=== PATIENT | female | born 1955 | race Caucasian/White ===

== ENCOUNTER 2022-03-04 00:29 | Inpatient (IN) ==
--- NOTE | 2022-03-04 01:03 | Emergency Department Note ---
Abdominal Pain HPI General Chief Complaint: Abdominal Pain Stated Complaint: ABD PAIN Time Seen by Provider: 03/04/22 00:36 Source: patient and EMS Mode of arrival: EMS Limitations: no limitations History of Present Illness HPI Narrative: Narrative: Patient presents to the ED via EMS with complaints of abdominal pain. Pain is rated 10/10 describes as achy all over. Says the pain has been worsening over the last 3 days. She also states that her ostomy bag has been leaking. Patient denies fever, chills, nausea, vomiting, hematuria, Arthur frequency. She denies any recent drug use. She states that she used to use meth she That was long time ago she has not used Many years. states she had the Ostomy placed about 3 months ago. She states it was done at our facility. Patient denies any other alleviating or aggravating factors. Patient states that she has nobody at home to care for her and she can no longer care for herself. Related Data Home Medications Medication Instructions Recorded Confirmed albuterol sulfate 90 mcg/actuation 2 puff inhalation .Q4-6H 03/03/17 12/21/18 aerosol inhaler (ProAir HFA) lisinopril 40 mg tablet 40 mg PO QDAY 03/03/17 12/21/18 verapamil 80 mg tablet 80 mg PO TID 03/03/17 12/21/18 gabapentin 100 mg capsule 100 mg PO TID 10/05/18 12/21/18 levothyroxine 200 mcg tablet 200 mcg PO QDAY 12/21/18 12/21/18 (Synthroid) levothyroxine 25 mcg tablet 25 mcg PO QDAY 12/21/18 12/21/18 (Synthroid) Previous Rx's Medication Instructions Recorded food supplemt, lactose-reduced 1 each PO QDAY #7,110 mL 12/10/18 oxycodone-acetaminophen 10 mg-325 See Rx Instructions PO Q6H PRN 03/21/19 mg tablet (Percocet) pain #60 tabs apixaban 5 mg (74 tabs) tablets in 5 mg PO ONCE #74 tabs 03/14/21 a dose pack (Eliquis DVT-PE Treat 30D Start) hydrocodone 5 mg-acetaminophen 325 1 tab PO Q8H PRN pain #12 tabs 03/14/21 mg tablet apixaban 5 mg tablet (Eliquis) 5 mg PO BID #60 tabs 04/28/21 clindamycin HCl 300 mg capsule 600 mg PO TID #14 caps 04/28/21 lisinopril 40 mg tablet 40 mg PO QDAY #30 tabs 06/12/21 Allergies Allergy/AdvReac Type Severity Reaction Status Date / Time codeine Allergy Unknown Verified 02/02/22 12:53 prochlorperazine Allergy Unknown Verified 02/02/22 12:53 [From Compazine] pseudoephedrine Allergy Unknown Verified 02/02/22 12:53 [From Sudafed] Review of Systems ROS ROS Narrative: Narrative: All systems ED: reviewed and negative except as stated. [facility] Narrative Patient History Narrative: Narrative: Medical/Surgical/Family History All Active Problems (Updated 03/04/22 @ 03:56 by Abiodun Giraldo DO) DVT (deep venous thrombosis) (Acute) Encounter for wound care (Acute) Painless rectal bleeding (Acute) Leg wound, right (Acute) Head injury due to trauma (Acute) Fall (Acute) Opioid abuse with withdrawal (Acute) Laceration of scalp (Acute) H/O Angelique thyroiditis (Acute) Hypertension (Acute) Encounter for ostomy care education (Acute) Influenza-like symptoms (Acute) Abdominal pain (Acute) Unable to care for self (Acute) Acute dehydration (Acute) Colostomy malfunction (Acute) Encounter for long-term (current) use of medications (Chronic) Unintentional weight loss (Chronic) Stress at home (Chronic) PTSD (post-traumatic stress disorder) (Chronic) Laceration without foreign body of right ear, initial encounter (Chronic) Osteoarthritis (Chronic) Thyroid disorder (Chronic) Urine incontinence (Chronic) Bronchitis (Chronic) Asthma (Chronic) Fainting (Chronic) Dizziness (Chronic) Heart attack (Chronic) Shortness of breath (Chronic) Chest pain (Chronic) Headache (Chronic) Lupus (Chronic) History of hepatitis C (Chronic) Tobacco abuse (Chronic) Hypertension (Chronic) Neck pain, chronic (Chronic) Failure to gain weight in adult (Chronic) Actinic keratosis (Chronic) DDD (degenerative disc disease), cervical (Chronic) Vitamin D deficiency (Chronic) Angelique's thyroiditis (Chronic) Raynauds phenomenon (Chronic) Rib pain on right side (Chronic) Arthritis (Chronic) Elevated troponin (Acute) Hypothyroidism (Acute) Hypertensive urgency (Acute) Urinary tract infection (Acute) Myxedema (Acute) Medical History (Updated 03/04/22 @ 03:56 by Abiodun Giraldo DO) Actinic keratosis Arthritis Asthma Bronchitis Chest pain DDD (degenerative disc disease), cervical Dizziness Elevated troponin Encounter for long-term (current) use of medications Failure to gain weight in adult Fainting Gout Angelique's thyroiditis Headache Heart attack History of hepatitis C Hypertension Hypertensive urgency Hypothyroidism Laceration without foreign body of right ear, initial encounter Lupus Myxedema Neck pain, chronic Osteoarthritis Peptic ulcer Poor sleep PTSD (post-traumatic stress disorder) Raynauds phenomenon Rib pain on right side Shortness of breath Stress at home Thyroid disorder Tobacco abuse Unintentional weight loss Urinary tract infection Urine incontinence Vitamin D deficiency Surgical History History of eye surgery (~1960) Family History Mother , age 73 cancer and heart failure Glaucoma Thyroid disease Kidney disease Hypertension Heart disease Diabetes Asthma Arthritis Father Glaucoma Cancer Thyroid disease Hypertension Diabetes Arthritis Grandmother Cancer Maternal Thyroid disease Maternal Hypertension Maternal Heart disease Maternal Diabetes Maternal Arthritis Maternal Stroke Paternal Grandfather Cancer Maternal Arthritis Maternal Stroke Paternal Brother Heroin addiction Other Family history of drug abuse Family history of mental disorder Social History Smoking Status: Current every day smoker Alcohol Intake Frequency: does not drink Substance Use: does not use Exam Narrative Narrative: Narrative: General Limitations: no limitations General appearance: Present appears intoxicated ENT ENT: Present normal oropharynx and mucous membranes dry Respiratory Respiratory: Present normal lung sounds bilaterally; Absent respiratory distress Cardiovascular Cardiovascular: Present regular rate and normal rhythm Adbominal Abdominal: Present soft, tenderness and other (Right-sided ostomy) Expanded Abdominal Abdominal Tenderness: Present diffuse Extremities Extremities: Present normal capillary refill Back Back: Absent CVA tenderness (R) or CVA tenderness (L) Neurological Neurological: Present alert and oriented X3 Psychiatric Psychiatric: Present flat affect and serious Skin Skin: Present warm (WNL) and normal color Course Course Course Narrative: Patient was evaluated for complaints of abdominal pain. Physical exam showed that she had diffuse tenderness to palpation. Her ostomy was leaking so it was changed out. There is no signs of infection around the ostomy site. Patient was covered in feces from her chin down to her ankles. The nurses did a good job in and clean her up. Patient Asked for food to eat but I advised her that we would have to wait until we get the CT results. Labs were obtained and were unremarkable with the exception of elevated BUN and creatinine suggestive of dehydration. Patient was given some IV fluids. Her white cell count was within normal limits. She was afebrile with a normal lactic acid. CT abdomen pelvis obtained with image reviewed myself with no acute intra-abdominal findings. Pancreatitis, appendicitis, small bowel obstruction wall considered and ruled out. Patient became anxious so she was given some IV Benadryl given some Tylenol for her discomfort. She was given a meal she stated that she felt much better. Patient states that she lives alone and she cannot take care of herself. Patient was seen over at [facility] recently and I obtain those records. During that time Adult Protective Services was contacted and the case was started due to the fact that patient's living conditions were unsatisfactory. At this point patient does not meet admission criteria but she has also proven not to be able to care for herself. It is my opinion that she is not a safe discharge. We will keep patient here in the ED and have case management consult in the morning to see if we can find placement or help for the patient. Patient is agreeable with this plan. Case is signed out to Dr. rBown at [phone] who will assume care pending case management evaluation for disposition. Reevaluation(s) Reevaluation #1: Patient remains hemodynamic stable. No new complaints at this time. Time: 01:45 Vital Signs Vital signs: Vital Signs Temperature 97.5 F 03/04/22 00:31 Pulse Rate 79 03/04/22 00:31 Respiratory Rate 17 03/04/22 00:31 Blood Pressure 197/122 03/04/22 00:31 Temperature 97.5 F 03/04/22 00:31 Pulse Rate 89 03/04/22 04:12 Respiratory Rate 17 03/04/22 00:31 Blood Pressure 178/117 03/04/22 04:01 Pulse Oximetry (%) 94 03/04/22 04:12 MDM MDM Narrative Medical decision making narrative: Narrative: Differential Diagnosis Differential Diagnosis: Bowel obstruction, pancreatitis, appendicitis Medical Records Medical records reviewed: Yes I reviewed the patient's medical records. Lab Data Lab results reviewed: Yes I reviewed the patient's lab results. Result diagrams: 03/04/22 01:40 Labs: Lab Results 03/04/22 03/04/22 03/04/22 Range/Units 01:31 01:40 01:40 WBC 10.3 (4.5-11.0) K/mcL RBC 4.86 (3.59-5.38) M/mcL Hgb 14.4 (11.2-15.7) g/dL Hct 44.2 (34.1-44.9) % POC Hct (36-48) MCV 90.9 (80.0-100.0) fL MCH 29.6 (26.0-34.0) pg MCHC 32.6 (31.0-36.0) g/dL RDW 14.9 H (11.5-14.5) % Plt Count 280 (140-440) K/mcL MPV 11.3 (8.8-12.5) fL Immature Gran % (Auto) 0.8 H (0.0-0.5) % Neut % (Auto) 65.3 (38.0-78.0) % Lymph % (Auto) 26.6 (15.5-49.0) % [place] % (Auto) 6.0 (1.0-12.0) % Eos % (Auto) 0.7 (0.0-7.0) % Baso % (Auto) 0.6 (0.0-2.0) % Lymph # (Auto) 2.73 (1.50-4.80) K/mcL [place] # (Auto) 0.62 (0.10-0.90) K/mcL Eos # (Auto) 0.07 (0.00-0.70) K/mcL Baso # (Auto) 0.06 (0.00-0.30) K/mcL Immature Gran # 0.08 H (0.00-0.05) K/mcl Absolute Neutrophils 6.72 (1.80-8.00) K/mcL POC VBG pH 7.40 (7.32-7.42) POC VBG pCO2 at Temp 42.6 (41-51) POC VBG pO2 28 (25-40) POC VBG HCO3 26.4 (24-28) POC VBG Total CO2 28.0 (25-29) POC Venous O2 Sat 52.0 (40-70) POC VBG Base Excess 2.0 (-2-2) VBG Lactic Acid 1.0 (0.5-2) POC Sodium (133-145) POC Potassium (3.3-5.1) POC Chloride (96-108) POC Total CO2 (22-30) POC BUN (6-20) POC Creatinine (0.6-1.2) POC Glucose (70-105) POC WB Ioniz Calcium (1.16-1.32) Total Bilirubin 0.3 (0.1-1.0) mg/dL Direct Bilirubin < 0.2 (0-0.3) mg/dL AST 41 H (<32) U/L ALT 21 (<40) U/L Alkaline Phosphatase 87 (39-117) U/L Total Protein 8.3 (5.9-8.4) gm/dL Albumin 3.7 (3.2-5.2) gm/dL Globulin 4.6 H (2.2-3.7) gm/dL Amylase 149 H (28-100) U/L Lipase 61 H (7-60) U/L Procalcitonin (<0.10) ng/mL 03/04/22 03/04/22 Range/Units 01:40 01:55 WBC (4.5-11.0) K/mcL RBC (3.59-5.38) M/mcL Hgb (11.2-15.7) g/dL Hct (34.1-44.9) % POC Hct 44.0 (36-48) MCV (80.0-100.0) fL MCH (26.0-34.0) pg MCHC (31.0-36.0) g/dL RDW (11.5-14.5) % Plt Count (140-440) K/mcL MPV (8.8-12.5) fL Immature Gran % (Auto) (0.0-0.5) % Neut % (Auto) (38.0-78.0) % Lymph % (Auto) (15.5-49.0) % [place] % (Auto) (1.0-12.0) % Eos % (Auto) (0.0-7.0) % Baso % (Auto) (0.0-2.0) % Lymph # (Auto) (1.50-4.80) K/mcL [place] # (Auto) (0.10-0.90) K/mcL Eos # (Auto) (0.00-0.70) K/mcL Baso # (Auto) (0.00-0.30) K/mcL Immature Gran # (0.00-0.05) K/mcl Absolute Neutrophils (1.80-8.00) K/mcL POC VBG pH (7.32-7.42) POC VBG pCO2 at Temp (41-51) POC VBG pO2 (25-40) POC VBG HCO3 (24-28) POC VBG Total CO2 (25-29) POC Venous O2 Sat (40-70) POC VBG Base Excess (-2-2) VBG Lactic Acid (0.5-2) POC Sodium 139 (133-145) POC Potassium 4.3 (3.3-5.1) POC Chloride 107 (96-108) POC Total CO2 23.0 (22-30) POC BUN 26 H (6-20) POC Creatinine 1.8 H (0.6-1.2) POC Glucose 80 (70-105) POC WB Ioniz Calcium 1.13 L (1.16-1.32) Total Bilirubin (0.1-1.0) mg/dL Direct Bilirubin (0-0.3) mg/dL AST (<32) U/L ALT (<40) U/L Alkaline Phosphatase (39-117) U/L Total Protein (5.9-8.4) gm/dL Albumin (3.2-5.2) gm/dL Globulin (2.2-3.7) gm/dL Amylase (28-100) U/L Lipase (7-60) U/L Procalcitonin 0.11 H (<0.10) ng/mL ED POC Tests ED POC Tests: NIRAV - Influenza A Negative NIRAV - Influenza B Negative NIRAV - SARS Antigen Negative Radiology Data Radiology results reviewed: Yes I reviewed the patient's radiology results. Radiology results narrative: CT abdomen pelvis obtained with image reviewed myself, agree with radiologist interpretation EKG Data EKG #1: EKG attestation: Yes I reviewed and interpreted this EKG. EKG shows normal: sinus rhythm Rate: normal Rhythm: NSR [place]/QRS: normal Voltage: c/w LVH Heart block present: None ST segment elevation in: None QTc: prolonged Interpretation: no acute changes Core Measures AMI Core Measures Followed: Yes Discharge Plan Patient/Caregiver Discharge Instructions Pt seen by TRANSPORTATION DIRECTOR/PA only: No Clinical Impression: Unable to care for self, Acute dehydration, Colostomy malfunction Abdominal pain Qualifiers: Abdominal location: generalized Qualified Code(s): R10.84 - Generalized abdomi nal pain Patient Disposition: Still a Patient Condition: Undetermined Follow up with: Ambreen Braden MD [Primary Care Provider] - Prescriptions: No Action levothyroxine [Synthroid] 200 mcg tablet 200 mcg PO QDAY levothyroxine [Synthroid] 25 mcg tablet 25 mcg PO QDAY food supplemt, lactose-reduced liquid 1 each PO QDAY Qty: 7110 6RF oxycodone-acetaminophen [Percocet] 10-325 mg tablet See Rx Instructions PO Q6H PRN (Reason: pain) Qty: 60 0RF Rx Instructions: 1-2 PO every 6 hours PRN; verapamil 80 mg tablet 80 mg PO TID lisinopril 40 mg tablet 40 mg PO QDAY albuterol sulfate [ProAir HFA] 90 mcg/actuation HFA aerosol inhaler 2 puff INHALATION .Q4-6H gabapentin 100 mg capsule 100 mg PO TID hydrocodone-acetaminophen 5-325 mg tablet 1 tab PO Q8H PRN (Reason: pain) Qty: 12 0RF Eliquis DVT-PE Treat 30D Start 5 mg (74 tabs) tablets,dose pack 5 mg PO ONCE Qty: 74 0RF Rx Instructions: Take 10 mg twice daily for 7 days and then 5 mg twice daily for the next 3 weeks. clindamycin HCl 300 mg capsule 600 mg PO TID Qty: 14 0RF Eliquis 5 mg tablet 5 mg PO BID Qty: 60 0RF lisinopril 40 mg tablet 40 mg PO QDAY Qty: 30 0RF
[2022-03-04] MEDS ORDERED: hydrALAZINE 20 MG/ML VIAL IM ONE (01:38)
[2022-03-04 01:59] LABS: POC Calcium, Ionized 1.13 (1.16-1.32); POC Creatinine 1.8 (0.6-1.2); POC Potassium 4.3 (3.3-5.1)
[2022-03-04] MEDS ORDERED: 0.9 % SODIUM CHLORIDE 1,000 ML IV ONE (02:01)
[2022-03-04 02:55] LABS: Basophils # (Auto) 0.06 K/mcL (0.00-0.30); Basophils % (Auto) 0.6 % (0.0-2.0); Eosinophils # (Auto) 0.07 K/mcL (0.00-0.70); Eosinophils % (Auto) 0.7 % (0.0-7.0); Hematocrit 44.2 % (34.1-44.9); Hemoglobin 14.4 g/dL (11.2-15.7); Lymphocytes # (Auto) 2.73 K/mcL (1.50-4.80); Lymphocytes % (Auto) 26.6 % (15.5-49.0); Mean Cell Volume 90.9 fL (80.0-100.0); Mean Corpuscular HGB Conc 32.6 g/dL (31.0-36.0); Mean Platelet Volume 11.3 fL (8.8-12.5); Monocytes # (Auto) 0.62 K/mcL (0.10-0.90); Neutrophils % (Auto) 65.3 % (38.0-78.0); Platelet Count 280 K/mcL (140-440); RBC 4.86 M/mcL (3.59-5.38); Red Cell Distribution Width 14.9 % (11.5-14.5); WBC 10.3 K/mcL (4.5-11.0)
[2022-03-04 03:20] LABS: Amylase 149 U/L (28-100)
--- NOTE | 2022-03-04 03:22 | Cat Scan Report ---
CLINICAL INFORMATION: Abdominal pain COMPARISON: None. TECHNIQUE: 0.625 mm helical slices were obtained from the mid heart through the subtrochanteric regions. Following reconstruction, 2.5 mm sagittal, coronal and axial reformatted images were processed and reviewed at bone and soft tissue windows.The exam was performed using radiation dose optimization techniques including, but not limited to, automated exposure control, adjustment of the mA and/or kV according to patient size and use of iterative reconstruction technique. FINDINGS: The lung bases show subsegmental atelectasis in the posterior lower lobes.. No effusions. The visualized heart is mildly enlarged with a small pericardial effusion. This is unchanged. Abdominal images show the gallbladder is surgically absent. Intrahepatic and common bile ducts are normal caliber: CBD is 6 mm. The noncontrasted liver, both kidneys, spleen, pancreas and aorta are normal in size, configuration and attenuation without focal lesion. Mild bilateral adrenal hyperplasia demonstrates long-term stability since CT 2017. There is no free air, free fluid or adenopathy. Pelvic images show urinary bladder is unremarkable. Slightly retroflexed uterus is normal postmenopausal size: 6 x 3 cm. The region of the ovaries are normal. Partial colectomy noted with colostomy in the right upper quadrant. Pruett's pouch is seen in the pelvic region. Small and large bowel show mild symmetric dilatation patible with mild ileus. No evidence of bowel obstruction. The right iliacus hematoma, seen on 11/07/2021 CT, has completely resolved. Muscle and fascial planes otherwise normal. Bone windows show no osseous abnormality. IMPRESSION: 1. Mild ileus. 2. Small chronic pericardial effusion-stable. 3. Mild chronic elevation left diaphragm-stable 4. Complete interval resolution in right iliacus hematoma since a comparison exam over four months ago. 5. Mild bilateral adrenal hyperplasia-chronic Interpreted and Authenticated by: Dave Fair 03/04/22
[2022-03-04 03:23] LABS: ALT/SGPT 21 U/L (<40); AST/SGOT 41 U/L (<32); Albumin 3.7 gm/dL (3.2-5.2); Alkaline Phosphatase 87 U/L (39-117); Bilirubin,Direct < 0.2 mg/dL (0-0.3); Bilirubin,Total 0.3 mg/dL (0.1-1.0); Globulin 4.6 gm/dL (2.2-3.7)
[2022-03-04] MEDS ORDERED: ACETAMINOPHEN 325 MG TABLET PO ONE (04:03)
[2022-03-04] MEDS ORDERED: diphenhydrAMINE 50 MG/ML VIAL IV ONE (04:03)
[2022-03-04] MEDS ORDERED: diphenhydrAMINE 50 MG/ML VIAL IM ONE (04:07)
--- NOTE | 2022-03-04 07:23 | Emergency Department Note ---
Course Course Course Narrative: Received care of patient at shift change with transfer for Dr. Abiodun Giraldo, prior nighttime ED physician. Please see previous chart for full details. In general this patient has a history of using colostomy and has some social determinants of health to include a lack of help to manage her colostomy at home. She came with complaint of abdominal pain and colostomy over full with stool all over her body. Currently pending a case management evaluation for disposition. 0802: RN caring for patient does report that she pulled her IV out and she is combative requests Ativan to help with NG tube insertion and to reestablish IV line. Ativan 0.5 mg IM ordered. 1006: Advised RN caring for patient that NG tube went up and bronchial of the lung and radiologist recommended removing this. She did remove this and try to reinsert but had difficulty getting it reinserted and had significant bout of coughing suggesting she might be back in the lung again. The tube was then removed altogether. I will speak with Dr. Summers, on-call general surgeon for his recommendations. 1107: Spoke with Parvez with [facility], requests images be transfered over. Their General Surgeon is in surgery now. Will call back when Surgeon is available for consult. 1535: Advised ED DANIAL Joseph that Dr. Summers willing to consult from General Surgery Standpoint. Will try and get Dr. Weiss on the line. 1540: Spoke with Dr. Weiss, hospitalist, advised him that I spoke with 2 general surgeons both with that this is not a surgical issue. This is more of a social admit request and he is willing the patient and to hopefully help get her placement. Discussed all patient's lab results, presentation, imaging results and consults with Dr. Summers, general surgeon as well as with the [place] general surgeon. Dr. Summers is willing to consult. He will bring the patient in under observation status to the medical floor. Reevaluation(s) Reevaluation #1: Advised by RN caring for patient patient that their is blood in her colostomy bag. As she does seem to be confused. Reevaluated, stable, has bowel exiting the stoma that is very tender on attempt to reduce, bowel seems distended from the STOMA. RN did report that patient had alot of gas in her colostomy bag. Will give Protonix and Pepcid IV to see if this will help with her bleeding. We will review all CT imaging and consider getting repeat lactate and VBG to evaluate for acidosis and any kind of bowel necrosis. Time: 07:49 Reevaluation #2: Reevaluated patient at bedside with Dr. Browne in her room. Dr. Browne did try to manually reduce the stomal herniation and did not have great success but did get the tissue pink up a little bit but I answered his finger into the canal of the ostomy and explored deeply. He states that it does go down through the fascia and he does not feel that there is a surgical issue here however she is pretty hypertensive at 205 systolic at the bedside. He suggested for her to hospitalize her she should probably go up to [facility] where she had this colostomy placed in the right upper quadrant a few months ago. Dr. Tristan chandra did suggest applying sugar to the tissues on the herniated tissue through the stoma and see if this would help reduce the herniated bowel. Time: 10:30 Consultations Consultation #1: Spoke with Dr. Summers, general surgeon on-call. He states that he is reviewed the images and the labs and everything and does not feel that she has acute surgical process but will come down and see the patient. Time: 10:12 Consultation #2: With Dr. Herring, general surgeon on-call at [facility], he has reviewed patient's films. He does not feel there is anything surgically can offer her [facility] their house is full and they do not have ability to bring her there for hospitalist care. Time: 14:22 Consultation #3: Spoke with Dr. Summers, general surgeon, he is willing to consult in the event patient is admitted here to this hospital. Time: 15:31 Vital Signs Vital signs: Vital Signs Temperature 97.5 F 03/04/22 00:31 Pulse Rate 79 03/04/22 00:31 Respiratory Rate 17 03/04/22 00:31 Blood Pressure 197/122 03/04/22 00:31 Temperature 99.6 F H 03/04/22 11:01 Pulse Rate 87 03/04/22 15:24 Respiratory Rate 24 H 03/04/22 15:24 Blood Pressure 152/109 03/04/22 15:17 Pulse Oximetry (%) 97 03/04/22 15:24 Oxygen Delivery Method 03/04/22 09:16 MDM MDM Narrative Medical decision making narrative: Narrative: Patient presents to the emerged part with complaint of abdominal pain. Please see HPI, physical, chart above for further details. In short patient has a colostomy bag that was completely full and has stool basically head to toe. She used to have a caregiver but no longer does and has not able to care for self effectively at home. CT of the abdomen pelvis does show that she had a little bit of ileus. No obstruction was noted. We did attempt to place an NG tube to low intermittent suction to hopefully reduce this but were unsuccessful as we had in the lungs twice. NG tube was removed. I consulted Dr. Summers, general surgeon, who did come see the patient and did not feel that she had a surgical process. He recommended that if were going to transfer her that she might should go back to the original facility that did her colonoscopy. VALENTIN Saldaña later advised me that this was [facility] who does not have any beds available. So we then did Talk to [facility] where she had previously had other GI surgery performed and I spoke with the general surgeon there and he does not feel after reviewing her images and listening to her clinical presentation and progress that she did not need surgical intervention either. I subsequently spoke with Dr. Summers again to see if he be willing to consult if we bring the patient in to the hospital. [facility] for observation status and hopefully getting her some help with management of her health as she does not appear to be able to do this effectively. Dr. Summers was willing to consult and I then spoke with Dr. Weiss, hospitalist on-call, who is willing to admit the patient to the hospital under observation status to help get her placed. Sepsis Sepsis Identified: No Differential Diagnosis Differential Diagnosis: Includes but not limited to bowel obstruction, ileus, substance abuse Medical Records Medical records reviewed: Yes I reviewed the patient's medical records. Lab Data Result diagrams: 03/04/22 01:40 Labs: Lab Results 03/04/22 03/04/22 03/04/22 Range/Units 01:31 01:40 01:40 WBC 10.3 (4.5-11.0) K/mcL RBC 4.86 (3.59-5.38) M/mcL Hgb 14.4 (11.2-15.7) g/dL Hct 44.2 (34.1-44.9) % POC Hct (36-48) MCV 90.9 (80.0-100.0) fL MCH 29.6 (26.0-34.0) pg MCHC 32.6 (31.0-36.0) g/dL RDW 14.9 H (11.5-14.5) % Plt Count 280 (140-440) K/mcL MPV 11.3 (8.8-12.5) fL Immature Gran % (Auto) 0.8 H (0.0-0.5) % Neut % (Auto) 65.3 (38.0-78.0) % Lymph % (Auto) 26.6 (15.5-49.0) % [place] % (Auto) 6.0 (1.0-12.0) % Eos % (Auto) 0.7 (0.0-7.0) % Baso % (Auto) 0.6 (0.0-2.0) % Lymph # (Auto) 2.73 (1.50-4.80) K/mcL [place] # (Auto) 0.62 (0.10-0.90) K/mcL Eos # (Auto) 0.07 (0.00-0.70) K/mcL Baso # (Auto) 0.06 (0.00-0.30) K/mcL Immature Gran # 0.08 H (0.00-0.05) K/mcl Absolute Neutrophils 6.72 (1.80-8.00) K/mcL POC VBG pH 7.40 (7.32-7.42) POC VBG pCO2 at Temp 42.6 (41-51) POC VBG pO2 28 (25-40) POC VBG HCO3 26.4 (24-28) POC VBG Total CO2 28.0 (25-29) POC Venous O2 Sat 52.0 (40-70) POC VBG Base Excess 2.0 (-2-2) VBG Lactic Acid 1.0 (0.5-2) POC Sodium (133-145) POC Potassium (3.3-5.1) POC Chloride (96-108) POC Total CO2 (22-30) POC BUN (6-20) POC Creatinine (0.6-1.2) POC Glucose (70-105) POC WB Ioniz Calcium (1.16-1.32) Total Bilirubin 0.3 (0.1-1.0) mg/dL Direct Bilirubin < 0.2 (0-0.3) mg/dL AST 41 H (<32) U/L ALT 21 (<40) U/L Alkaline Phosphatase 87 (39-117) U/L Total Creatine Kinase (24-170) U/L CK-MB (CK-2) (<3.7) ng/mL Total Protein 8.3 (5.9-8.4) gm/dL Albumin 3.7 (3.2-5.2) gm/dL Globulin 4.6 H (2.2-3.7) gm/dL Amylase 149 H (28-100) U/L Lipase 61 H (7-60) U/L Procalcitonin (<0.10) ng/mL TSH (0.27-5.01) uIU/mL Free T4 (0.93-1.70) ng/dL Urine Color Urine Appearance (Clear) Urine pH (5.0-9.0) Ur Specific Mongo (1.000-1.035) Urine Protein (Negative) mg/dL Urine Glucose (UA) (Negative) mg/dL Urine Ketones (Negative) mg/dL Urine Occult Blood (Negative) jair/mcL Urine Nitrate (Negative) Urine Bilirubin (Negative) mg/dL Urine Urobilinogen mg/dL Ur Leukocyte Esterase (Negative) /uL Urine RBC (0-3) /hpf Urine WBC (0-4) /hpf Ur Squamous Epith Cells (0-4) /hpf Urine Bacteria (0) /hpf Hyaline Casts (0-2) /lph Urine Mucus (None) /hpf Ur Culture Indicated? Urine Opiates Screen Ur Opiates Confirm Ur Oxycodone Screen U Oxycod/Oxymor Confirm Urine Methadone Screen Ur Methadone Confirm Ur Barbiturates Screen Ur Barbiturate Confirm Ur Phencyclidine Scrn Urine PCP Confirm Ur Amphetamines Screen U Benzodiazepines Scrn Ur Benzodiazepine, Qnt Urine Cocaine Screen Urine Cocaine Confirm U Marijuana (THC) Screen 03/04/22 03/04/22 03/04/22 Range/Units 01:40 01:55 08:00 WBC (4.5-11.0) K/mcL RBC (3.59-5.38) M/mcL Hgb (11.2-15.7) g/dL Hct (34.1-44.9) % POC Hct 44.0 (36-48) MCV (80.0-100.0) fL MCH (26.0-34.0) pg MCHC (31.0-36.0) g/dL RDW (11.5-14.5) % Plt Count (140-440) K/mcL MPV (8.8-12.5) fL Immature Gran % (Auto) (0.0-0.5) % Neut % (Auto) (38.0-78.0) % Lymph % (Auto) (15.5-49.0) % [place] % (Auto) (1.0-12.0) % Eos % (Auto) (0.0-7.0) % Baso % (Auto) (0.0-2.0) % Lymph # (Auto) (1.50-4.80) K/mcL [place] # (Auto) (0.10-0.90) K/mcL Eos # (Auto) (0.00-0.70) K/mcL Baso # (Auto) (0.00-0.30) K/mcL Immature Gran # (0.00-0.05) K/mcl Absolute Neutrophils (1.80-8.00) K/mcL POC VBG pH (7.32-7.42) POC VBG pCO2 at Temp (41-51) POC VBG pO2 (25-40) POC VBG HCO3 (24-28) POC VBG Total CO2 (25-29) POC Venous O2 Sat (40-70) POC VBG Base Excess (-2-2) VBG Lactic Acid (0.5-2) POC Sodium 139 (133-145) POC Potassium 4.3 (3.3-5.1) POC Chloride 107 (96-108) POC Total CO2 23.0 (22-30) POC BUN 26 H (6-20) POC Creatinine 1.8 H (0.6-1.2) POC Glucose 80 (70-105) POC WB Ioniz Calcium 1.13 L (1.16-1.32) Total Bilirubin (0.1-1.0) mg/dL Direct Bilirubin (0-0.3) mg/dL AST (<32) U/L ALT (<40) U/L Alkaline Phosphatase (39-117) U/L Total Creatine Kinase (24-170) U/L CK-MB (CK-2) (<3.7) ng/mL Total Protein (5.9-8.4) gm/dL Albumin (3.2-5.2) gm/dL Globulin (2.2-3.7) gm/dL Amylase (28-100) U/L Lipase (7-60) U/L Procalcitonin 0.11 H (<0.10) ng/mL TSH > 100 H (0.27-5.01) uIU/mL Free T4 < 0.10 L (0.93-1.70) ng/dL Urine Color Urine Appearance (Clear) Urine pH (5.0-9.0) Ur Specific Mongo (1.000-1.035) Urine Protein (Negative) mg/dL Urine Glucose (UA) (Negative) mg/dL Urine Ketones (Negative) mg/dL Urine Occult Blood (Negative) jair/mcL Urine Nitrate (Negative) Urine Bilirubin (Negative) mg/dL Urine Urobilinogen mg/dL Ur Leukocyte Esterase (Negative) /uL Urine RBC (0-3) /hpf Urine WBC (0-4) /hpf Ur Squamous Epith Cells (0-4) /hpf Urine Bacteria (0) /hpf Hyaline Casts (0-2) /lph Urine Mucus (None) /hpf Ur Culture Indicated? Urine Opiates Screen Ur Opiates Confirm Ur Oxycodone Screen U Oxycod/Oxymor Confirm Urine Methadone Screen Ur Methadone Confirm Ur Barbiturates Screen Ur Barbiturate Confirm Ur Phencyclidine Scrn Urine PCP Confirm Ur Amphetamines Screen U Benzodiazepines Scrn Ur Benzodiazepine, Qnt Urine Cocaine Screen Urine Cocaine Confirm U Marijuana (THC) Screen 03/04/22 03/04/22 03/04/22 Range/Units 08:29 08:30 08:34 WBC (4.5-11.0) K/mcL RBC (3.59-5.38) M/mcL Hgb (11.2-15.7) g/dL Hct (34.1-44.9) % POC Hct (36-48) MCV (80.0-100.0) fL MCH (26.0-34.0) pg MCHC (31.0-36.0) g/dL RDW (11.5-14.5) % Plt Count (140-440) K/mcL MPV (8.8-12.5) fL Immature Gran % (Auto) (0.0-0.5) % Neut % (Auto) (38.0-78.0) % Lymph % (Auto) (15.5-49.0) % [place] % (Auto) (1.0-12.0) % Eos % (Auto) (0.0-7.0) % Baso % (Auto) (0.0-2.0) % Lymph # (Auto) (1.50-4.80) K/mcL [place] # (Auto) (0.10-0.90) K/mcL Eos # (Auto) (0.00-0.70) K/mcL Baso # (Auto) (0.00-0.30) K/mcL Immature Gran # (0.00-0.05) K/mcl Absolute Neutrophils (1.80-8.00) K/mcL POC VBG pH 7.54 H 7.37 (7.32-7.42) POC VBG pCO2 at Temp 23.0 L 38.4 L (41-51) POC VBG pO2 73 H 36 (25-40) POC VBG HCO3 19.6 L 22.3 L (24-28) POC VBG Total CO2 20.0 L 23.0 L (25-29) POC Venous O2 Sat 97.0 H 68.0 (40-70) POC VBG Base Excess -3.0 L -3.0 L (-2-2) VBG Lactic Acid 1.1 1.4 (0.5-2) POC Sodium (133-145) POC Potassium (3.3-5.1) POC Chloride (96-108) POC Total CO2 (22-30) POC BUN (6-20) POC Creatinine (0.6-1.2) POC Glucose (70-105) POC WB Ioniz Calcium (1.16-1.32) Total Bilirubin (0.1-1.0) mg/dL Direct Bilirubin (0-0.3) mg/dL AST (<32) U/L ALT (<40) U/L Alkaline Phosphatase (39-117) U/L Total Creatine Kinase 539 H (24-170) U/L CK-MB (CK-2) 17.4 H (<3.7) ng/mL Total Protein (5.9-8.4) gm/dL Albumin (3.2-5.2) gm/dL Globulin (2.2-3.7) gm/dL Amylase (28-100) U/L Lipase (7-60) U/L Procalcitonin (<0.10) ng/mL TSH (0.27-5.01) uIU/mL Free T4 (0.93-1.70) ng/dL Urine Color Urine Appearance (Clear) Urine pH (5.0-9.0) Ur Specific [place] (1.000-1.035) Urine Protein (Negative) mg/dL Urine Glucose (UA) (Negative) mg/dL Urine Ketones (Negative) mg/dL Urine Occult Blood (Negative) jair/mcL Urine Nitrate (Negative) Urine Bilirubin (Negative) mg/dL Urine Urobilinogen mg/dL Ur Leukocyte Esterase (Negative) /uL Urine RBC (0-3) /hpf Urine WBC (0-4) /hpf Ur Squamous Epith Cells (0-4) /hpf Urine Bacteria (0) /hpf Hyaline Casts (0-2) /lph Urine Mucus (None) /hpf Ur Culture Indicated? Urine Opiates Screen Ur Opiates Confirm Ur Oxycodone Screen U Oxycod/Oxymor Confirm Urine Methadone Screen Ur Methadone Confirm Ur Barbiturates Screen Ur Barbiturate Confirm Ur Phencyclidine Scrn Urine PCP Confirm Ur Amphetamines Screen U Benzodiazepines Scrn Ur Benzodiazepine, Qnt Urine Cocaine Screen Urine Cocaine Confirm U Marijuana (THC) Screen 03/04/22 03/04/22 Range/Units 09:45 09:45 WBC (4.5-11.0) K/mcL RBC (3.59-5.38) M/mcL Hgb (11.2-15.7) g/dL Hct (34.1-44.9) % POC Hct (36-48) MCV (80.0-100.0) fL MCH (26.0-34.0) pg MCHC (31.0-36.0) g/dL RDW (11.5-14.5) % Plt Count (140-440) K/mcL MPV (8.8-12.5) fL Immature Gran % (Auto) (0.0-0.5) % Neut % (Auto) (38.0-78.0) % Lymph % (Auto) (15.5-49.0) % [place] % (Auto) (1.0-12.0) % Eos % (Auto) (0.0-7.0) % Baso % (Auto) (0.0-2.0) % Lymph # (Auto) (1.50-4.80) K/mcL [place] # (Auto) (0.10-0.90) K/mcL Eos # (Auto) (0.00-0.70) K/mcL Baso # (Auto) (0.00-0.30) K/mcL Immature Gran # (0.00-0.05) K/mcl Absolute Neutrophils (1.80-8.00) K/mcL POC VBG pH (7.32-7.42) POC VBG pCO2 at Temp (41-51) POC VBG pO2 (25-40) POC VBG HCO3 (24-28) POC VBG Total CO2 (25-29) POC Venous O2 Sat (40-70) POC VBG Base Excess (-2-2) VBG Lactic Acid (0.5-2) POC Sodium (133-145) POC Potassium (3.3-5.1) POC Chloride (96-108) POC Total CO2 (22-30) POC BUN (6-20) POC Creatinine (0.6-1.2) POC Glucose (70-105) POC WB Ioniz Calcium (1.16-1.32) Total Bilirubin (0.1-1.0) mg/dL Direct Bilirubin (0-0.3) mg/dL AST (<32) U/L ALT (<40) U/L Alkaline Phosphatase (39-117) U/L Total Creatine Kinase (24-170) U/L CK-MB (CK-2) (<3.7) ng/mL Total Protein (5.9-8.4) gm/dL Albumin (3.2-5.2) gm/dL Globulin (2.2-3.7) gm/dL Amylase (28-100) U/L Lipase (7-60) U/L Procalcitonin (<0.10) ng/mL TSH (0.27-5.01) uIU/mL Free T4 (0.93-1.70) ng/dL Urine Color Lt. yellow Urine Appearance Clear (Clear) Urine pH 5.5 (5.0-9.0) Ur Specific Mongo 1.025 (1.000-1.035) Urine Protein 100 A (Negative) mg/dL Urine Glucose (UA) Negative (Negative) mg/dL Urine Ketones Negative (Negative) mg/dL Urine Occult Blood Small A (Negative) jair/mcL Urine Nitrate Positive A (Negative) Urine Bilirubin Negative (Negative) mg/dL Urine Urobilinogen Normal mg/dL Ur Leukocyte Esterase Negative (Negative) /uL Urine RBC 2 (0-3) /hpf Urine WBC 11 H (0-4) /hpf Ur Squamous Epith Cells 3 (0-4) /hpf Urine Bacteria Many A (0) /hpf Hyaline Casts 3 H (0-2) /lph Urine Mucus Few A (None) /hpf Ur Culture Indicated? yes Urine Opiates Screen None detected Ur Opiates Confirm TNP Ur Oxycodone Screen None detected U Oxycod/Oxymor Confirm TNP Urine Methadone Screen None detected Ur Methadone Confirm TNP Ur Barbiturates Screen None detected Ur Barbiturate Confirm TNP Ur Phencyclidine Scrn None detected Urine PCP Confirm TNP Ur Amphetamines Screen Suspect positive A U Benzodiazepines Scrn None detected Ur Benzodiazepine, Qnt TNP Urine Cocaine Screen None detected Urine Cocaine Confirm TNP U Marijuana (THC) Screen Suspect positive A ED POC Tests ED POC Tests: NIRAV - Influenza A Negative NIRAV - Influenza B Negative NIRAV - SARS Antigen Negative EKG Data EKG #1: EKG results narrative: EKG was obtained prior to my assuming care of the patient by Dr. Giraldo. Please see his interpretation on previous chart started by him the same day. Discharge Plan Patient/Caregiver Discharge Instructions Pt seen by SAILMAKER/PA only: No Clinical Impression: Abdominal pain, Unable to care for self, Acute dehydration, Colostomy malfunction, Hypertensive urgency, Ileus, Gastrointestinal bleeding, upper, Ac newtok alteration in mental status, Methamphetamine use, Marijuana use Patient Disposition: Xfer As Outpt/Obs ([facility]) Condition: Fair Follow up with: Ambreen Braden MD [Primary Care Provider] - Prescriptions: No Action levothyroxine [Synthroid] 200 mcg tablet 200 mcg PO QDAY levothyroxine [Synthroid] 25 mcg tablet 25 mcg PO QDAY food supplemt, lactose-reduced liquid 1 each PO QDAY Qty: 7110 6RF oxycodone-acetaminophen [Percocet] 10-325 mg tablet See Rx Instructions PO Q6H PRN (Reason: pain) Qty: 60 0RF Rx Instructions: 1-2 PO every 6 hours PRN; verapamil 80 mg tablet 80 mg PO TID lisinopril 40 mg tablet 40 mg PO QDAY albuterol sulfate [ProAir HFA] 90 mcg/actuation HFA aerosol inhaler 2 puff INHALATION .Q4-6H gabapentin 100 mg capsule 100 mg PO TID hydrocodone-acetaminophen 5-325 mg tablet 1 tab PO Q8H PRN (Reason: pain) Qty: 12 0RF Eliquis DVT-PE Treat 30D Start 5 mg (74 tabs) tablets,dose pack 5 mg PO ONCE Qty: 74 0RF Rx Instructions: Take 10 mg twice daily for 7 days and then 5 mg twice daily for the next 3 weeks. clindamycin HCl 300 mg capsule 600 mg PO TID Qty: 14 0RF Eliquis 5 mg tablet 5 mg PO BID Qty: 60 0RF lisinopril 40 mg tablet 40 mg PO QDAY Qty: 30 0RF
[2022-03-04] MEDS ORDERED: FAMOTIDINE/PF 20 MG/2 ML VIAL IV ONE (07:57)
[2022-03-04] MEDS ORDERED: PANTOPRAZOLE 40 MG VIAL IV ONE (07:57)
[2022-03-04] MEDS ORDERED: LORazepam 2 MG/ML VIAL IM ONE (08:05)
[2022-03-04] MEDS ORDERED: LORazepam 2 MG/ML VIAL IV ONE ×2 (08:45→09:13)
[2022-03-04 09:23] LABS: Creatine Kinase 539 U/L (24-170); Creatine Kinase MB 17.4 ng/mL (<3.7)
--- NOTE | 2022-03-04 10:02 | XRay Report ---
CLINICAL INFORMATION: NG placement COMPARISON: Portable chest 09/25/2021 TECHNIQUE: Portable FINDINGS: Cardiomegaly is accentuated by rightward rotation. Mediastinum and pulmonary vasculature unremarkable. NG tube is malpositioned extending through the trachea, right mainstem bronchus with the tip overlying segmental right lower lobe bronchi. Pulmonary vessels are normal. Minimal patchy airspace disease in both lungs likely represents atelectasis or fibrosis. No effusions. Diaphragm moderately elevated as before IMPRESSION: Malpositioned NG tube. Emergency room instructed to immediately withdraw the tube Interpreted and Authenticated by: Dave Fair 03/04/22
[2022-03-04] MEDS: METOPROLOL TARTRATE 5 MG/5 ML VIAL IV SCH ×3 (11:04→11:36)
--- NOTE | 2022-03-04 11:24 | General Surgery Consult Note ---
HPI Date of Consult Consult Date: 03/04/22 Requesting physician: Main Brown Primary Care Provider: Ambreen Braden Consult Narrative Chief complaint: Abdominal Pain Reason for consult: Stomal Issues History of present illness: Asked to see patient in consultation about issues with a RUQ end colostomy that appears to have some evidence of congestion and prolapse. She is currently unable to provide any information and is entirely non conversant at this time related in part apparently to drug use and medications. Staff reports that she had this ostomy placed at [facility] in [facility] recently this past fall and that she has also been under the care of [facility]. No additional info is available about the nature of her recent surgery or why a Right Sided Ostomy was placed. She is reportedly on Eliquis as well for a recent DVT but that information is also lacking. She presented with large volume stool and gas in her ostomy bag and a CT Scan was obtained showing no evidence of bowel obstruction. We were called as her ostomy has appeared prolapsed with congestion and some evidence of bleeding in the bag. cc:: CC: Review of Systems ROS unobtainable: due to mental status PFSH PFSH All Active Problems (Updated 03/04/22 @ 11:39 by Phil Summers MD) Prolapse of stoma (Acute) Hypertensive urgency (Acute) Ileus (Acute) Gastrointestinal bleeding, upper (Acute) Acute alteration in mental status (Acute) Ileus (Acute) DVT (deep venous thrombosis) (Acute) Encounter for wound care (Acute) Painless rectal bleeding (Acute) Leg wound, right (Acute) Head injury due to trauma (Acute) Fall (Acute) Opioid abuse with withdrawal (Acute) Laceration of scalp (Acute) H/O Angelique thyroiditis (Acute) Hypertension (Acute) Encounter for ostomy care education (Acute) Influenza-like symptoms (Acute) Abdominal pain (Acute) Unable to care for self (Acute) Acute dehydration (Acute) Colostomy malfunction (Acute) Encounter for long-term (current) use of medications (Chronic) Unintentional weight loss (Chronic) Stress at home (Chronic) PTSD (post-traumatic stress disorder) (Chronic) Laceration without foreign body of right ear, initial encounter (Chronic) Osteoarthritis (Chronic) Thyroid disorder (Chronic) Urine incontinence (Chronic) Bronchitis (Chronic) Asthma (Chronic) Fainting (Chronic) Dizziness (Chronic) Heart attack (Chronic) Shortness of breath (Chronic) Chest pain (Chronic) Headache (Chronic) Lupus (Chronic) History of hepatitis C (Chronic) Tobacco abuse (Chronic) Hypertension (Chronic) Neck pain, chronic (Chronic) Failure to gain weight in adult (Chronic) Actinic keratosis (Chronic) DDD (degenerative disc disease), cervical (Chronic) Vitamin D deficiency (Chronic) Angelique's thyroiditis (Chronic) Raynauds phenomenon (Chronic) Rib pain on right side (Chronic) Arthritis (Chronic) Elevated troponin (Acute) Hypothyroidism (Acute) Hypertensive urgency (Acute) Urinary tract infection (Acute) Myxedema (Acute) Medical History (Updated 03/04/22 @ 11:39 by Phil Summers MD) Actinic keratosis Arthritis Asthma Bronchitis Chest pain DDD (degenerative disc disease), cervical Dizziness Elevated troponin Encounter for long-term (current) use of medications Failure to gain weight in adult Fainting Gout Angelique's thyroiditis Headache Heart attack History of hepatitis C Hypertension Hypertensive urgency Hypothyroidism Laceration without foreign body of right ear, initial encounter Lupus Myxedema Neck pain, chronic Osteoarthritis Peptic ulcer Poor sleep PTSD (post-traumatic stress disorder) Raynauds phenomenon Rib pain on right side Shortness of breath Stress at home Thyroid disorder Tobacco abuse Unintentional weight loss Urinary tract infection Urine incontinence Vitamin D deficiency Surgical History History of eye surgery (~1960) Family History Mother , age 73 cancer and heart failure Glaucoma Thyroid disease Kidney disease Hypertension Heart disease Diabetes Asthma Arthritis Father Glaucoma Cancer Thyroid disease Hypertension Diabetes Arthritis Grandmother Cancer Maternal Thyroid disease Maternal Hypertension Maternal Heart disease Maternal Diabetes Maternal Arthritis Maternal Stroke Paternal Grandfather Cancer Maternal Arthritis Maternal Stroke Paternal Brother Heroin addiction Other Family history of drug abuse Family history of mental disorder Social History (Updated 12/21/18 @ 11:23 by ANDREW Nava) household members: significant other housing: apartment marital status: leisure activities: hunting and fishing physical activity: walking duration: other details: 4-5 times a week smoking status: Current every day smoker alcohol intake frequency: does not drink substance use type: does not use seatbelt use: sometimes MEDS/ALLERGIES Home Medications and Allergies Home Medications Medication Instructions Recorded Confirmed Type albuterol sulfate 90 mcg/actuation 2 puff inhalation .Q4-6H 03/03/17 12/21/18 History aerosol inhaler (ProAir HFA) lisinopril 40 mg tablet 40 mg PO QDAY 03/03/17 12/21/18 History verapamil 80 mg tablet 80 mg PO TID 03/03/17 12/21/18 History gabapentin 100 mg capsule 100 mg PO TID 10/05/18 12/21/18 History food supplemt, lactose-reduced 1 each PO QDAY #7,110 mL 12/10/18 12/21/18 Rx levothyroxine 200 mcg tablet 200 mcg PO QDAY 12/21/18 12/21/18 History (Synthroid) levothyroxine 25 mcg tablet 25 mcg PO QDAY 12/21/18 12/21/18 History (Synthroid) oxycodone-acetaminophen 10 mg-325 See Rx Instructions PO Q6H PRN 03/21/19 Rx mg tablet (Percocet) pain #60 tabs apixaban 5 mg (74 tabs) tablets in 5 mg PO ONCE #74 tabs 03/14/21 Rx a dose pack (Eliquis DVT-PE Treat 30D Start) hydrocodone 5 mg-acetaminophen 325 1 tab PO Q8H PRN pain #12 tabs 03/14/21 Rx mg tablet apixaban 5 mg tablet (Eliquis) 5 mg PO BID #60 tabs 04/28/21 Rx clindamycin HCl 300 mg capsule 600 mg PO TID #14 caps 04/28/21 Rx lisinopril 40 mg tablet 40 mg PO QDAY #30 tabs 06/12/21 Rx Allergies Allergy/AdvReac Type Severity Reaction Status Date / Time codeine Allergy Unknown Verified 02/02/22 12:53 prochlorperazine Allergy Unknown Verified 02/02/22 12:53 [From Compazine] pseudoephedrine Allergy Unknown Verified 02/02/22 12:53 [From Sudafed] Physical Examination Vital Signs Vital signs: Temp Pulse Resp BP Pulse Ox O2 Del Method 99.6 F H 75 16 222/133 95 03/04/22 11:01 03/04/22 11:16 03/04/22 11:16 03/04/22 11:01 03/04/22 11:16 03/04/22 09:16 General physical appearance General physical exam: other (somnolent, not verbally responsive ) Eyes Eye exam: other ENT ENT exam: other (normal facial appearance ) Head Head exam IM: Present atraumatic, normal inspection and normocephalic Neck Neck exam: trachea midline and other (soft and non tender) Cardiovascular Cardiovascular exam IM: Present RRR Respiratory Respiratory exam: other (normal appearing effort without distress ) Abdomen Abdomen: Present soft (belly is soft, non distended, and non tender. The ostomy appears congested with some prolapse that is not readily reducible - application of sugar with time and gentle pressure has resulted in markedly improved color and some reduction ) Neurologic Neurologic: Present other (non conversant, somnolent, moving all extremities ) Psychiatric Psychiatric: Absent oriented to time, oriented to person or oriented to place Results Labs Result diagrams: 03/04/22 01:40 Labs: Abnormal lab results 03/04/22 03/04/22 03/04/22 Range/Units 01:40 01:40 01:40 RDW 14.9 H (11.5-14.5) % Immature Gran % (Auto) 0.8 H (0.0-0.5) % Immature Gran # 0.08 H (0.00-0.05) K/mcl POC VBG pH (7.32-7.42) POC VBG pCO2 at Temp (41-51) POC VBG pO2 (25-40) POC VBG HCO3 (24-28) POC VBG Total CO2 (25-29) POC Venous O2 Sat (40-70) POC VBG Base Excess (-2-2) POC BUN (6-20) POC Creatinine (0.6-1.2) POC WB Ioniz Calcium (1.16-1.32) AST 41 H (<32) U/L Total Creatine Kinase (24-170) U/L CK-MB (CK-2) (<3.7) ng/mL Globulin 4.6 H (2.2-3.7) gm/dL Amylase 149 H (28-100) U/L Lipase 61 H (7-60) U/L Procalcitonin 0.11 H (<0.10) ng/mL 03/04/22 03/04/22 03/04/22 Range/Units 01:55 08:29 08:30 RDW (11.5-14.5) % Immature Gran % (Auto) (0.0-0.5) % Immature Gran # (0.00-0.05) K/mcl POC VBG pH 7.54 H (7.32-7.42) POC VBG pCO2 at Temp 23.0 L (41-51) POC VBG pO2 73 H (25-40) POC VBG HCO3 19.6 L (24-28) POC VBG Total CO2 20.0 L (25-29) POC Venous O2 Sat 97.0 H (40-70) POC VBG Base Excess -3.0 L (-2-2) POC BUN 26 H (6-20) POC Creatinine 1.8 H (0.6-1.2) POC WB Ioniz Calcium 1.13 L (1.16-1.32) AST (<32) U/L Total Creatine Kinase 539 H (24-170) U/L CK-MB (CK-2) 17.4 H (<3.7) ng/mL Globulin (2.2-3.7) gm/dL Amylase (28-100) U/L Lipase (7-60) U/L Procalcitonin (<0.10) ng/mL 03/04/22 Range/Units 08:34 RDW (11.5-14.5) % Immature Gran % (Auto) (0.0-0.5) % Immature Gran # (0.00-0.05) K/mcl POC VBG pH (7.32-7.42) POC VBG pCO2 at Temp 38.4 L (41-51) POC VBG pO2 (25-40) POC VBG HCO3 22.3 L (24-28) POC VBG Total CO2 23.0 L (25-29) POC Venous O2 Sat (40-70) POC VBG Base Excess -3.0 L (-2-2) POC BUN (6-20) POC Creatinine (0.6-1.2) POC WB Ioniz Calcium (1.16-1.32) AST (<32) U/L Total Creatine Kinase (24-170) U/L CK-MB (CK-2) (<3.7) ng/mL Globulin (2.2-3.7) gm/dL Amylase (28-100) U/L Lipase (7-60) U/L Procalcitonin (<0.10) ng/mL Diabetes panel 03/04/22 Range/Units 01:40 AST 41 H (<32) U/L ALT 21 (<40) U/L Alkaline Phosphatase 87 (39-117) U/L Total Protein 8.3 (5.9-8.4) gm/dL Albumin 3.7 (3.2-5.2) gm/dL Calcium panel 03/04/22 Range/Units 01:40 Albumin 3.7 (3.2-5.2) gm/dL Adrenal panel 03/04/22 Range/Units 01:40 Total Bilirubin 0.3 (0.1-1.0) mg/dL AST 41 H (<32) U/L ALT 21 (<40) U/L Alkaline Phosphatase 87 (39-117) U/L Total Protein 8.3 (5.9-8.4) gm/dL Albumin 3.7 (3.2-5.2) gm/dL All other labs normal. A/P Assessment and plan (1) Prolapse of stoma: Assessment and plan: Stomal Prolapse of RUQ Ostomy This appears improved with conservative measures and doesn't seem to be obstructed or ischemically threatened and I don't recommend any emergent operative intervention at this time The bleeding she currently has may just be secondary to stomal congestion while on Eliquis but this will need to be evaluated over time and it's possible GI consultation will be needed which is not currently available here. Oven Dauber her innumerable medical issues and currently uncontrolled hypertension, she likely merits admission and ongoing observation. I don't recommend any current operative intervention for the ostomy as it appears to be improving and likely has some chronic prolapse associated with it. She likely has follow up scheduled with her managing Surgical Team and it would be reasonable to transfer her to a facility where her team is more readily available but will defer disposition to our managing ER and Hospitalist Providers Status: Acute Time Spent With Patient Time: Total time spent is greater than 50% in coordination of care (as documented) at patient's floor/unit and/or counseling patient:
[2022-03-04 11:37] LABS: Amphetamine Screen,Urine Suspect positive; Barbiturate Screen,Urine None detected; Benzodiazepines Screen,Urine None detected; Cannabinoid Screen,Urine Suspect Positive; Cocaine Screen,Urine None detected; Opiate Screen,Urine None detected; Oxycodone, Urine Screen None detected; Phencyclidine Screen,Urine None detected
[2022-03-04] MEDS ORDERED: hydrALAZINE 20 MG/ML VIAL IV ONE (11:49)
[2022-03-04 12:05] LABS: Free T4 (Free Thyroxine) < 0.10 ng/dL (0.93-1.70)
[2022-03-04 12:44] LABS: Thyroid Stimulating Hormone > 100 uIU/mL (0.27-5.01)
[2022-03-04 13:35] LABS: Appearance,Urine CLEAR (Clear); Bacteria,Urine MANY /hpf (0); Bilirubin,Urine NEGATIVE (Negative); Color,Urine LT. YELLOW; Culture Indicated,Urine yes; Glucose,Urine (UA) NEGATIVE (Negative); Ketones,Urine NEGATIVE (Negative); Leukocyte Esterase,Urine NEGATIVE /uL (Negative); Mucus,Urine FEW /hpf; Nitrate,Urine Positive (Negative); PH,Urine 5.5 (5.0-9.0); Protein,Urine 100 mg/dL (Negative); Specific Gravity,Urine 1.025 (1.000-1.035); Urine Blood SMALL ery/mcL (Negative); Urine Hyaline Cast 3 /lph (0-2); Urine RBC 2 /hpf (0-3); Urine Squamous Epithelial Cell 3 /hpf (0-4); Urine WBC 11 /hpf (0-4); Urobilinogen,Urine Normal
--- NOTE | 2022-03-04 16:11 | EKG ---
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 Measurements Intervals [place] Rate: 82 P: 29 CA: 149 QRS: -12 QRSD: 89 T: 12 QT: 485 QTc: 567 Interpretive Statements Sinus rhythm Consider left ventricular hypertrophy Prolonged QT interval Electronically Signed On 03-04-2022 16:11:30 PST by Dave Burton M.D. /[id number]
--- NOTE | 2022-03-04 16:13 | Internal Med History&Physical ---
HPI History of Present Illness Patient information: Note initiated : 03/04/22 at 4:05 pm Service Date, if different from initiated Date: [] Patient: Jennifer Alvarado a 67 y/o F admitted on for ABD PAIN. Chief Complaint: [abdominal pain] Chief complaint: abdominal pain. History of present illness: Ms. Alvarado is a 67 year old F status post ostomy bag placement, history of DVT on Eliquis, hypothyroidism, methamphetamine abuse, presenting with abdominal pain. The following history is severely limited by patient's clinical situations. ED doctor performed CT abdomen pelvis showing signs of ileus. He called outside hospital requesting consult with the surgeon who placed the ostomy bag but they stated this is not his surgical case and refused to take the patient. An NG tube was attempted to be placed but x-ray showing it was in the wrong position so it was subsequently withdrawal. Dr. Browne recommended do not try to reinsert insert an NG tube. Ostomy bag placement has blood-tinged. Patient's found to be tested positive for methamphetamine as well as cannabis from her urine drug screen. She also have elevated blood pressure initially with a systolic blood pressure above 200 and subsequently resolved after rounds of IV hydralazine given. Patient could not be discharged from ED to home due to delirium secondary to substance abuse. Admission request is called for observations until patient's mentation is back to the baseline. Review of Systems ROS unobtainable: due to mental status PFSH PFSH All Active Problems (Updated 03/04/22 @ 16:09 by Kahlil Weiss MD) Acute delirium (Acute) Methamphetamine use (Acute) Marijuana use (Acute) Prolapse of stoma (Acute) Hypertensive urgency (Acute) Ileus (Acute) Gastrointestinal bleeding, upper (Acute) Acute alteration in mental status (Acute) Ileus (Acute) DVT (deep venous thrombosis) (Acute) Encounter for wound care (Acute) Painless rectal bleeding (Acute) Leg wound, right (Acute) Head injury due to trauma (Acute) Fall (Acute) Opioid abuse with withdrawal (Acute) Laceration of scalp (Acute) H/O Angelique thyroiditis (Acute) Hypertension (Acute) Encounter for ostomy care education (Acute) Influenza-like symptoms (Acute) Abdominal pain (Acute) Unable to care for self (Acute) Acute dehydration (Acute) Colostomy malfunction (Acute) Encounter for long-term (current) use of medications (Chronic) Unintentional weight loss (Chronic) Stress at home (Chronic) PTSD (post-traumatic stress disorder) (Chronic) Laceration without foreign body of right ear, initial encounter (Chronic) Osteoarthritis (Chronic) Thyroid disorder (Chronic) Urine incontinence (Chronic) Bronchitis (Chronic) Asthma (Chronic) Fainting (Chronic) Dizziness (Chronic) Heart attack (Chronic) Shortness of breath (Chronic) Chest pain (Chronic) Headache (Chronic) Lupus (Chronic) History of hepatitis C (Chronic) Tobacco abuse (Chronic) Hypertension (Chronic) Neck pain, chronic (Chronic) Failure to gain weight in adult (Chronic) Actinic keratosis (Chronic) DDD (degenerative disc disease), cervical (Chronic) Vitamin D deficiency (Chronic) Angelique's thyroiditis (Chronic) Raynauds phenomenon (Chronic) Rib pain on right side (Chronic) Arthritis (Chronic) Elevated troponin (Acute) Hypothyroidism (Acute) Hypertensive urgency (Acute) Urinary tract infection (Acute) Myxedema (Acute) Medical History (Updated 03/04/22 @ 16:09 by Kahlil Weiss MD) Actinic keratosis Arthritis Asthma Bronchitis Chest pain DDD (degenerative disc disease), cervical Dizziness Elevated troponin Encounter for long-term (current) use of medications Failure to gain weight in adult Fainting Gout Angelique's thyroiditis Headache Heart attack History of hepatitis C Hypertension Hypertensive urgency Hypothyroidism Laceration without foreign body of right ear, initial encounter Lupus Myxedema Neck pain, chronic Osteoarthritis Peptic ulcer Poor sleep PTSD (post-traumatic stress disorder) Raynauds phenomenon Rib pain on right side Shortness of breath Stress at home Thyroid disorder Tobacco abuse Unintentional weight loss Urinary tract infection Urine incontinence Vitamin D deficiency Surgical History History of eye surgery (~1960) Family History Mother , age 73 cancer and heart failure Glaucoma Thyroid disease Kidney disease Hypertension Heart disease Diabetes Asthma Arthritis Father Glaucoma Cancer Thyroid disease Hypertension Diabetes Arthritis Grandmother Cancer Maternal Thyroid disease Maternal Hypertension Maternal Heart disease Maternal Diabetes Maternal Arthritis Maternal Stroke Paternal Grandfather Cancer Maternal Arthritis Maternal Stroke Paternal Brother Heroin addiction Other Family history of drug abuse Family history of mental disorder Social History (Updated 12/21/18 @ 11:23 by ANDREW Nava) household members: significant other housing: apartment marital status: leisure activities: hunting and fishing physical activity: walking duration: other details: 4-5 times a week smoking status: Current every day smoker alcohol intake frequency: does not drink substance use type: does not use seatbelt use: sometimes MEDS/ALLERGIES Home Medications and Allergies Home Medications Medication Instructions Recorded Confirmed Type albuterol sulfate 90 mcg/actuation 2 puff inhalation .Q4-6H 03/03/17 12/21/18 History aerosol inhaler (ProAir HFA) lisinopril 40 mg tablet 40 mg PO QDAY 03/03/17 12/21/18 History verapamil 80 mg tablet 80 mg PO TID 03/03/17 12/21/18 History gabapentin 100 mg capsule 100 mg PO TID 10/05/18 12/21/18 History food supplemt, lactose-reduced 1 each PO QDAY #7,110 mL 12/10/18 12/21/18 Rx levothyroxine 200 mcg tablet 200 mcg PO QDAY 12/21/18 12/21/18 History (Synthroid) levothyroxine 25 mcg tablet 25 mcg PO QDAY 12/21/18 12/21/18 History (Synthroid) oxycodone-acetaminophen 10 mg-325 See Rx Instructions PO Q6H PRN 03/21/19 Rx mg tablet (Percocet) pain #60 tabs apixaban 5 mg (74 tabs) tablets in 5 mg PO ONCE #74 tabs 03/14/21 Rx a dose pack (Eliquis DVT-PE Treat 30D Start) hydrocodone 5 mg-acetaminophen 325 1 tab PO Q8H PRN pain #12 tabs 03/14/21 Rx mg tablet apixaban 5 mg tablet (Eliquis) 5 mg PO BID #60 tabs 04/28/21 Rx clindamycin HCl 300 mg capsule 600 mg PO TID #14 caps 04/28/21 Rx lisinopril 40 mg tablet 40 mg PO QDAY #30 tabs 06/12/21 Rx Allergies Allergy/AdvReac Type Severity Reaction Status Date / Time codeine Allergy Unknown Verified 02/02/22 12:53 prochlorperazine Allergy Unknown Verified 02/02/22 12:53 [From Compazine] pseudoephedrine Allergy Unknown Verified 02/02/22 12:53 [From Sudafed] EXAM Constitutional Vitals: Temp Pulse Resp BP Pulse Ox O2 Del Method 37.6 C H 87 24 H 152/109 97 03/04/22 11:01 03/04/22 15:24 03/04/22 15:24 03/04/22 15:17 03/04/22 15:24 03/04/22 09:16 General appearance: no acute distress; no cooperative Head Head exam: Present atraumatic and normocephalic Eye Eye exam: Present EOMI and PERRL ENT ENT exam: Present mucous membranes moist, normal exam and normal external ear exam Neck Neck exam: Present normal inspection; Absent lymphadenopathy, tenderness or thyromegaly Respiratory Respiratory exam: Absent accessory muscle use, respiratory distress or wheezes Cardiovascular Cardiovascular exam: Present normal rate and rhythm; Absent JVD GI/Abdominal GI/Abdominal exam: Present normal bowel sounds, soft, guarding and tenderness; Absent organomegaly Additional comments: ostomy bag Extremities Exam Extremities exam: Present full ROM, normal capillary refill and normal inspection; Absent tenderness Neurological Exam Neurological exam: Present altered and CN II-XII intact; Absent alert, motor sensory deficit or oriented X3 Psychiatric Psychiatric exam: Present normal affect and normal mood; Absent anxious or depressed Skin Skin exam: Present dry and intact DATA Data Completed and Pending Labs: Labs from last 24 hours 03/04/22 03/04/22 03/04/22 09:45 09:45 08:34 WBC RBC Hgb Hct POC Hct MCV MCH MCHC RDW Plt Count MPV Immature Gran % (Auto) Neut % (Auto) Lymph % (Auto) [place] % (Auto) Eos % (Auto) Baso % (Auto) Lymph # (Auto) [place] # (Auto) Eos # (Auto) Baso # (Auto) Immature Gran # Absolute Neutrophils POC VBG pH 7.37 POC VBG pCO2 at Temp 38.4 L POC VBG pO2 36 POC VBG HCO3 22.3 L POC VBG Total CO2 23.0 L POC Venous O2 Sat 68.0 POC VBG Base Excess -3.0 L VBG Lactic Acid 1.4 POC Sodium POC Potassium POC Chloride POC Total CO2 POC BUN POC Creatinine POC Glucose POC WB Ioniz Calcium Total Bilirubin Direct Bilirubin AST ALT Alkaline Phosphatase Total Creatine Kinase CK-MB (CK-2) Total Protein Albumin Globulin Amylase Lipase Procalcitonin TSH Free T4 Urine Color Lt. yellow Urine Appearance Clear Urine pH 5.5 Ur Specific [place] 1.025 Urine Protein 100 A Urine Glucose (UA) Negative Urine Ketones Negative Urine Occult Blood Small A Urine Nitrate Positive A Urine Bilirubin Negative Urine Urobilinogen Normal Ur Leukocyte Esterase Negative Urine RBC 2 Urine WBC 11 H Ur Squamous Epith Cells 3 Urine Bacteria Many A Hyaline Casts 3 H Urine Mucus Few A Ur Culture Indicated? yes Urine Opiates Screen None detected Ur Opiates Confirm TNP Ur Oxycodone Screen None detected U Oxycod/Oxymor Confirm TNP Urine Methadone Screen None detected Ur Methadone Confirm TNP Ur Barbiturates Screen None detected Ur Barbiturate Confirm TNP Ur Phencyclidine Scrn None detected Urine PCP Confirm TNP Ur Amphetamines Screen Suspect positive A U Amphetamines Confirm Pending U Benzodiazepines Scrn None detected Ur Benzodiazepine, Qnt TNP Urine Cocaine Screen None detected Urine Cocaine Confirm TNP U Cannabinoids Confirm Pending U Marijuana (THC) Screen Suspect positive A 03/04/22 03/04/22 03/04/22 08:30 08:29 08:00 WBC RBC Hgb Hct POC Hct MCV MCH MCHC RDW Plt Count MPV Immature Gran % (Auto) Neut % (Auto) Lymph % (Auto) [place] % (Auto) Eos % (Auto) Baso % (Auto) Lymph # (Auto) [place] # (Auto) Eos # (Auto) Baso # (Auto) Immature Gran # Absolute Neutrophils POC VBG pH 7.54 H POC VBG pCO2 at Temp 23.0 L POC VBG pO2 73 H POC VBG HCO3 19.6 L POC VBG Total CO2 20.0 L POC Venous O2 Sat 97.0 H POC VBG Base Excess -3.0 L VBG Lactic Acid 1.1 POC Sodium POC Potassium POC Chloride POC Total CO2 POC BUN POC Creatinine POC Glucose POC WB Ioniz Calcium Total Bilirubin Direct Bilirubin AST ALT Alkaline Phosphatase Total Creatine Kinase 539 H CK-MB (CK-2) 17.4 H Total Protein Albumin Globulin Amylase Lipase Procalcitonin TSH > 100 H Free T4 < 0.10 L Urine Color Urine Appearance Urine pH Ur Specific [place] Urine Protein Urine Glucose (UA) Urine Ketones Urine Occult Blood Urine Nitrate Urine Bilirubin Urine Urobilinogen Ur Leukocyte Esterase Urine RBC Urine WBC Ur Squamous Epith Cells Urine Bacteria Hyaline Casts Urine Mucus Ur Culture Indicated? Urine Opiates Screen Ur Opiates Confirm Ur Oxycodone Screen U Oxycod/Oxymor Confirm Urine Methadone Screen Ur Methadone Confirm Ur Barbiturates Screen Ur Barbiturate Confirm Ur Phencyclidine Scrn Urine PCP Confirm Ur Amphetamines Screen U Amphetamines Confirm U Benzodiazepines Scrn Ur Benzodiazepine, Qnt Urine Cocaine Screen Urine Cocaine Confirm U Cannabinoids Confirm U Marijuana (THC) Screen 03/04/22 03/04/22 03/04/22 01:55 01:40 01:40 WBC RBC Hgb Hct POC Hct 44.0 MCV MCH MCHC RDW Plt Count MPV Immature Gran % (Auto) Neut % (Auto) Lymph % (Auto) [place] % (Auto) Eos % (Auto) Baso % (Auto) Lymph # (Auto) [place] # (Auto) Eos # (Auto) Baso # (Auto) Immature Gran # Absolute Neutrophils POC VBG pH POC VBG pCO2 at Temp POC VBG pO2 POC VBG HCO3 POC VBG Total CO2 POC Venous O2 Sat POC VBG Base Excess VBG Lactic Acid POC Sodium 139 POC Potassium 4.3 POC Chloride 107 POC Total CO2 23.0 POC BUN 26 H POC Creatinine 1.8 H POC Glucose 80 POC WB Ioniz Calcium 1.13 L Total Bilirubin 0.3 Direct Bilirubin < 0.2 AST 41 H ALT 21 Alkaline Phosphatase 87 Total Creatine Kinase CK-MB (CK-2) Total Protein 8.3 Albumin 3.7 Globulin 4.6 H Amylase 149 H Lipase 61 H Procalcitonin 0.11 H TSH Free T4 Urine Color Urine Appearance Urine pH Ur Specific [place] Urine Protein Urine Glucose (UA) Urine Ketones Urine Occult Blood Urine Nitrate Urine Bilirubin Urine Urobilinogen Ur Leukocyte Esterase Urine RBC Urine WBC Ur Squamous Epith Cells Urine Bacteria Hyaline Casts Urine Mucus Ur Culture Indicated? Urine Opiates Screen Ur Opiates Confirm Ur Oxycodone Screen U Oxycod/Oxymor Confirm Urine Methadone Screen Ur Methadone Confirm Ur Barbiturates Screen Ur Barbiturate Confirm Ur Phencyclidine Scrn Urine PCP Confirm Ur Amphetamines Screen U Amphetamines Confirm U Benzodiazepines Scrn Ur Benzodiazepine, Qnt Urine Cocaine Screen Urine Cocaine Confirm U Cannabinoids Confirm U Marijuana (THC) Screen 03/04/22 03/04/22 01:40 01:31 WBC 10.3 RBC 4.86 Hgb 14.4 Hct 44.2 POC Hct MCV 90.9 MCH 29.6 MCHC 32.6 RDW 14.9 H Plt Count 280 MPV 11.3 Immature Gran % (Auto) 0.8 H Neut % (Auto) 65.3 Lymph % (Auto) 26.6 [place] % (Auto) 6.0 Eos % (Auto) 0.7 Baso % (Auto) 0.6 Lymph # (Auto) 2.73 [place] # (Auto) 0.62 Eos # (Auto) 0.07 Baso # (Auto) 0.06 Immature Gran # 0.08 H Absolute Neutrophils 6.72 POC VBG pH 7.40 POC VBG pCO2 at Temp 42.6 POC VBG pO2 28 POC VBG HCO3 26.4 POC VBG Total CO2 28.0 POC Venous O2 Sat 52.0 POC VBG Base Excess 2.0 VBG Lactic Acid 1.0 POC Sodium POC Potassium POC Chloride POC Total CO2 POC BUN POC Creatinine POC Glucose POC WB Ioniz Calcium Total Bilirubin Direct Bilirubin AST ALT Alkaline Phosphatase Total Creatine Kinase CK-MB (CK-2) Total Protein Albumin Globulin Amylase Lipase Procalcitonin TSH Free T4 Urine Color Urine Appearance Urine pH Ur Specific [place] Urine Protein Urine Glucose (UA) Urine Ketones Urine Occult Blood Urine Nitrate Urine Bilirubin Urine Urobilinogen Ur Leukocyte Esterase Urine RBC Urine WBC Ur Squamous Epith Cells Urine Bacteria Hyaline Casts Urine Mucus Ur Culture Indicated? Urine Opiates Screen Ur Opiates Confirm Ur Oxycodone Screen U Oxycod/Oxymor Confirm Urine Methadone Screen Ur Methadone Confirm Ur Barbiturates Screen Ur Barbiturate Confirm Ur Phencyclidine Scrn Urine PCP Confirm Ur Amphetamines Screen U Amphetamines Confirm U Benzodiazepines Scrn Ur Benzodiazepine, Qnt Urine Cocaine Screen Urine Cocaine Confirm U Cannabinoids Confirm U Marijuana (THC) Screen A/P Assessment and plan (1) Methamphetamine use: Status: Acute (2) Marijuana use: Status: Acute (3) Acute delirium: Status: Acute (4) Ileus: Status: Acute (5) DVT (deep venous thrombosis): Status: Acute (6) Hypothyroidism: Status: Acute Qualifiers: Hypothyroidism type: unspecified Qualified Code(s): E03.9 - Hypothyroidism, unspecified (7) Hypertensive urgency: Status: Acute Narrative A/P Narrative: Assessment and Plans: 1. Mild ileus: Observation med surg Consulting Dr. Summers for surgical recommendations. recs appreciated NPO with IV fluid Serial abdominal imaging KUB to document resolution of ileus Zofran Morphine 2. Acute delirium 2/2 methamphetamine and cannabis abuse: Continue to monitor Haldol PRN psychosis agitation 3. Hypertensive urgency: Likely 2/2 methamphetamine abuse Resume oral antihypertensives from home Hydralazine IV PRN 4. Hypothyroidism: Continue thyroid replacement 5. h/o DVT: Holding Eliquis for now due to blood tingle found in ostomy output GI ppx: not currently indicated DVT ppx: SCDs; Holding Eliquis for now due to blood tingle found in ostomy output Code status: Full Prognosis: guarded Disposition: Observation med surg Time Spent With Patient Time: Total time spent is greater than 50% in coordination of care (as documented) at patient's floor/unit and/or counseling patient: Initial: Total time with patient: 55 - 74 minutes
[2022-03-04] MEDS ORDERED: IPRATROPIUM/ALBUTEROL 3 ML AMPUL.NEB NEB PRN (17:09)
[2022-03-04] MEDS ORDERED: traZODone HCL 50 MG TABLET PO PRN (17:09)
[2022-03-04] MEDS ORDERED: HALOPERIDOL LACTATE 5 MG/ML VIAL IV PRN (17:09)
[2022-03-04] MEDS ORDERED: ONDANSETRON 4 MG/2 ML VIAL IV PRN (17:09)
[2022-03-04] MEDS: DEXTROSE 5%-LR 1,000 ML IV SCH (17:34)
[2022-03-04] MEDS: hydrALAZINE 20 MG/ML VIAL IV PRN (17:39)
[2022-03-04] MEDS: 0.9 % SODIUM CHLORIDE 10 ML SYRINGE IV SCH (23:51)
[2022-03-05] MEDS: hydrALAZINE 20 MG/ML VIAL IV PRN ×2 (02:04→08:06)
[2022-03-05] MEDS: 0.9 % SODIUM CHLORIDE 10 ML SYRINGE IV SCH ×3 (05:37→21:20)
[2022-03-05] MEDS: DEXTROSE 5%-LR 1,000 ML IV SCH ×5 (05:37→15:19)
[2022-03-05 07:44] LABS: Basophils # (Auto) 0.04 K/mcL (0.00-0.30); Basophils % (Auto) 0.3 % (0.0-2.0); Eosinophils # (Auto) 0.01 K/mcL (0.00-0.70); Eosinophils % (Auto) 0.1 % (0.0-7.0); Hematocrit 42.9 % (34.1-44.9); Hemoglobin 13.9 g/dL (11.2-15.7); Lymphocytes # (Auto) 2.53 K/mcL (1.50-4.80); Lymphocytes % (Auto) 17.3 % (15.5-49.0); Mean Cell Volume 88.8 fL (80.0-100.0); Mean Corpuscular HGB Conc 32.4 g/dL (31.0-36.0); Mean Platelet Volume 10.8 fL (8.8-12.5); Monocytes % (Auto) 5.5 % (1.0-12.0); Neutrophils % (Auto) 76.3 % (38.0-78.0); Platelet Count 368 K/mcL (140-440); RBC 4.83 M/mcL (3.59-5.38); Red Cell Distribution Width 14.9 % (11.5-14.5); WBC 14.7 K/mcL (4.5-11.0)
[2022-03-05 08:18] LABS: Blood Urea Nitrogen 25 mg/dL (8-23); Calcium 8.8 mg/dL (8.6-10.4); Carbon Dioxide 21 mmol/L (22-30); Chloride 105 mmol/L (96-108); Glomerular Filtration Rate 31; Glucose 116 mg/dL (70-105)
[2022-03-05] MEDS: ACETAMINOPHEN 325 MG TABLET PO PRN (10:29)
--- NOTE | 2022-03-05 10:54 | Internal Med Progress Note ---
SUBJECTIVE Subjective Patient information: Note initiated : 03/05/22 at 10:51 am Service Date, if different from initiated Date: [] Patient: Jennifer Alvarado 67 y/o F admitted on 03/04/22 for ABD PAIN. Chief Complaint: [] Interval history: Ms. Alvarado is a 67 year old F status post ostomy bag placement, history of DVT on Eliquis, hypothyroidism, methamphetamine abuse, presenting with abdominal pain. The following history is severely limited by patient's clinical situations. ED doctor performed CT abdomen pelvis showing signs of ileus. He called outside hospital requesting consult with the surgeon who placed the ostomy bag but they stated this is not his surgical case and refused to take the patient. An NG tube was attempted to be placed but x-ray showing it was in the wrong position so it was subsequently withdrawal. Dr. Browne recommended do not try to reinsert insert an NG tube. Ostomy bag placement has blood-tinged. Patient's found to be tested positive for methamphetamine as well as cannabis from her urine drug screen. She also have elevated blood pressure initially with a systolic blood pressure above 200 and subsequently resolved after rounds of IV hydralazine given. Patient could not be discharged from ED to home due to delirium secondary to substance abuse. Admission request is called for observations until patient's mentation is back to the baseline. 03/05: There was no major overnight events. Patient is complaining of 10 out of 10 diffuse, sharp, constant abdominal pain. She is complain of nausea but no vomi ting. She is stating that she is hungry. We will continue to provide narcotics and antiemetics for symptoms control. We will continue IV fluid infusion for now. We will check with general surgeon Dr. Summers regarding the timing to start feeding the patient. Constitutional Vitals: Vital Signs Temp Pulse Resp BP Pulse Ox O2 Del Method 36.8 C 92 H 22 159/117 97 03/05/22 08:00 03/05/22 08:00 03/05/22 08:00 03/05/22 08:00 03/05/22 08:00 03/05/22 08:00 Period Temp Pulse Resp BP Sys/Blanco Pulse Ox O2 Del Method O2 Flow Rate Last 24 Hr 36.4 C-37.6 C 67-101 14-30 127-222/92-143 95-99 Room Air-Room Air Intake and Output 03/04/22 03/05/22 03/05/22 19:59 03:59 11:59 Intake Total 1000 0 Output Total 1075 450 Balance -1075 1000 -450 Weight 59.103 kg Intake & Output: Intake & Output 03/04/22 03/05/22 03/05/22 19:59 03:59 11:59 Intake Total 1000 0 Output Total 1075 450 Balance -1075 1000 -450 Weight 59.103 kg Intake: IV 1000 Dextrose 5%-Lactated Ringers 1, 1000 000 ml @ 100 mls/hr IV .Q10H [facility] Rx#:[id number] Oral 0 Output: Urine Catheter Amount 800 250 Stool 275 200 Other: Urine Appearance Cloudy Uretheral ([place]rell[place]) Clear Clear Urine Color Yellow Uretheral (Orellana) Yellow Yellow General appearance: average body habitus, cooperative and no acute distress Head Head exam: Present atraumatic and normal inspection Eye Eye exam: Present normal appearance ENT ENT exam: Present mucous membranes moist, normal exam and normal external ear exam Neck Neck exam: Present normal inspection Respiratory Respiratory exam: Present normal respiratory exam Cardiovascular Cardiovascular exam: Present normal rate and rhythm GI/Abdominal GI/Abdominal exam: Present normal bowel sounds, soft and tenderness Additional comments: Ostomy bag in place Back Exam Back exam: Present normal inspection Neurological Exam Neurological exam: Present alert and oriented X3 Skin Skin exam: Present intact and warm OBJ DATA Labs CBC & Chem 7: 03/05/22 06:00 03/05/22 06:00 Labs: Abnormal Lab Results 03/05/22 03/05/22 03/04/22 06:00 06:00 09:45 WBC 14.7 H RDW 14.9 H Immature Gran % (Auto) Immature Gran # 0.08 H Absolute Neutrophils 11.19 H POC VBG pH POC VBG pCO2 at Temp POC VBG pO2 POC VBG HCO3 POC VBG Total CO2 POC Venous O2 Sat POC VBG Base Excess Carbon Dioxide 21 L POC BUN BUN 25 H Creatinine 1.7 H POC Creatinine Glucose 116 H POC WB Ioniz Calcium AST Total Creatine Kinase CK-MB (CK-2) Globulin Amylase Lipase Procalcitonin TSH Free T4 Urine Protein 100 A Urine Occult Blood Small A Urine Nitrate Positive A Urine WBC 11 H Urine Bacteria Many A Hyaline Casts 3 H Urine Mucus Few A Ur Amphetamines Screen U Marijuana (THC) Screen 03/04/22 03/04/22 03/04/22 09:45 08:34 08:30 WBC RDW Immature Gran % (Auto) Immature Gran # Absolute Neutrophils POC VBG pH POC VBG pCO2 at Temp 38.4 L POC VBG pO2 POC VBG HCO3 22.3 L POC VBG Total CO2 23.0 L POC Venous O2 Sat POC VBG Base Excess -3.0 L Carbon Dioxide POC BUN BUN Creatinine POC Creatinine Glucose POC WB Ioniz Calcium AST Total Creatine Kinase 539 H CK-MB (CK-2) 17.4 H Globulin Amylase Lipase Procalcitonin TSH Free T4 Urine Protein Urine Occult Blood Urine Nitrate Urine WBC Urine Bacteria Hyaline Casts Urine Mucus Ur Amphetamines Screen Suspect positive A U Marijuana (THC) Screen Suspect positive A 03/04/22 03/04/22 03/04/22 08:29 08:00 01:55 WBC RDW Immature Gran % (Auto) Immature Gran # Absolute Neutrophils POC VBG pH 7.54 H POC VBG pCO2 at Temp 23.0 L POC VBG pO2 73 H POC VBG HCO3 19.6 L POC VBG Total CO2 20.0 L POC Venous O2 Sat 97.0 H POC VBG Base Excess -3.0 L Carbon Dioxide POC BUN 26 H BUN Creatinine POC Creatinine 1.8 H Glucose POC WB Ioniz Calcium 1.13 L AST Total Creatine Kinase CK-MB (CK-2) Globulin Amylase Lipase Procalcitonin TSH > 100 H Free T4 < 0.10 L Urine Protein Urine Occult Blood Urine Nitrate Urine WBC Urine Bacteria Hyaline Casts Urine Mucus Ur Amphetamines Screen U Marijuana (THC) Screen 03/04/22 03/04/22 03/04/22 01:40 01:40 01:40 WBC RDW 14.9 H Immature Gran % (Auto) 0.8 H Immature Gran # 0.08 H Absolute Neutrophils POC VBG pH POC VBG pCO2 at Temp POC VBG pO2 POC VBG HCO3 POC VBG Total CO2 POC Venous O2 Sat POC VBG Base Excess Carbon Dioxide POC BUN BUN Creatinine POC Creatinine Glucose POC WB Ioniz Calcium AST 41 H Total Creatine Kinase CK-MB (CK-2) Globulin 4.6 H Amylase 149 H Lipase 61 H Procalcitonin 0.11 H TSH Free T4 Urine Protein Urine Occult Blood Urine Nitrate Urine WBC Urine Bacteria Hyaline Casts Urine Mucus Ur Amphetamines Screen U Marijuana (THC) Screen Meds: Medications Acetaminophen (Acetaminophen 325 Mg Tablet) 650 mg PO Q6HP PRN; Protocol PRN Reason: Per Pain Protocol/Fever > 101 Last Admin: 03/05/22 10:29 Dose: 650 mg Albuterol/Ipratropium (Ipratropium/Albuterol 3 Ml Ampul.Neb) 3 ml NEB Q4HRT PRN PRN Reason: Wheezing Haloperidol Lactate (Haloperidol Lactate 5 Mg/Ml Vial) 2 mg IV Q4HP PRN PRN Reason: Agitation Hydralazine HCl (Hydralazine 20 Mg/Ml Vial) 10 mg IV Q4-6HP PRN PRN Reason: Hypertension Last Admin: 03/05/22 08:06 Dose: 10 mg Dextrose/Lactated Ringer's (Dextrose 5%-Lactated Ringers) 1,000 mls @ 100 mls/hr IV .Q10H [facility] Last Admin: 03/05/22 06:12 Dose: 100 mls/hr Morphine Sulfate (Morphine 4 Mg/Ml Vial) 4 mg IV Q4HP PRN; Protocol PRN Reason: Per Pain Protocol Ondansetron HCl (Ondansetron 4 Mg/2 Ml Vial) 4 mg IV Q6HP PRN PRN Reason: Nausea And Vomiting Sodium Chloride (0.9 % Sodium Chloride 10 Ml Syringe) 10 ml IV Q8 [facility] Last Admin: 03/05/22 05:37 Dose: Not Given Trazodone HCl (Trazodone Hcl 50 Mg Tablet) 25 mg PO HSP PRN PRN Reason: Insomnia A/P Assessment and plan (1) Methamphetamine use: Status: Acute (2) Marijuana use: Status: Acute (3) Acute delirium: Status: Acute (4) Ileus: Status: Acute (5) DVT (deep venous thrombosis): Status: Acute (6) Hypothyroidism: Status: Acute Qualifiers: Hypothyroidism type: unspecified Qualified Code(s): E03.9 - Hypothyroidism, unspecified (7) Hypertensive urgency: Status: Acute Narrative A/P Narrative: Assessment and Plans: 1. Mild ileus: Observation med surg Consulting Dr. Summers for surgical recommendations. recs appreciated NPO with IV fluid Serial abdominal imaging KUB to document resolution of ileus Zofran Morphine 2. Acute delirium 2/2 methamphetamine and cannabis abuse: Continue to monitor Haldol PRN psychosis agitation 3. Hypertensive urgency: Likely 2/2 methamphetamine abuse Resume oral antihypertensives from home Hydralazine IV PRN 4. Hypothyroidism: Continue thyroid replacement 5. h/o DVT: Holding Eliquis for now due to blood tingle found in ostomy output GI ppx: not currently indicated DVT ppx: SCDs; Holding Eliquis for now due to blood tingle found in ostomy output Code status: Full Prognosis: guarded Disposition: Observation med surg Time Spent With Patient Time: Total time spent is greater than 50% in coordination of care (as documented) at patient's floor/unit and/or counseling patient: Subsequent: Total time with patient: 35 - 49 minutes
--- NOTE | 2022-03-05 13:13 | Internal Med Progress Note ---
SUBJECTIVE Subjective Patient information: Note initiated : 03/05/22 at 1:09 pm Service Date, if different from initiated Date: [] Patient: Jennifer Alvarado a 67 y/o F admitted on 03/04/22 for ABD PAIN. Chief Complaint: [] Interval history: Ms. Alvarado is a 67 year old F status post ostomy bag placement, history of DVT on Eliquis, hypothyroidism, methamphetamine abuse, presenting with abdominal pain. The following history is severely limited by patient's clinical situations. ED doctor performed CT abdomen pelvis showing signs of ileus. He called outside hospital requesting consult with the surgeon who placed the ostomy bag but they stated this is not his surgical case and refused to take the patient. An NG tube was attempted to be placed but x-ray showing it was in the wrong position so it was subsequently withdrawal. Dr. Browne recommended do not try to reinsert insert an NG tube. Ostomy bag placement has blood-tinged. Patient's found to be tested positive for methamphetamine as well as cannabis from her urine drug screen. She also have elevated blood pressure initially with a systolic blood pressure above 200 and subsequently resolved after rounds of IV hydralazine given. Patient could not be discharged from ED to home due to delirium secondary to substance abuse. Admission request is called for observations until patient's mentation is back to the baseline. 03/05: There was no major overnight events. Patient is complaining of 10 out of 10 diffuse, sharp, constant abdominal pain. She is complain of nausea but no vomit ing. She is stating that she is hungry. We will continue to provide narcotics and antiemetics for symptoms control. We will continue IV fluid infusion for now. We will check with general surgeon Dr. Summers regarding the timing to start feeding the patient. Constitutional Vitals: Vital Signs Temp Pulse Resp BP Pulse Ox O2 Del Method 97.9 F 82 22 149/95 100 03/05/22 12:00 03/05/22 12:00 03/05/22 12:00 03/05/22 12:00 03/05/22 12:03/05/22 12:00 Period Temp Pulse Resp BP Sys/Blanco Pulse Ox O2 Del Method O2 Flow Rate Last 24 Hr 97.5 F-98.2 F 76-101 14-30 132-178/92-137 95-100 Room Air-Room Air Intake and Output 03/05/22 03/05/22 03/05/22 03:59 11:59 19:59 Intake Total 1000 0 Output Total 650 Balance 1000 -650 Intake & Output: Intake & Output 03/05/22 03/05/22 03/05/22 03:59 11:59 19:59 Intake Total 1000 0 Output Total 650 Balance 1000 -650 Intake: IV 1000 Dextrose 5%-Lactated Ringers 1, 1000 000 ml @ 100 mls/hr IV .Q10H [facility] Rx#:[id number] Oral 0 Output: Urine Catheter Amount 250 Stool 400 Other: Urine Appearance Cloudy Uretheral (Orellana) Clear Clear Urine Color Yellow Uretheral (Orellana) Yellow Yellow Stool Color Brown Exam: General: Alert, Awake, No acute Distress Eyes/N/T: EOMI, Head/Neck: neck supple, CV: RRR, No murmurs, Pulm: Clear b/l, no wheezing/rhonchi/rales Abd: soft, nontender, +BS x4, Ostomy in place Ext: no clubbing/cyanosis/edema Neuro: Alert, no focal deficits, moves all extremities, Skin: warm/dry OBJ DATA Labs CBC & Chem 7: 03/05/22 06:00 03/05/22 06:00 Labs: Abnormal Lab Results 03/05/22 03/05/22 03/04/22 06:00 06:00 09:45 WBC 14.7 H RDW 14.9 H Immature Gran % (Auto) Immature Gran # 0.08 H Absolute Neutrophils 11.19 H POC VBG pH POC VBG pCO2 at Temp POC VBG pO2 POC VBG HCO3 POC VBG Total CO2 POC Venous O2 Sat POC VBG Base Excess Carbon Dioxide 21 L POC BUN BUN 25 H Creatinine 1.7 H POC Creatinine Glucose 116 H POC WB Ioniz Calcium AST Total Creatine Kinase CK-MB (CK-2) Globulin Amylase Lipase Procalcitonin TSH Free T4 Urine Protein 100 A Urine Occult Blood Small A Urine Nitrate Positive A Urine WBC 11 H Urine Bacteria Many A Hyaline Casts 3 H Urine Mucus Few A Ur Amphetamines Screen U Marijuana (THC) Screen 03/04/22 03/04/22 03/04/22 09:45 08:34 08:30 WBC RDW Immature Gran % (Auto) Immature Gran # Absolute Neutrophils POC VBG pH POC VBG pCO2 at Temp 38.4 L POC VBG pO2 POC VBG HCO3 22.3 L POC VBG Total CO2 23.0 L POC Venous O2 Sat POC VBG Base Excess -3.0 L Carbon Dioxide POC BUN BUN Creatinine POC Creatinine Glucose POC WB Ioniz Calcium AST Total Creatine Kinase 539 H CK-MB (CK-2) 17.4 H Globulin Amylase Lipase Procalcitonin TSH Free T4 Urine Protein Urine Occult Blood Urine Nitrate Urine WBC Urine Bacteria Hyaline Casts Urine Mucus Ur Amphetamines Screen Suspect positive A U Marijuana (THC) Screen Suspect positive A 03/04/22 03/04/22 03/04/22 08:29 08:00 01:55 WBC RDW Immature Gran % (Auto) Immature Gran # Absolute Neutrophils POC VBG pH 7.54 H POC VBG pCO2 at Temp 23.0 L POC VBG pO2 73 H POC VBG HCO3 19.6 L POC VBG Total CO2 20.0 L POC Venous O2 Sat 97.0 H POC VBG Base Excess -3.0 L Carbon Dioxide POC BUN 26 H BUN Creatinine POC Creatinine 1.8 H Glucose POC WB Ioniz Calcium 1.13 L AST Total Creatine Kinase CK-MB (CK-2) Globulin Amylase Lipase Procalcitonin TSH > 100 H Free T4 < 0.10 L Urine Protein Urine Occult Blood Urine Nitrate Urine WBC Urine Bacteria Hyaline Casts Urine Mucus Ur Amphetamines Screen U Marijuana (THC) Screen 03/04/22 03/04/22 03/04/22 01:40 01:40 01:40 WBC RDW 14.9 H Immature Gran % (Auto) 0.8 H Immature Gran # 0.08 H Absolute Neutrophils POC VBG pH POC VBG pCO2 at Temp POC VBG pO2 POC VBG HCO3 POC VBG Total CO2 POC Venous O2 Sat POC VBG Base Excess Carbon Dioxide POC BUN BUN Creatinine POC Creatinine Glucose POC WB Ioniz Calcium AST 41 H Total Creatine Kinase CK-MB (CK-2) Globulin 4.6 H Amylase 149 H Lipase 61 H Procalcitonin 0.11 H TSH Free T4 Urine Protein Urine Occult Blood Urine Nitrate Urine WBC Urine Bacteria Hyaline Casts Urine Mucus Ur Amphetamines Screen U Marijuana (THC) Screen Meds: Medications Acetaminophen (Acetaminophen 325 Mg Tablet) 650 mg PO Q6HP PRN; Protocol PRN Reason: Per Pain Protocol/Fever > 101 Last Admin: 03/05/22 10:29 Dose: 650 mg Albuterol/Ipratropium (Ipratropium/Albuterol 3 Ml Ampul.Neb) 3 ml NEB Q4HRT PRN PRN Reason: Wheezing Haloperidol Lactate (Haloperidol Lactate 5 Mg/Ml Vial) 2 mg IV Q4HP PRN PRN Reason: Agitation Hydralazine HCl (Hydralazine 20 Mg/Ml Vial) 10 mg IV Q4-6HP PRN PRN Reason: Hypertension Last Admin: 03/05/22 08:06 Dose: 10 mg Dextrose/Lactated Ringer's (Dextrose 5%-Lactated Ringers) 1,000 mls @ 100 mls/hr IV .Q10H [facility] Last Admin: 03/05/22 06:12 Dose: 100 mls/hr Morphine Sulfate (Morphine 4 Mg/Ml Vial) 4 mg IV Q4HP PRN; Protocol PRN Reason: Per Pain Protocol Ondansetron HCl (Ondansetron 4 Mg/2 Ml Vial) 4 mg IV Q6HP PRN PRN Reason: Nausea And Vomiting Sodium Chloride (0.9 % Sodium Chloride 10 Ml Syringe) 10 ml IV Q8 [facility] Last Admin: 03/05/22 05:37 Dose: Not Given Trazodone HCl (Trazodone Hcl 50 Mg Tablet) 25 mg PO HSP PRN PRN Reason: Insomnia A/P Narrative A/P Narrative: Assessment and Plans: *Mild ileus: -Dr. Summers following -diet per surgery, IV fluid while npo -Serial abdominal imaging KUB to document resolution of ileus, Zofran *Acute delirium 2/2 methamphetamine and cannabis abuse: -Continue to monitor, Haldol PRN psychosis agitation *Hypertensive urgency: -Likely 2/2 methamphetamine abuse -Resume oral antihypertensives from home, Hydralazine IV PRN *Hypothyroidism: Continue thyroid replacement *h/o DVT: Holding Eliquis for now due to blood tingle found in ostomy output *ppx: SCDs, Holding Eliquis for now due to blood tingle found in ostomy output Time Spent With Patient Time: Total time spent is greater than 50% in coordination of care (as documented) at patient's floor/unit and/or counseling patient:
--- NOTE | 2022-03-05 13:51 | XRay Report ---
CLINICAL INFORMATION: f/u ileus COMPARISON: None. FINDINGS: The stool gas pattern is unremarkable. Ringlike structure right upper quadrant may represent colostomy. There is no free air, soft tissue mass, organomegaly or pathologic calcification. IMPRESSION: Normal abdomen probable left basilar infiltrate. Consider repeat chest x-ray Interpreted and Authenticated by: Dave Fair 03/05/22
[2022-03-05] MEDS: CARVEDILOL 12.5 MG TABLET PO SCH ×2 (16:49→21:19)
[2022-03-05] MEDS: LORazepam 1 MG TABLET PO PRN (16:49)
--- NOTE | 2022-03-05 22:01 | General Surgery Progress Note ---
SUBJECTIVE Subjective Patient information: Note initiated : 03/05/22 at 4:15 pm Service Date, if different from initiated Date: [] Patient: Jennifer Alvarado 67 y/o F admitted on 03/04/22 for ABD PAIN. Chief Complaint: [] Abdominal pain seems resolved and she denies any discomfort at this time. Her o stomy has been working well with excellent gas and stool production. She is hungry and recent plain films from this AM do not show any evidence of obstruction or ileus. Constitutional Vitals: Vital Signs Temp Pulse Resp BP Pulse Ox O2 Del Method 97.6 F 72 22 118/106 100 03/05/22 19:15 03/05/22 19:15 03/05/22 19:15 03/05/22 19:15 03/05/22 19:15 03/05/22 19:15 Period Temp Pulse Resp BP Sys/Blanco Pulse Ox O2 Del Method O2 Flow Rate Last 24 Hr 97.6 F-98.2 F 72-101 20-24 118-178/94-117 97-100 Room Air-Room Air Intake and Output 03/05/22 03/05/22 03/06/22 11:59 19:59 03:59 Intake Total 0 1800 Output Total 650 950 325 Balance -650 850 -325 Weight 134 lb 14.4 oz Patient Weight 03/06/22 03:59 Weight 134 lb 14.4 oz Intake & Output: Intake & Output 03/05/22 03/05/22 03/06/22 11:59 19:59 03:59 Intake Total 0 1800 Output Total 650 950 325 Balance -650 850 -325 Weight 134 lb 14.4 oz Intake: IV 1000 Dextrose 5%-Lactated Ringers 1, 1000 000 ml @ 100 mls/hr IV .Q10H [facility] Rx#:[id number] Oral 0 800 Output: Urine Catheter Amount 250 300 Stool 400 650 325 Other: Urine Appearance Cloudy Uretheral (Orellana) Clear Urine Color Yellow Dark Maren Uretheral (Orellana) Yellow Stool Color Brown Exam: now awake and fully conversant GI/Abdominal Additional comments: stomal prolapse continues to look somewhat edematous and swollen but seems otherwise functional and intact, belly is soft and non tender A/P Assessment and plan (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
[2022-03-06] MEDS: 0.9 % SODIUM CHLORIDE 10 ML SYRINGE IV SCH ×3 (05:16→21:35)
[2022-03-06] MEDS: LORazepam 1 MG TABLET PO PRN ×2 (07:08→15:02)
[2022-03-06] MEDS: ACETAMINOPHEN 325 MG TABLET PO PRN (07:09)
[2022-03-06] MEDS ORDERED: LABETALOL 5 MG/ML ML IV PRN (07:31)
[2022-03-06] MEDS: CARVEDILOL 12.5 MG TABLET PO SCH ×2 (07:34→21:32)
[2022-03-06] MEDS: amLODIPine 10 MG TABLET PO SCH (07:35)
[2022-03-06] MEDS ORDERED: LACTATED RINGERS 500 ML IV ONE (07:35)
--- NOTE | 2022-03-06 07:36 | Internal Med Progress Note ---
SUBJECTIVE Subjective Patient information: Note initiated : 03/06/22 at 7:26 am Service Date, if different from initiated Date: [] Patient: Jennifer Alvarado a 67 y/o F admitted on 03/04/22 for ABD PAIN. Chief Complaint: [] Interval history: Ms. Alvarado is a 67 year old F status post ostomy bag placement, history of DVT on Eliquis, hypothyroidism, methamphetamine abuse, presenting with abdominal pain. The following history is severely limited by patient's clinical situations. ED doctor performed CT abdomen pelvis showing signs of ileus. He called outside hospital requesting consult with the surgeon who placed the ostomy bag but they stated this is not his surgical case and refused to take the patient. An NG tube was attempted to be placed but x-ray showing it was in the wrong position so it was subsequently withdrawal. Dr. Browne recommended do not try to reinsert insert an NG tube. Ostomy bag placement has blood-tinged. Patient's found to be tested positive for methamphetamine as well as cannabis from her urine drug screen. She also have elevated blood pressure initially with a systolic blood pressure above 200 and subsequently resolved after rounds of IV hydralazine given. Patient could not be discharged from ED to home due to delirium secondary to substance abuse. Admission request is called for observations until patient's mentation is back to the baseline. 03/05: There was no major overnight events. Patient is complaining of 10 out of 10 diffuse, sharp, constant abdominal pain. She is complain of nausea but no vomit ing. She is stating that she is hungry. We will continue to provide narcotics and antiemetics for symptoms control. We will continue IV fluid infusion for now. We will check with general surgeon Dr. Summers regarding the timing to start feeding the patient. 03/06 Patient mentation is improved from admit but still with some intermittent mild confusion. She does feel. She states very weak feels a little bit worse than yesterday but cannot explain how. She complains of headache. She has no more bleeding via her ostomy. Synthroid was restarted and she admits that she does not take it very often which is also reflected in her severely abnormal thyroid function labs. Urine culture grew Klebsiella oxytocin and will start antibiotics. Mild improvement in leukocytosis. Renal function similar to yesterday may be a touch better. Review of Systems: denies fever/chills/nausea/vomiting/chest or abdominal pain/cough/dyspnea/diarrhea. Otherwise see above. Urine culture growing Klebsiella oxytocin. start Abx Constitutional Vitals: Vital Signs Temp Pulse Resp BP Pulse Ox O2 Del Method 98.6 F 66 18 173/102 96 03/06/22 03:53 03/06/22 03:53 03/06/22 03:53 03/06/22 03:53 03/06/22 03:53 03/06/22 03:53 Period Temp Pulse Resp BP Sys/Blanco Pulse Ox O2 Del Method O2 Flow Rate Last 24 Hr 97.6 F-98.6 F 66-92 18-22 116-173/91-117 95-100 Room Air-Room Air Intake and Output 03/05/22 03/06/22 03/06/22 19:59 03:59 11:59 Intake Total 1678 619 3388 Output Total 950 800 250 Balance 850 -600 870 Weight 61.19 kg Intake & Output: Intake & Output 03/05/22 03/06/22 03/06/22 19:59 03:59 11:59 Intake Total 6366 902 4244 Output Total 950 800 250 Balance 850 -600 870 Weight 61.19 kg Intake: IV 1000 1000 Dextrose 5%-Lactated Ringers 1, 1000 1000 000 ml @ 70 mls/hr IV .[id number] [facility] Rx#:[id number] Oral 800 200 120 Output: Urine Catheter Amount 300 Void Amount 225 Stool 650 575 250 Other: Urine Appearance Clear Uretheral (Orellana) Clear Clear Urine Color Dark Maren Yellow Uretheral (Orellana) Yellow Dark Yellow Stool Color Brown Green Stool Consistency Liquid Watery Loose Exam: General: Awake, No acute Distress, very weak Eyes/N/T: EOMI, Head/Neck: neck supple, CV: RRR, No murmurs, Pulm: Clear b/l, no wheezing/rhonchi/rales Abd: soft, nontender, +BS x4, Ostomy in place Ext: no clubbing/cyanosis/edema Neuro: Weak and somewhat drowsy, no focal deficits, moves all extremities, Skin: warm/dry OBJ DATA Labs CBC & Chem 7: 03/06/22 08:04 03/06/22 08:04 Labs: Abnormal Lab Results 03/05/22 03/05/22 03/04/22 06:00 06:00 09:45 WBC 14.7 H RDW 14.9 H Immature Gran % (Auto) Immature Gran # 0.08 H Absolute Neutrophils 11.19 H POC VBG pH POC VBG pCO2 at Temp POC VBG pO2 POC VBG HCO3 POC VBG Total CO2 POC Venous O2 Sat POC VBG Base Excess Carbon Dioxide 21 L POC BUN BUN 25 H Creatinine 1.7 H POC Creatinine Glucose 116 H POC WB Ioniz Calcium AST Total Creatine Kinase CK-MB (CK-2) Globulin Amylase Lipase Procalcitonin TSH Free T4 Urine Protein 100 A Urine Occult Blood Small A Urine Nitrate Positive A Urine WBC 11 H Urine Bacteria Many A Hyaline Casts 3 H Urine Mucus Few A Ur Amphetamines Screen U Marijuana (THC) Screen 03/04/22 03/04/22 03/04/22 09:45 08:34 08:30 WBC RDW Immature Gran % (Auto) Immature Gran # Absolute Neutrophils POC VBG pH POC VBG pCO2 at Temp 38.4 L POC VBG pO2 POC VBG HCO3 22.3 L POC VBG Total CO2 23.0 L POC Venous O2 Sat POC VBG Base Excess -3.0 L Carbon Dioxide POC BUN BUN Creatinine POC Creatinine Glucose POC WB Ioniz Calcium AST Total Creatine Kinase 539 H CK-MB (CK-2) 17.4 H Globulin Amylase Lipase Procalcitonin TSH Free T4 Urine Protein Urine Occult Blood Urine Nitrate Urine WBC Urine Bacteria Hyaline Casts Urine Mucus Ur Amphetamines Screen Suspect positive A U Marijuana (THC) Screen Suspect positive A 03/04/22 03/04/22 03/04/22 08:29 08:00 01:55 WBC RDW Immature Gran % (Auto) Immature Gran # Absolute Neutrophils POC VBG pH 7.54 H POC VBG pCO2 at Temp 23.0 L POC VBG pO2 73 H POC VBG HCO3 19.6 L POC VBG Total CO2 20.0 L POC Venous O2 Sat 97.0 H POC VBG Base Excess -3.0 L Carbon Dioxide POC BUN 26 H BUN Creatinine POC Creatinine 1.8 H Glucose POC WB Ioniz Calcium 1.13 L AST Total Creatine Kinase CK-MB (CK-2) Globulin Amylase Lipase Procalcitonin TSH > 100 H Free T4 < 0.10 L Urine Protein Urine Occult Blood Urine Nitrate Urine WBC Urine Bacteria Hyaline Casts Urine Mucus Ur Amphetamines Screen U Marijuana (THC) Screen 03/04/22 03/04/22 03/04/22 01:40 01:40 01:40 WBC RDW 14.9 H Immature Gran % (Auto) 0.8 H Immature Gran # 0.08 H Absolute Neutrophils POC VBG pH POC VBG pCO2 at Temp POC VBG pO2 POC VBG HCO3 POC VBG Total CO2 POC Venous O2 Sat POC VBG Base Excess Carbon Dioxide POC BUN BUN Creatinine POC Creatinine Glucose POC WB Ioniz Calcium AST 41 H Total Creatine Kinase CK-MB (CK-2) Globulin 4.6 H Amylase 149 H Lipase 61 H Procalcitonin 0.11 H TSH Free T4 Urine Protein Urine Occult Blood Urine Nitrate Urine WBC Urine Bacteria Hyaline Casts Urine Mucus Ur Amphetamines Screen U Marijuana (THC) Screen Meds: Medications Acetaminophen (Acetaminophen 325 Mg Tablet) 650 mg PO Q6HP PRN; Protocol PRN Reason: Per Pain Protocol/Fever > 101 Last Admin: 03/06/22 07:09 Dose: 650 mg Albuterol/Ipratropium (Ipratropium/Albuterol 3 Ml Ampul.Neb) 3 ml NEB Q4HRT PRN PRN Reason: Wheezing Amlodipine Besylate (Amlodipine 10 Mg Tablet) 10 mg PO DAILY [facility] Carvedilol (Carvedilol 12.5 Mg Tablet) 25 mg PO BID [facility] Last Admin: 03/05/22 21:19 Dose: Not Given Haloperidol Lactate (Haloperidol Lactate 5 Mg/Ml Vial) 2 mg IV Q4HP PRN PRN Reason: Agitation Hydralazine HCl (Hydralazine 20 Mg/Ml Vial) 10 mg IV Q4-6HP PRN PRN Reason: Hypertension Last Admin: 03/05/22 08:06 Dose: 10 mg Levothyroxine Sodium (Levothyroxine 100 Mcg Tablet) 100 mcg PO DAILY [facility] Last Admin: 03/06/22 07:09 Dose: 100 mcg Lorazepam (Lorazepam 1 Mg Tablet) 1 mg PO Q8HP PRN PRN Reason: Anxiety Last Admin: 03/06/22 07:08 Dose: 1 mg Morphine Sulfate (Morphine 4 Mg/Ml Vial) 4 mg IV Q4HP PRN; Protocol PRN Reason: Per Pain Protocol Ondansetron HCl (Ondansetron 4 Mg/2 Ml Vial) 4 mg IV Q6HP PRN PRN Reason: Nausea And Vomiting Sodium Chloride (0.9 % Sodium Chloride 10 Ml Syringe) 10 ml IV Q8 [facility] Last Admin: 03/06/22 05:16 Dose: Not Given Trazodone HCl (Trazodone Hcl 50 Mg Tablet) 25 mg PO HSP PRN PRN Reason: Insomnia Trazodone HCl (Trazodone Hcl 50 Mg Tablet) 50 mg PO DAILY [facility] A/P Narrative A/P Narrative: Assessment and Plans: *Mild ileus: resolved -Dr. Summers following -diet started *Acute delirium 2/2 methamphetamine and cannabis abuse: waxes/wanes, overall improving -Continue to monitor, Haldol PRN psychosis agitation -CT brain *Hypertensive urgency: -Likely 2/2 methamphetamine abuse -Resume oral norvasc/coreg, Hydralazine IV PRN -clarify home meds *Hypothyroidism: 2/2 mediction compliance -tsh>100, T4<0.10 ; possibly contributing to AMS -restart synthroid IV, patient states she does not take regularly at home *POLY on CKD IIIb: -IVF, monitor *UTI(Klebsiella oxytocin): -levaquin *h/o DVT:was on eliqius in past, not on anymore *ppx: SCDs, lovenox Time Spent With Patient Time: Total time spent is greater than 50% in coordination of care (as documented) at patient's floor/unit and/or counseling patient: Subsequent: Total time with patient: 50 - 65 Minutes QUALITY Stroke Symptom Onset Unknown: No VTE Deep Vein Thrombosis/Pulmonary Embolism Present on Admission: No
[2022-03-06 08:53] LABS: Basophils # (Auto) 0.06 K/mcL (0.00-0.30); Basophils % (Auto) 0.5 % (0.0-2.0); Eosinophils % (Auto) 0.8 % (0.0-7.0); Hematocrit 42.4 % (34.1-44.9); Hemoglobin 13.4 g/dL (11.2-15.7); Lymphocytes # (Auto) 2.57 K/mcL (1.50-4.80); Lymphocytes % (Auto) 19.5 % (15.5-49.0); Mean Corpuscular HGB Conc 31.6 g/dL (31.0-36.0); Monocytes # (Auto) 0.56 K/mcL (0.10-0.90); Monocytes % (Auto) 4.3 % (1.0-12.0); Neutrophils % (Auto) 74.2 % (38.0-78.0); Platelet Count 324 K/mcL (140-440); RBC 4.61 M/mcL (3.59-5.38); WBC 13.2 K/mcL (4.5-11.0)
[2022-03-06] MEDS ORDERED: LEVOTHYROXINE 100 MCG TABLET PO SCH (09:00)
[2022-03-06] MEDS: traZODone HCL 50 MG TABLET PO SCH ×2 (09:44→13:04)
[2022-03-06 09:45] LABS: ALT/SGPT 15 U/L (<40); AST/SGOT 32 U/L (<32); Albumin 3.2 gm/dL (3.2-5.2); Albumin/Globulin Ratio 0.8 (1.0-2.3); Alkaline Phosphatase 58 U/L (39-117); Bilirubin,Direct < 0.2 mg/dL (0-0.3); Bilirubin,Total 0.5 mg/dL (0.1-1.0); Blood Urea Nitrogen 21 mg/dL (8-23); Calcium 8.5 mg/dL (8.6-10.4); Carbon Dioxide 20 mmol/L (22-30); Chloride 102 mmol/L (96-108); Globulin 3.9 gm/dL (2.2-3.7); Glomerular Filtration Rate 33; Glucose 114 mg/dL (70-105); Lactate Dehydrogenase 362 U/L (135-225); Phosphorous 2.5 mg/dL (2.5-4.5); Triglycerides 114 mg/dL (<150); Uric Acid 7.2 mg/dL (2.5-8.0)
[2022-03-06] MEDS ORDERED: LIOTHYRONINE 5 MCG TABLET PO ONE (11:00)
[2022-03-06] MEDS ORDERED: LEVOTHYROXINE 100 MCG VIAL IV ONE (11:00)
[2022-03-06] MEDS: LEVOFLOXACIN 750 MG/150 ML BAG IV SCH (11:19)
--- NOTE | 2022-03-06 11:30 | Cat Scan Report ---
CLINICAL INFORMATION: Confusion COMPARISON: 10/29/[address] TECHNIQUE: 2.5 mm helical slices were obtained in the skull base to vertex. Following reconstruction, axial reformatted images were reviewed at bone and parenchymal windows. The exam was performed using radiation dose optimization techniques including, but not limited to, automated exposure control, adjustment of the mA and/or kV according to patient size and use of iterative reconstruction technique. FINDINGS: The ventricles, sulci, fissures, and cisterns are symmetrically enlarged compatible with mild age-related atrophy. No extra-axial fluid collections are identified. Mild patchy chronic ischemic changes, in the deep cerebral white matter, are expected for age. There is no hemorrhage, mass effect, or edema. Bone windows show no osseous abnormality. Marked mucosal thickening left maxillary, left sphenoid, left anterior posterior ethmoid and left frontal air cells is new from the previous exam. IMPRESSION: Mild atrophy and chronic ischemic changes in the deep cerebral white matter-expected for age. No acute intracerebral findings Severe left maxillary, left sphenoid, left ethmoid and left frontal sinusitis-new from the comparison examination four months ago Interpreted and Authenticated by: Dave Fair 03/06/22
[2022-03-06] MEDS ORDERED: OLANZapine 2.5 MG TABLET PO ONE (16:38)
[2022-03-06] MEDS: hydrALAZINE 20 MG/ML VIAL IV PRN (19:20)
[2022-03-06] MEDS: morphine 4 MG/ML VIAL IV PRN (21:59)
--- NOTE | 2022-03-06 22:31 | General Surgery Progress Note ---
SUBJECTIVE Subjective Patient information: Note initiated : 03/06/22 at 1330 pm Service Date, if different from initiated Date: [] Patient: Jennifer Alvarado 67 y/o F admitted on 03/06/22 for ABD PAIN. Chief Complaint: [] Issues with delirium continue, has had good stomal function and output Constitutional Vitals: Vital Signs Temp Pulse Resp BP Pulse Ox O2 Del Method O2 Flow Rate 98.8 F 65 16 154/74 97 96 03/06/22 21:15 03/06/22 19:00 03/06/22 21:15 03/06/22 21:15 03/06/22 21:15 03/06/22 21:15 03/06/22 19:00 Period Temp Pulse Resp BP Sys/Blanco Pulse Ox O2 Del Method O2 Flow Rate Last 24 Hr 97.3 F-98.8 F 65-70 14-20 111-173/60-102 95-98 Room Air-Room Air 96 Intake and Output 03/06/22 03/06/22 03/07/22 11:59 19:59 03:59 Intake Total 1120 390 Output Total 250 550 Balance 870 -160 Intake & Output: Intake & Output 03/06/22 03/06/22 03/07/22 11:59 19:59 03:59 Intake Total 1120 390 Output Total 250 550 Balance 870 -160 Intake: IV 1000 150 Dextrose 5%-Lactated Ringers 1, 1000 000 ml @ 70 mls/hr IV .[id number] [facility] Rx#:[id number] Oral 120 240 Output: Urine Catheter Amount 350 Stool 250 200 Other: Meal Dinner Percent of Meal Consumed 75% Feeding Ability Total Assistance Urine Appearance Cloudy Uretheral (Orellana) Clear Cloudy Urine Color Dark Maren Uretheral (Orellana) Yellow Stool Color Brown Brown Green Green Stool Consistency Liquid Liquid Exam: delirious and incoherent, non conversant GI/Abdominal Additional comments: belly seems soft and non distended, non tender. The ostomy seems less swollen and prominent today and the base looks pink and fully viable. The outer aspect has ischemic and congested changes but without bleeding or evidence of any surrounding cellulitis. A/P Assessment and plan (1) Prolapse of stoma: Assessment and plan: Stomal prolapse remains and there are some distal ischemic changes but the base looks fully viable and I think its likely that even with some outer slough, operative revision probably will not be necessary. We will continue to follow along and although its possible she might ultimately require some sort of revision, given her other health issues, avoidance of a significant abdominal exploration would be more optimal Ok to continue oral intake for now and would continue IV ABs as well Status: Acute Time Spent With Patient Time: Total time spent is greater than 50% in coordination of care (as documented) at patient's floor/unit and/or counseling patient:
[2022-03-07] MEDS: 0.9 % SODIUM CHLORIDE 10 ML SYRINGE IV SCH ×2 (07:00→14:57)
[2022-03-07 07:30] LABS: Basophils # (Auto) 0.05 K/mcL (0.00-0.30); Basophils % (Auto) 0.5 % (0.0-2.0); Eosinophils # (Auto) 0.07 K/mcL (0.00-0.70); Eosinophils % (Auto) 0.6 % (0.0-7.0); Hematocrit 39.4 % (34.1-44.9); Hemoglobin 12.6 g/dL (11.2-15.7); Lymphocytes # (Auto) 2.43 K/mcL (1.50-4.80); Mean Platelet Volume 10.4 fL (8.8-12.5); Monocytes # (Auto) 0.55 K/mcL (0.10-0.90); Neutrophils % (Auto) 70.7 % (38.0-78.0); Platelet Count 301 K/mcL (140-440); RBC 4.33 M/mcL (3.59-5.38); Red Cell Distribution Width 14.8 % (11.5-14.5); WBC 11.1 K/mcL (4.5-11.0)
--- NOTE | 2022-03-07 07:40 | Internal Med Progress Note ---
SUBJECTIVE Subjective Patient information: Note initiated : 03/07/22 at 7:37 am Service Date, if different from initiated Date: [] Patient: Jennifer Alvarado a 67 y/o F admitted on 03/06/22 for ABD PAIN. Chief Complaint: [] Interval history: Ms. Alvarado is a 67 year old F status post ostomy bag placement, history of DVT on Eliquis, hypothyroidism, methamphetamine abuse, presenting with abdominal pain. The following history is severely limited by patient's clinical situations. ED doctor performed CT abdomen pelvis showing signs of ileus. He called outside hospital requesting consult with the surgeon who placed the ostomy bag but they stated this is not his surgical case and refused to take the patient. An NG tube was attempted to be placed but x-ray showing it was in the wrong position so it was subsequently withdrawal. Dr. Browne recommended do not try to reinsert insert an NG tube. Ostomy bag placement has blood-tinged. Patient's found to be tested positive for methamphetamine as well as cannabis from her urine drug screen. She also have elevated blood pressure initially with a systolic blood pressure above 200 and subsequently resolved after rounds of IV hydralazine given. Patient could not be discharged from ED to home due to delirium secondary to substance abuse. Admission request is called for observations until patient's mentation is back to the baseline. 03/05: There was no major overnight events. Patient is complaining of 10 out of 10 diffuse, sharp, constant abdominal pain. She is complain of nausea but no vomit ing. She is stating that she is hungry. We will continue to provide narcotics and antiemetics for symptoms control. We will continue IV fluid infusion for now. We will check with general surgeon Dr. Summers regarding the timing to start feeding the patient. 03/06 Patient mentation is improved from admit but still with some intermittent mild confusion. She does feel. She states very weak feels a little bit worse than yesterday but cannot explain how. She complains of headache. She has no more bleeding via her ostomy. Synthroid was restarted and she admits that she does not take it very often which is also reflected in her severely abnormal thyroid function labs. Urine culture grew Klebsiella oxytocin and will start antibiotics. Mild improvement in leukocytosis. Renal function similar to yesterday may be a touch better. 03/07 Patient slept all right per nursing. Patient drowsy this morning similar to yesterday. But does answer questions appropriately. She was agitated yesterday evening and did get Zyprexa. Leukocytosis improving. Renal function stable suspect this might be her baseline. Review of Systems: denies fever/chills/nausea/vomiting/chest or abdominal pain/cough/ dyspnea/diarrhea. Otherwise see above. Urine culture growing Klebsiella oxytocin. start Abx Constitutional Vitals: Vital Signs Temp Pulse Resp BP Pulse Ox O2 Del Method O2 Flow Rate 98.6 F 60 16 124/76 93 Room Air 96 03/07/22 03:30 03/06/22 21:15 03/07/22 03:30 03/07/22 03:30 03/07/22 03:30 03/07/22 03:30 03/06/22 19:00 Period Temp Pulse Resp BP Sys/Blanco Pulse Ox O2 Del Method O2 Flow Rate Last 24 Hr 97.3 F-98.8 F 60-69 14-20 111-163/60-95 93-98 Room Air-Room Air 96 Intake and Output 03/06/22 03/07/22 03/07/22 19:59 03:59 11:59 Intake Total 390 400 Output Total 725 850 Balance -335 -450 Weight 63.231 kg Intake & Output: Intake & Output 03/06/22 03/07/22 03/07/22 19:59 03:59 11:59 Intake Total 390 400 Output Total 725 850 Balance -335 -450 Weight 63.231 kg Intake: IV 150 Oral 240 400 Output: Urine Catheter Amount 350 750 Stool 375 100 Other: Meal Dinner Percent of Meal Consumed 75% Feeding Ability Total Assistance Urine Appearance Cloudy Clear Uretheral (Orellana) Cloudy Urine Color Dark Maren Dark Yellow Uretheral (Orellana) Yellow Stool Color Brown Green Stool Consistency Liquid Exam: General: Awake but somewhat drowsy, no acute Distress, very weak Eyes/N/T: EOMI, Head/Neck: neck supple, CV: RRR, No murmurs, Pulm: Clear b/l, no wheezing/rhonchi/rales Abd: soft, nontender, +BS x4, Ostomy in place Ext: no clubbing/cyanosis/edema Neuro: Weak and somewhat drowsy, no focal deficits, moves all extremities, Skin: warm/dry Psych: flat affect OBJ DATA Labs 03/07/22 06:08 03/06/22 08:04 Labs: Abnormal Lab Results 03/07/22 03/06/22 03/06/22 06:08 08:04 08:04 WBC 11.1 H 13.2 H RDW 14.8 H 15.0 H Immature Gran % (Auto) 1.2 H 0.7 H Immature Gran # 0.13 H 0.09 H Absolute Neutrophils 9.77 H POC VBG pH POC VBG pCO2 at Temp POC VBG pO2 POC VBG HCO3 POC VBG Total CO2 POC Venous O2 Sat POC VBG Base Excess Carbon Dioxide 20 L BUN Creatinine 1.6 H Glucose 114 H Calcium 8.5 L AST 32 H Lactate Dehydrogenase 362 H Total Creatine Kinase CK-MB (CK-2) Globulin 3.9 H Albumin/Globulin Ratio 0.8 L TSH Free T4 Urine Protein Urine Occult Blood Urine Nitrate Urine WBC Urine Bacteria Hyaline Casts Urine Mucus Ur Amphetamines Screen U Marijuana (THC) Screen 03/05/22 03/05/22 03/04/22 06:00 06:00 09:45 WBC 14.7 H RDW 14.9 H Immature Gran % (Auto) Immature Gran # 0.08 H Absolute Neutrophils 11.19 H POC VBG pH POC VBG pCO2 at Temp POC VBG pO2 POC VBG HCO3 POC VBG Total CO2 POC Venous O2 Sat POC VBG Base Excess Carbon Dioxide 21 L BUN 25 H Creatinine 1.7 H Glucose 116 H Calcium AST Lactate Dehydrogenase Total Creatine Kinase CK-MB (CK-2) Globulin Albumin/Globulin Ratio TSH Free T4 Urine Protein 100 A Urine Occult Blood Small A Urine Nitrate Positive A Urine WBC 11 H Urine Bacteria Many A Hyaline Casts 3 H Urine Mucus Few A Ur Amphetamines Screen U Marijuana (THC) Screen 03/04/22 03/04/22 03/04/22 09:45 08:34 08:30 WBC RDW Immature Gran % (Auto) Immature Gran # Absolute Neutrophils POC VBG pH POC VBG pCO2 at Temp 38.4 L POC VBG pO2 POC VBG HCO3 22.3 L POC VBG Total CO2 23.0 L POC Venous O2 Sat POC VBG Base Excess -3.0 L Carbon Dioxide BUN Creatinine Glucose Calcium AST Lactate Dehydrogenase Total Creatine Kinase 539 H CK-MB (CK-2) 17.4 H Globulin Albumin/Globulin Ratio TSH Free T4 Urine Protein Urine Occult Blood Urine Nitrate Urine WBC Urine Bacteria Hyaline Casts Urine Mucus Ur Amphetamines Screen Suspect positive A U Marijuana (THC) Screen Suspect positive A 03/04/22 03/04/22 08:29 08:00 WBC RDW Immature Gran % (Auto) Immature Gran # Absolute Neutrophils POC VBG pH 7.54 H POC VBG pCO2 at Temp 23.0 L POC VBG pO2 73 H POC VBG HCO3 19.6 L POC VBG Total CO2 20.0 L POC Venous O2 Sat 97.0 H POC VBG Base Excess -3.0 L Carbon Dioxide BUN Creatinine Glucose Calcium AST Lactate Dehydrogenase Total Creatine Kinase CK-MB (CK-2) Globulin Albumin/Globulin Ratio TSH > 100 H Free T4 < 0.10 L Urine Protein Urine Occult Blood Urine Nitrate Urine WBC Urine Bacteria Hyaline Casts Urine Mucus Ur Amphetamines Screen U Marijuana (THC) Screen Meds: Medications Acetaminophen (Acetaminophen 325 Mg Tablet) 650 mg PO Q6HP PRN; Protocol PRN Reason: Per Pain Protocol/Fever > 101 Last Admin: 03/06/22 07:09 Dose: 650 mg Albuterol/Ipratropium (Ipratropium/Albuterol 3 Ml Ampul.Neb) 3 ml NEB Q4HRT PRN PRN Reason: Wheezing Amlodipine Besylate (Amlodipine 10 Mg Tablet) 10 mg PO DAILY [facility] Last Admin: 03/06/22 07:35 Dose: 10 mg Carvedilol (Carvedilol 12.5 Mg Tablet) 25 mg PO BID [facility] Last Admin: 03/06/22 21:32 Dose: 25 mg Enoxaparin Sodium (Enoxaparin 30 Mg/0.3 Ml Syringe) 30 mg SQ DAILY [facility] Haloperidol Lactate (Haloperidol Lactate 5 Mg/Ml Vial) 2 mg IV Q4HP PRN PRN Reason: Agitation Hydralazine HCl (Hydralazine 20 Mg/Ml Vial) 0 mg IV Q2HP PRN PRN Reason: Hypertension Last Admin: 03/06/22 19:20 Dose: 10 mg Levofloxacin (Levaquin) 750 mg in 150 mls @ 100 mls/hr IV Q48H [facility] Last Infusion: 03/06/22 13:00 Dose: Infused Labetalol HCl (Labetalol 5 Mg/Ml Ml) 0 mg IV Q2HP PRN PRN Reason: Hypertension Levothyroxine Sodium (Levothyroxine 100 Mcg Vial) 100 mcg IV QAMAC [facility] Lorazepam (Lorazepam 1 Mg Tablet) 1 mg PO Q8HP PRN PRN Reason: Anxiety Last Admin: 03/06/22 15:02 Dose: 1 mg Morphine Sulfate (Morphine 4 Mg/Ml Vial) 4 mg IV Q4HP PRN; Protocol PRN Reason: Per Pain Protocol Last Admin: 03/06/22 21:59 Dose: 4 mg Ondansetron HCl (Ondansetron 4 Mg/2 Ml Vial) 4 mg IV Q6HP PRN PRN Reason: Nausea And Vomiting Sodium Chloride (0.9 % Sodium Chloride 10 Ml Syringe) 10 ml IV Q8 [facility] Last Admin: 03/06/22 21:35 Dose: 10 ml Trazodone HCl (Trazodone Hcl 50 Mg Tablet) 25 mg PO HSP PRN PRN Reason: Insomnia Last Admin: 03/06/22 21:32 Dose: 25 mg Trazodone HCl (Trazodone Hcl 50 Mg Tablet) 50 mg PO DAILY [facility] Last Admin: 03/06/22 13:04 Dose: 50 mg A/P Narrative A/P Narrative: Assessment and Plans: *Mild ileus: resolved -Dr. Summers following -diet started *Encephalopathy/Acute delirium/flat affect: 2/2 UTI + ?psych + ?hypothyroid: waxes/wanes, overall improving -Continue to monitor, -CT brain mild atrophy and chronic ischemic changes. No acute findings. *Hypertensive urgency: resolved -Likely 2/2 methamphetamine abuse -Resume oral norvasc/coreg, Hydralazine IV PRN -clarify home meds *severe Hypothyroidism: 2/2 medication noncompliance -tsh>100, T4<0.10 ; possibly contributing to AMS -restart synthroid IV for now, patient states she does not take regularly at home *?POLY on CKD IIIb: -IVF, monitor *UTI(Klebsiella oxytocin): -levaquin -leukocytosis improving *h/o DVT:was on eliqius in past, not on anymore *Tobacco abuse: Smoking cessation counseling >3 min *Generalized weakness/deconditioning: -PT/OT -CM for placement *ppx: SCDs, lovenox Time Spent With Patient Time: Total time spent is greater than 50% in coordination of care (as documented) at patient's floor/unit and/or counseling patient: Subsequent: Total time with patient: 50 - 65 Minutes QUALITY Stroke Symptom Onset Unknown: No VTE Deep Vein Thrombosis/Pulmonary Embolism Present on Admission: No
[2022-03-07 07:57] LABS: ALT/SGPT 12 U/L (<40); AST/SGOT 27 U/L (<32); Albumin 3.2 gm/dL (3.2-5.2); Albumin/Globulin Ratio 0.9 (1.0-2.3); Alkaline Phosphatase 57 U/L (39-117); Bilirubin,Direct < 0.2 mg/dL (0-0.3); Bilirubin,Total 0.4 mg/dL (0.1-1.0); Blood Urea Nitrogen 19 mg/dL (8-23); Calcium 8.4 mg/dL (8.6-10.4); Carbon Dioxide 20 mmol/L (22-30); Chloride 101 mmol/L (96-108); Globulin 3.5 gm/dL (2.2-3.7); Glomerular Filtration Rate 31; Glucose 93 mg/dL (70-105); Lactate Dehydrogenase 340 U/L (135-225); Phosphorous 2.7 mg/dL (2.5-4.5); Triglycerides 145 mg/dL (<150); Uric Acid 6.9 mg/dL (2.5-8.0)
[2022-03-07] MEDS: LEVOTHYROXINE 100 MCG VIAL IV SCH (08:31)
[2022-03-07] MEDS: ENOXAPARIN 30 MG/0.3 ML SYRINGE SQ SCH (08:31)
[2022-03-07] MEDS: CARVEDILOL 12.5 MG TABLET PO SCH ×2 (08:32→20:23)
[2022-03-07] MEDS: amLODIPine 10 MG TABLET PO SCH (08:32)
[2022-03-07] MEDS: traZODone HCL 50 MG TABLET PO SCH ×2 (09:03→19:55)
[2022-03-07] MEDS: ACETAMINOPHEN 325 MG TABLET PO PRN ×2 (12:28→19:55)
[2022-03-07] MEDS: NICOTINE 14 MG PATCH TOPICAL SCH (12:29)
[2022-03-07] MEDS: LORazepam 1 MG TABLET PO PRN (15:38)
[2022-03-07] MEDS: morphine 4 MG/ML VIAL IV PRN (16:12)
[2022-03-07] MEDS: MELATONIN 3 MG TABLET PO SCH (20:38)
[2022-03-07] MEDS: OLANZapine 5 MG TABLET PO PRN (20:38)
[2022-03-08] MEDS: 0.9 % SODIUM CHLORIDE 10 ML SYRINGE IV SCH ×4 (00:06→21:25)
[2022-03-08] MEDS: hydrALAZINE 20 MG/ML VIAL IV PRN (04:47)
--- NOTE | 2022-03-08 07:34 | Internal Med Progress Note ---
SUBJECTIVE Subjective Patient information: Note initiated : 03/08/22 at 7:32 am Service Date, if different from initiated Date: [] Patient: Jennifer Alvarado a 67 y/o F admitted on 03/06/22 for ABD PAIN. Chief Complaint: [] Interval history: Ms. Alvarado is a 67 year old F status post ostomy bag placement, history of DVT on Eliquis, hypothyroidism, methamphetamine abuse, presenting with abdominal pain. The following history is severely limited by patient's clinical situations. ED doctor performed CT abdomen pelvis showing signs of ileus. He called outside hospital requesting consult with the surgeon who placed the ostomy bag but they stated this is not his surgical case and refused to take the patient. An NG tube was attempted to be placed but x-ray showing it was in the wrong position so it was subsequently withdrawal. Dr. Browne recommended do not try to reinsert insert an NG tube. Ostomy bag placement has blood-tinged. Patient's found to be tested positive for methamphetamine as well as cannabis from her urine drug screen. She also have elevated blood pressure initially with a systolic blood pressure above 200 and subsequently resolved after rounds of IV hydralazine given. Patient could not be discharged from ED to home due to delirium secondary to substance abuse. Admission request is called for observations until patient's mentation is back to the baseline. 03/05: There was no major overnight events. Patient is complaining of 10 out of 10 diffuse, sharp, constant abdominal pain. She is complain of nausea but no vomit ing. She is stating that she is hungry. We will continue to provide narcotics and antiemetics for symptoms control. We will continue IV fluid infusion for now. We will check with general surgeon Dr. Summers regarding the timing to start feeding the patient. 03/06 Patient mentation is improved from admit but still with some intermittent mild confusion. She does feel. She states very weak feels a little bit worse than yesterday but cannot explain how. She complains of headache. She has no more bleeding via her ostomy. Synthroid was restarted and she admits that she does not take it very often which is also reflected in her severely abnormal thyroid function labs. Urine culture grew Klebsiella oxytocin and will start antibiotics. Mild improvement in leukocytosis. Renal function similar to yesterday may be a touch better. 03/07 Patient slept all right per nursing. Patient drowsy this morning similar to yesterday. But does answer questions appropriately. She was agitated yesterday evening and did get Zyprexa. Leukocytosis improving. Renal function stable suspect this might be her baseline. 03/08 Patient ambulated in [place] yesterday fairly well. Patient with flat affect in th e morning and poorly communicative. Patient likely benefit from psych eval. was agitated last night, Difficulty in sleeping. Review of Systems: denies fever/chills/nausea/vomiting/chest or abdominal pain/cough/dyspnea/diarrhea. Otherwise see above. Urine culture growing Klebsiella oxytocin. start Abx Constitutional Vitals: Vital Signs Temp Pulse Resp BP Pulse Ox O2 Del Method O2 Flow Rate 97.5 F 79 16 124/96 94 Room Air 96 03/08/22 04:00 03/08/22 04:00 03/08/22 04:00 03/07/22 18:45 03/08/22 00:00 03/08/22 04:00 03/06/22 19:00 Period Temp Pulse Resp BP Sys/Blanco Pulse Ox O2 Del Method O2 Flow Rate Last 24 Hr 97.3 F-98.4 F 64-79 16-20 96-152/72-96 94-100 Room Air-Room Air Intake and Output 03/07/22 03/08/22 03/08/22 19:59 03:59 11:59 Intake Total 1080 240 350 Output Total 850 550 Balance 230 240 -200 Weight 63.231 kg 62.142 kg Intake & Output: Intake & Output 03/07/22 03/08/22 03/08/22 19:59 03:59 11:59 Intake Total 1080 240 350 Output Total 850 550 Balance 230 240 -200 Weight 63.231 kg 62.142 kg Intake: Oral 1080 240 350 Output: Urine Catheter Amount 400 350 Stool 450 200 Other: Meal Chocolate ice cream [place] ice cream, egg salad and crackers Percent of Meal Consumed 50% 100% Feeding Ability Independent Independent Urine Appearance Clear Clear Uretheral (Orellana) Clear Urine Color Yellow Yellow Uretheral (Orellana) Yellow Stool Size Small Stool Color Brown Stool Consistency Liquid Exam: General: Awake but appears somewhat drowsy vs apathy, no acute Distress, very weak Eyes/N/T: EOMI, Head/Neck: neck supple, CV: RRR, No murmurs, Pulm: Clear b/l, no wheezing/rhonchi/rales Abd: soft, nontender, +BS x4, Ostomy in place Ext: no clubbing/cyanosis/edema Neuro: Weak, poorly communicative in the mornings, no focal deficits, moves all extremities, Skin: warm/dry Psych: flat affect OBJ DATA Labs 03/07/22 06:08 03/07/22 06:08 Labs: Abnormal Lab Results 03/07/22 03/07/22 03/06/22 06:08 06:08 08:04 WBC 11.1 H RDW 14.8 H Immature Gran % (Auto) 1.2 H Immature Gran # 0.13 H Absolute Neutrophils Carbon Dioxide 20 L 20 L BUN Creatinine 1.7 H 1.6 H Glucose 114 H Calcium 8.4 L 8.5 L AST 32 H Lactate Dehydrogenase 340 H 362 H Globulin 3.9 H Albumin/Globulin Ratio 0.9 L 0.8 L 03/06/22 03/05/22 03/05/22 08:04 06:00 06:00 WBC 13.2 H 14.7 H RDW 15.0 H 14.9 H Immature Gran % (Auto) 0.7 H Immature Gran # 0.09 H 0.08 H Absolute Neutrophils 9.77 H 11.19 H Carbon Dioxide 21 L BUN 25 H Creatinine 1.7 H Glucose 116 H Calcium AST Lactate Dehydrogenase Globulin Albumin/Globulin Ratio Meds: Medications Acetaminophen (Acetaminophen 325 Mg Tablet) 650 mg PO Q6HP PRN; Protocol PRN Reason: Per Pain Protocol/Fever > 101 Last Admin: 03/07/22 19:55 Dose: 650 mg Albuterol/Ipratropium (Ipratropium/Albuterol 3 Ml Ampul.Neb) 3 ml NEB Q4HRT PRN PRN Reason: Wheezing Amlodipine Besylate (Amlodipine 10 Mg Tablet) 10 mg PO DAILY [facility] Last Admin: 03/07/22 08:32 Dose: 10 mg Carvedilol (Carvedilol 12.5 Mg Tablet) 25 mg PO BID [facility] Last Admin: 03/07/22 20:23 Dose: 25 mg Enoxaparin Sodium (Enoxaparin 30 Mg/0.3 Ml Syringe) 30 mg SQ DAILY [facility] Last Admin: 03/07/22 08:31 Dose: 30 mg Hydralazine HCl (Hydralazine 20 Mg/Ml Vial) 0 mg IV Q2HP PRN PRN Reason: Hypertension Last Admin: 03/08/22 04:47 Dose: 10 mg Levofloxacin (Levaquin) 750 mg in 150 mls @ 100 mls/hr IV Q48H [facility] Last Infusion: 03/06/22 13:00 Dose: Infused Labetalol HCl (Labetalol 5 Mg/Ml Ml) 0 mg IV Q2HP PRN PRN Reason: Hypertension Levothyroxine Sodium (Levothyroxine 100 Mcg Vial) 100 mcg IV QAMAC [facility] Last Admin: 03/07/22 08:31 Dose: 100 mcg Lorazepam (Lorazepam 1 Mg Tablet) 1 mg PO Q8HP PRN PRN Reason: Anxiety Last Admin: 03/07/22 15:38 Dose: 1 mg Melatonin (Melatonin 3 Mg Tablet) 3 mg PO QHS [facility] Last Admin: 03/07/22 20:38 Dose: 3 mg Morphine Sulfate (Morphine 4 Mg/Ml Vial) 4 mg IV Q4HP PRN; Protocol PRN Reason: Per Pain Protocol Last Admin: 03/07/22 16:12 Dose: 2 mg Nicotine (Nicotine 14 Mg Patch) 14 mg TOPICAL DAILY@1000 [facility] Last Admin: 03/07/22 12:29 Dose: 14 mg Olanzapine (Olanzapine 5 Mg Tablet) 5 mg PO HSP PRN PRN Reason: Agitation Last Admin: 03/07/22 20:38 Dose: 5 mg Ondansetron HCl (Ondansetron 4 Mg/2 Ml Vial) 4 mg IV Q6HP PRN PRN Reason: Nausea And Vomiting Sodium Chloride (0.9 % Sodium Chloride 10 Ml Syringe) 10 ml IV Q8 [facility] Last Admin: 03/08/22 00:06 Dose: 10 ml Trazodone HCl (Trazodone Hcl 50 Mg Tablet) 50 mg PO HS [facility] Last Admin: 03/07/22 19:55 Dose: 50 mg A/P Narrative A/P Narrative: Assessment and Plans: *Mild ileus: resolved -Dr. Summers following -diet started *Encephalopathy/Acute delirium/flat affect: 2/2 UTI + likely psych + ?hypothyroid: waxes/wanes, improving -Continue to monitor, -CT brain mild atrophy and chronic ischemic changes. No acute findings. *Cognitive impairment/dementia vs Psych -telepsych eval *Hypertensive urgency: resolved -Likely 2/2 methamphetamine abuse -Resume oral norvasc/coreg, Hydralazine IV PRN -clarify home meds *severe Hypothyroidism: 2/2 medication noncompliance -tsh>100, T4<0.10 ; possibly contributing to AMS -restart synthroid IV for now, patient states she does not take regularly at home *?POLY on CKD IIIb: -s/p IVF, monitor *UTI(Klebsiella oxytocin): -levaquin -leukocytosis improving *h/o DVT:was on eliqius in past, not on anymore *Tobacco abuse: Smoking cessation counseling *Generalized weakness/deconditioning: -PT/OT -CM for placement *ppx: lovenox Time Spent With Patient Time: Total time spent is greater than 50% in coordination of care (as documented) at patient's floor/unit and/or counseling patient: Subsequent: Total time with patient: 35 - 49 minutes QUALITY Stroke Symptom Onset Unknown: No VTE Deep Vein Thrombosis/Pulmonary Embolism Present on Admission: No
[2022-03-08] MEDS: LEVOTHYROXINE 100 MCG VIAL IV SCH (08:14)
[2022-03-08] MEDS: GABAPENTIN 100 MG CAPSULE PO SCH ×3 (08:15→21:25)
[2022-03-08] MEDS: LEVOFLOXACIN 750 MG/150 ML BAG IV SCH (08:15)
[2022-03-08] MEDS: amLODIPine 10 MG TABLET PO SCH (08:15)
[2022-03-08] MEDS: CARVEDILOL 12.5 MG TABLET PO SCH ×2 (08:15→21:25)
[2022-03-08] MEDS: ENOXAPARIN 30 MG/0.3 ML SYRINGE SQ SCH (08:15)
--- NOTE | 2022-03-08 10:26 | General Surgery Progress Note ---
SUBJECTIVE Subjective Patient information: Note initiated : 03/08/22 at 10:21 am Service Date, if different from initiated Date: [] Patient: Jennifer Alvarado 67 y/o F admitted on 03/06/22 for ABD PAIN. Chief Complaint: [] Continues to have good stomal function without significant issue despite mucosal congestive and ischemic changes Constitutional Vitals: Vital Signs Temp Pulse Resp BP Pulse Ox O2 Del Method O2 Flow Rate 97.0 F 71 16 124/85 95 Room Air 96 03/08/22 08:00 03/08/22 08:00 03/08/22 08:00 03/08/22 08:00 03/08/22 08:00 03/08/22 08:00 03/06/22 19:00 Period Temp Pulse Resp BP Sys/Blanco Pulse Ox O2 Del Method O2 Flow Rate Last 24 Hr 97.0 F-98.3 F 66-79 16-20 96-124/72-96 94-100 Room Air-Room Air Intake and Output 03/07/22 03/08/22 03/08/22 19:59 03:59 11:59 Intake Total 1080 240 350 Output Total 850 550 Balance 230 240 -200 Weight 139 lb 6.4 oz 137 lb Intake & Output: Intake & Output 03/07/22 03/08/22 03/08/22 19:59 03:59 11:59 Intake Total 1080 240 350 Output Total 850 550 Balance 230 240 -200 Weight 139 lb 6.4 oz 137 lb Intake: Oral 1080 240 350 Output: Urine Catheter Amount 400 350 Stool 450 200 Other: Meal Chocolate ice cream [place] ice cream, egg salad and crackers Percent of Meal Consumed 50% 100% Feeding Ability Independent Independent Urine Appearance Clear Clear Uretheral (Orellana) Clear Clear Urine Color Yellow Yellow Uretheral (Orellana) Yellow Yellow Stool Size Small Stool Color Brown Brown Stool Consistency Liquid Loose GI/Abdominal Additional comments: ostomy is examined at bedside with nursing, stomal cover is removed to examine the stoma which appears much softer and less congested and/or swollen. There is no surrounding peristomal cellulitis or swelling A/P Assessment and plan (1) Prolapse of stoma: Assessment and plan: Stomal Prolapse with congestion and some ischemia Overall appearance looks much improved and the stomal base is pink and viable Continue current mgmt for now, this seems to be resolving and it seems less likely that any operative intervention will be required Status: Acute Time Spent With Patient Time: Total time spent is greater than 50% in coordination of care (as documented) at patient's floor/unit and/or counseling patient:
[2022-03-08] MEDS: NICOTINE 14 MG PATCH TOPICAL SCH (10:51)
[2022-03-08] MEDS: MELATONIN 3 MG TABLET PO SCH (21:26)
[2022-03-08] MEDS: traZODone HCL 50 MG TABLET PO SCH (21:26)
--- NOTE | 2022-03-09 08:01 | Internal Med Progress Note ---
SUBJECTIVE Subjective Patient information: Note initiated : 03/09/22 at 8:00 am Service Date, if different from initiated Date: [] Patient: Jennifer Alvarado a 67 y/o F admitted on 03/06/22 for ABD PAIN. Chief Complaint: [] Interval history: Ms. Alvarado is a 67 year old F status post ostomy bag placement, history of DVT on Eliquis, hypothyroidism, methamphetamine abuse, presenting with abdominal pain. The following history is severely limited by patient's clinical situations. ED doctor performed CT abdomen pelvis showing signs of ileus. He called outside hospital requesting consult with the surgeon who placed the ostomy bag but they stated this is not his surgical case and refused to take the patient. An NG tube was attempted to be placed but x-ray showing it was in the wrong position so it was subsequently withdrawal. Dr. Browne recommended do not try to reinsert insert an NG tube. Ostomy bag placement has blood-tinged. Patient's found to be tested positive for methamphetamine as well as cannabis from her urine drug screen. She also have elevated blood pressure initially with a systolic blood pressure above 200 and subsequently resolved after rounds of IV hydralazine given. Patient could not be discharged from ED to home due to delirium secondary to substance abuse. Admission request is called for observations until patient's mentation is back to the baseline. 03/05: There was no major overnight events. Patient is complaining of 10 out of 10 diffuse, sharp, constant abdominal pain. She is complain of nausea but no vomit ing. She is stating that she is hungry. We will continue to provide narcotics and antiemetics for symptoms control. We will continue IV fluid infusion for now. We will check with general surgeon Dr. Summers regarding the timing to start feeding the patient. 03/06 Patient mentation is improved from admit but still with some intermittent mild confusion. She does feel. She states very weak feels a little bit worse than yesterday but cannot explain how. She complains of headache. She has no more bleeding via her ostomy. Synthroid was restarted and she admits that she does not take it very often which is also reflected in her severely abnormal thyroid function labs. Urine culture grew Klebsiella oxytocin and will start antibiotics. Mild improvement in leukocytosis. Renal function similar to yesterday may be a touch better. 03/07 Patient slept all right per nursing. Patient drowsy this morning similar to yesterday. But does answer questions appropriately. She was agitated yesterday evening and did get Zyprexa. Leukocytosis improving. Renal function stable suspect this might be her baseline. 03/08 Patient ambulated in esteves yesterday fairly well. Patient with flat affect in th e morning and poorly communicative. Patient likely benefit from psych eval. was agitated last night, Difficulty in sleeping. 03/09 Patient more alert and awake this morning than she usually is in the morning. She complains of upset stomach. And a headache. She says she is felt crummy ever since she had her colostomy placed months ago. Review of Systems: denies fever/chills/nausea/vomiting/chest pain/cough/dyspnea/diarrhea. Otherwise see above. Constitutional Vitals: Vital Signs Temp Pulse Resp BP Pulse Ox O2 Del Method O2 Flow Rate 97.4 F 71 16 93/66 93 Room Air 96 03/09/22 07:24 03/09/22 07:24 03/09/22 07:24 03/09/22 07:24 03/09/22 07:24 03/09/22 07:24 03/06/22 19:00 Period Temp Pulse Resp BP Sys/Blanco Pulse Ox O2 Del Method O2 Flow Rate Last 24 Hr 96.9 F-97.9 F 64-71 12-16 84-132/58-85 93-96 Room Air-Room Air Intake and Output 03/08/22 03/09/22 03/09/22 19:59 03:59 11:59 Intake Total 300 290 480 Output Total 400 475 Balance -100 -185 480 Weight 62.051 kg Intake & Output: Intake & Output 03/08/22 03/09/22 03/09/22 19:59 03:59 11:59 Intake Total 300 290 480 Output Total 400 475 Balance -100 -185 480 Weight 62.051 kg Intake: Oral 300 290 480 Output: Urine Catheter Amount 175 Void Amount 250 Stool 150 300 Other: Meal Dinner Egg salad sandwich Percent of Meal Consumed 25% 100% Feeding Ability Total Assistance Independent Urine Appearance Clear Clear Uretheral (Orellana) Clear Clear Urine Color Yellow Dark Yellow Uretheral (Orellana) Yellow Yellow Stool Size Moderate Stool Color Brown Brown Brown Yellow Stool Consistency Loose Loose Loose Exam: General: Awake, no acute Distress, very weak Eyes/N/T: EOMI, Head/Neck: neck supple, CV: RRR, No murmurs, Pulm: Clear b/l, no wheezing/rhonchi/rales Abd: soft, nontender, +BS x4, Ostomy in place Ext: no clubbing/cyanosis/edema Neuro: awake Weak, no focal deficits, moves all extremities, Skin: warm/dry Psych: flat affect OBJ DATA Labs 03/07/22 06:08 03/07/22 06:08 Labs: Abnormal Lab Results 03/07/22 03/07/22 03/06/22 06:08 06:08 08:04 WBC 11.1 H RDW 14.8 H Immature Gran % (Auto) 1.2 H Immature Gran # 0.13 H Absolute Neutrophils Carbon Dioxide 20 L 20 L Creatinine 1.7 H 1.6 H Glucose 114 H Calcium 8.4 L 8.5 L AST 32 H Lactate Dehydrogenase 340 H 362 H Globulin 3.9 H Albumin/Globulin Ratio 0.9 L 0.8 L 03/06/22 08:04 WBC 13.2 H RDW 15.0 H Immature Gran % (Auto) 0.7 H Immature Gran # 0.09 H Absolute Neutrophils 9.77 H Carbon Dioxide Creatinine Glucose Calcium AST Lactate Dehydrogenase Globulin Albumin/Globulin Ratio Meds: Medications Acetaminophen (Acetaminophen 325 Mg Tablet) 650 mg PO Q6HP PRN; Protocol PRN Reason: Per Pain Protocol/Fever > 101 Last Admin: 03/07/22 19:55 Dose: 650 mg Albuterol/Ipratropium (Ipratropium/Albuterol 3 Ml Ampul.Neb) 3 ml NEB Q4HRT PRN PRN Reason: Wheezing Amlodipine Besylate (Amlodipine 10 Mg Tablet) 10 mg PO DAILY [facility] Last Admin: 03/08/22 08:15 Dose: 10 mg Carvedilol (Carvedilol 12.5 Mg Tablet) 25 mg PO BID [facility] Last Admin: 03/08/22 21:25 Dose: 25 mg Enoxaparin Sodium (Enoxaparin 30 Mg/0.3 Ml Syringe) 30 mg SQ DAILY [facility] Last Admin: 03/08/22 08:15 Dose: 30 mg Gabapentin (Gabapentin 100 Mg Capsule) 100 mg PO TID [facility] Last Admin: 03/08/22 21:25 Dose: 100 mg Hydralazine HCl (Hydralazine 20 Mg/Ml Vial) 0 mg IV Q2HP PRN PRN Reason: Hypertension Last Admin: 03/08/22 04:47 Dose: 10 mg Levofloxacin (Levaquin) 750 mg in 150 mls @ 100 mls/hr IV Q48H [facility] Last Infusion: 03/08/22 10:46 Dose: Infused Labetalol HCl (Labetalol 5 Mg/Ml Ml) 0 mg IV Q2HP PRN PRN Reason: Hypertension Levothyroxine Sodium (Levothyroxine 100 Mcg Vial) 100 mcg IV QAMAC [facility] Last Admin: 03/08/22 08:14 Dose: 100 mcg Lorazepam (Lorazepam 1 Mg Tablet) 1 mg PO Q8HP PRN PRN Reason: Anxiety Last Admin: 03/07/22 15:38 Dose: 1 mg Melatonin (Melatonin 3 Mg Tablet) 3 mg PO QHS [facility] Last Admin: 03/08/22 21:26 Dose: Not Given Morphine Sulfate (Morphine 4 Mg/Ml Vial) 4 mg IV Q4HP PRN; Protocol PRN Reason: Per Pain Protocol Last Admin: 03/07/22 16:12 Dose: 2 mg Nicotine (Nicotine 14 Mg Patch) 14 mg TOPICAL DAILY@1000 [facility] Last Admin: 03/08/22 10:51 Dose: 14 mg Olanzapine (Olanzapine 5 Mg Tablet) 5 mg PO HSP PRN PRN Reason: Agitation Last Admin: 03/07/22 20:38 Dose: 5 mg Ondansetron HCl (Ondansetron 4 Mg/2 Ml Vial) 4 mg IV Q6HP PRN PRN Reason: Nausea And Vomiting Last Admin: 03/08/22 08:54 Dose: 4 mg Sodium Chloride (0.9 % Sodium Chloride 10 Ml Syringe) 10 ml IV Q8 [facility] Last Admin: 03/08/22 21:25 Dose: 10 ml Trazodone HCl (Trazodone Hcl 50 Mg Tablet) 50 mg PO HS [facility] Last Admin: 03/08/22 21:26 Dose: Not Given A/P Narrative A/P Narrative: Assessment and Plans: *Mild ileus: resolved -Dr. Summers following -tolerating diet *Encephalopathy/Acute delirium/flat affect: 2/2 UTI + likely psych + ?hypothyroid: waxes/wanes, improving -Continue to monitor, -CT brain mild atrophy and chronic ischemic changes. No acute findings. *Cognitive impairment/dementia vs Psych -telepsych eval *Hypertensive urgency: resolved -Likely 2/2 methamphetamine abuse -Resume oral norvasc/coreg, Hydralazine IV PRN *severe Hypothyroidism: 2/2 medication noncompliance -tsh>100, T4<0.10 ; possibly contributing to AMS -restart synthroid IV for now, patient states she does not take regularly at home *?POLY on CKD IIIb: -s/p IVF, monitor *UTI(Klebsiella oxytocin): -levaquin -leukocytosis improving *h/o DVT:was on eliqius in past, not on anymore *Tobacco abuse: Smoking cessation counseling *Generalized weakness/deconditioning: -PT/OT -CM for placement *ppx: lovenox Time Spent With Patient Time: Total time spent is greater than 50% in coordination of care (as documented) at patient's floor/unit and/or counseling patient: Subsequent: Total time with patient: 35 - 49 minutes QUALITY Stroke Symptom Onset Unknown: No VTE Deep Vein Thrombosis/Pulmonary Embolism Present on Admission: No
[2022-03-09] MEDS: LEVOTHYROXINE 100 MCG VIAL IV SCH (08:05)
[2022-03-09] MEDS: 0.9 % SODIUM CHLORIDE 10 ML SYRINGE IV SCH ×3 (08:05→20:17)
[2022-03-09] MEDS: ENOXAPARIN 30 MG/0.3 ML SYRINGE SQ SCH (08:05)
[2022-03-09] MEDS: morphine 4 MG/ML VIAL IV PRN ×4 (08:15→17:10)
[2022-03-09] MEDS: amLODIPine 10 MG TABLET PO SCH (09:31)
[2022-03-09] MEDS: CARVEDILOL 12.5 MG TABLET PO SCH ×2 (09:34→20:17)
[2022-03-09] MEDS: NICOTINE 14 MG PATCH TOPICAL SCH (09:34)
[2022-03-09] MEDS: HYDROcodone/APAP 5/325MG TABLET PO PRN ×3 (10:46→20:16)
[2022-03-09 11:24] LABS: ALT/SGPT 12 U/L (<40); AST/SGOT 22 U/L (<32); Albumin 3.1 gm/dL (3.2-5.2); Albumin/Globulin Ratio 0.8 (1.0-2.3); Alkaline Phosphatase 63 U/L (39-117); Bilirubin,Direct < 0.2 mg/dL (0-0.3); Bilirubin,Total 0.3 mg/dL (0.1-1.0); Blood Urea Nitrogen 24 mg/dL (8-23); Calcium 8.8 mg/dL (8.6-10.4); Carbon Dioxide 18 mmol/L (22-30); Chloride 99 mmol/L (96-108); Glomerular Filtration Rate 29; Glucose 88 mg/dL (70-105); Lactate Dehydrogenase 295 U/L (135-225); Phosphorous 2.6 mg/dL (2.5-4.5); Triglycerides 188 mg/dL (<150); Uric Acid 6.7 mg/dL (2.5-8.0)
[2022-03-09] MEDS: LORazepam 1 MG TABLET PO PRN (11:38)
--- NOTE | 2022-03-09 11:39 | Discharge Summary ---
Discharge Provider Provider IMPORTANT FOLLOW-UP INFORMATION FOR PCP: Patient information: Note initiated : 03/09/22 at 11:33 am Service Date, if different from initiated Date: [] Patient: Jennifer Alvarado 67 y/o F admitted on 03/06/22 for ABD PAIN. Chief Complaint: [] Date of admission: 03/06/22 13:45 Primary care physician: Ambreen Braden Consults: 03/04/22 Consult to Physician [CONS] Stat Comment: Consulting Provider: Kahlil Weiss Reason For Exam: Physician to Consult Consult to Physician [CONS] Stat Comment: Consulting Provider: Phil Summers Reason For Exam: Physician to Consult 03/08/22 09:30 Consult to Physician [CONS] Routine Comment: Consulting Provider: [facility] Reason For Exam: Physician to Consult COURSE Hospital Course Hospital course: Assessment: *Mild ileus: resolved *Mucosal congestion/ischemic changes: per surgery. improving *Encephalopathy/Acute delirium/flat affect: 2/2 UTI + likely psych + ?hypothyroid: *Cognitive impairment/dementia vs Psych -telepsych eval *Hypertensive urgency: resolved *severe Hypothyroidism: 2/2 medication noncompliance -tsh>100, T4<0.10 ; possibly contributing to AMS *?POLY on CKD IIIb: *UTI(Klebsiella oxytocin): *h/o DVT:was on eliqius in past, not on anymore *Tobacco abuse: Smoking cessation counseling *Substance Abuse: amphetamines *Generalized weakness/deconditioning: Discharge diagnosis: Ileus ostomy congestion Encephalopathy UTI Secondary discharge diagnosis: Psychiatric eval hypertension hypothyroidism chronic kidney disease history of DVT tobacco abuse substance abuse Time Spent with Patient Time attestation: Total time spent providing and/or coordinating discharge services: Time spent: Greater than 30 minutes EXAM Constitutional Vitals: Temp Pulse Resp BP Pulse Ox O2 Del Method O2 Flow Rate 97.4 F 71 16 93/66 93 Room Air 96 03/09/22 07:24 03/09/22 07:24 03/09/22 07:24 03/09/22 07:24 03/09/22 07:24 03/09/22 07:24 03/06/22 19:00 Discharge Data Data Completed and Pending Labs on day of discharge: Labs from last 24 hours 03/09/22 10:14 Sodium 130 L Potassium 3.9 Chloride 99 Carbon Dioxide 18 L Anion Gap 13.0 BUN 24 H Creatinine 1.8 H GFR Calculation 29 Glucose 88 Uric Acid 6.7 Calcium 8.8 Phosphorus 2.6 Magnesium 1.7 Total Bilirubin 0.3 Direct Bilirubin < 0.2 GGT 13 AST 22 ALT 12 Alkaline Phosphatase 63 Lactate Dehydrogenase 295 H Total Protein 7.1 Albumin 3.1 L Globulin 4.0 H Albumin/Globulin Ratio 0.8 L Triglycerides 188 H Discharge Plan Patient/Caregiver Discharge Instructions Activity: increase activity as tolerated Diet: Regular Diet Prescriptions: Continued albuterol sulfate [ProAir HFA] 90 mcg/actuation HFA aerosol inhaler 2 puff INHALATION .Q4-6H gabapentin 100 mg capsule 100 mg PO TID Eliquis DVT-PE Treat 30D Start 5 mg (74 tabs) tablets,dose pack 5 mg PO ONCE Qty: 74 0RF Rx Instructions: Take 10 mg twice daily for 7 days and then 5 mg twice daily for the next 3 weeks. Eliquis 5 mg tablet 5 mg PO BID Qty: 60 0RF carvedilol 25 mg tablet 25 mg PO BID lorazepam 1 mg tablet 1 mg PO Q8HP PRN (Reason: Anxiety) levothyroxine 100 mcg tablet 100 mcg PO DAILY trazodone 50 mg tablet 50 mg PO DAILY Discontinued amlodipine 10 mg tablet 10 tab PO DAILY Follow Up Plan Follow up with: Ambreen Braden MD [Primary Care Provider] - Patient Disposition: Xfer SNF Prognosis: Fair Rehab Potential: Fair I certify that the patient requires SNF services: Yes Overall status at discharge: patient is progressing back to baseline QUALITY VTE Deep Vein Thrombosis/Pulmonary Embolism Present on Admission: No
[2022-03-09] MEDS: SODIUM BICARBONATE 650 MG TABLET PO SCH ×3 (12:27→23:19)
[2022-03-09] MEDS ORDERED: CARVEDILOL 12.5 MG TABLET PO SCH (17:30)
[2022-03-09] MEDS: traZODone HCL 50 MG TABLET PO SCH (20:16)
[2022-03-09] MEDS: MELATONIN 3 MG TABLET PO SCH (20:17)
--- NOTE | 2022-03-09 22:39 | Behavioral Health Consult ---
HPI History of Present Illness Patient information: Note initiated : 03/09/22 at 10:32 pm Service Date, if different from initiated Date: [] Patient: Jennifer Alvarado 67 y/o F admitted on 03/06/22 for ABD PAIN. Chief Complaint: [] History of present illness: Name: Jennifer Chaidez: 1955 DateandTime: 03/09/2022 8:03:05 PM Location of the patient: [facility] IPLocation of the doctor: alistair Length of consult: 20 minutes This evaluation was conducted via video telepsychiatry with the assistance of onsite staff Reason for consult: AMS, delirium, drug use Requested by: VALENTIN Gonzales History of Present Illness: Ms. Alvarado is a 67 year old F status post ostomy bag placement, history of DVT on Eliquis, hypothyroidism, methamphetamine abuse, presenting with abdominal pain. During the interview patient was pleasant and cooperative but disoriented and confusedPatient was not able to engage in a meaningful rational reasonable conversation with this examinerPatient was not able to make rational decisions for a welfare at this current timePatient was in acute delirium because of multifactorial etiologyPatient had toxic metabolic encephalopathyPatient is agreeable to go to a fpc facility or post acute care facility upon medical stabilization for further welfare stabilization safety and recoveryThe following history is severely limited by patient's clinical situations. ED doctor performed CT abdomen pelvis showing signs of ileus. He called outside hospital requesting consult with the surgeon who placed the ostomy bag but they stated this is not his surgical case and refused to take the patient. An NG tube was attempted to be placed but x-ray showing it was in the wrong position so it was subsequently withdrawal. Dr. Browne recommended do not try to reinsert insert an NG tube. Ostomy bag placement has blood-tinged. Patient's found to be tested positive for methamphetamine as well as cannabis from her urine drug screen. She also have elevated blood pressure initially with a systolic blood pressure above 200 and subsequently resolved after rounds of IV hydralazine given. Patient could not be discharged from ED to home due to delirium secondary to substance abuse. Collateral Contacted: Jane for not contacting the collateral:None available Sleep issues?: YesSleep Quantity:Sleep Quality:Pt reports poor sleep but has been sleeping excessively since admission per RN. Psychiatric History/Treatment History: Past diagnoses: PTSD, Anxiety, Panic Disorder Hospitalizations: No Current Treatment:YesMedication management:YesMedications:Pt reportedly RX'd lorazepam and Trazodone by local clinic but reports she is out of meds. Therapy:No Suicide Assessment: PSS-3: 1) Over the past 2 weeks have you felt down, depressed or hopeless?Yes 2) Over the past 2 weeks have you had thoughts of killing yourself?No 3) Have you ever in your life attempted to kill yourself?No Within the past 6 months? [facility] Safety Assessment: Risk Factors Stressors: Health problems, financial Attempts/Self-injury: No Impulsivity:Unknown-NA Drug/Alcohol History:YesDescription:UDS +methamphetamine Trauma History:Unknown-NA Access to firearms:Unknown-NA HI/Violence/Property destruction:No Legal: Unknown-NA Family Psych History:Unknown-NA Family History of suicide:Unknown-NA Protective Factors: Can handle stress well?Unknown-NA Mandaen?Unknown-NA External: Social supports/ Therapeutic relationships: YesDescription:Friend, Venkata Relationship history: Living situation: in hotel with friend, Venkata Employment: No Education: Responsibility to family/children/work: No Future orientation:YesDescription:wants to return home Health History: Medical History: Acute delirium (Acute) Methamphetamine use (Acute) Marijuana use (Acute) Prolapse of stoma (Acute) Hypertensive urgency (Acute) Ileus (Acute) Gastrointestinal bleeding, upper (Acute) Acute alteration in mental status (Acute) Ileus (Acute) DVT (deep venous thrombosis) (Acute) Encounter for wound c are (Acute) Painless rectal bleeding (Acute) Leg wound, right (Acute) Head injury due to trauma (Acute) Fall (Acute) Opioid abuse with withdrawal (Acute) Laceration of scalp (Acute) H/O Angelique thyroiditis (Acute) Hypertension (Acute) Encounter for ostomy care education (Acute) Influenza-like symptoms (Acute) Abdominal pain (Acute) Unable to care for self (Acute) Acute dehydration (Acute) Colostomy malfunction (Acute) Encounter for long-term (current) use of medications (Chronic) Unintentional weight loss (Chronic) Stress at home (Chronic) PTSD (post-traumatic stress disorder) (Chronic) Laceration without foreign body of right ear, initial encounter (Chronic) Osteoarthritis (Chronic) Thyroid disorder (Chronic) Urine incontinence (Chronic) Bronchitis (Chronic) Asthma (Chronic) Fainting (Chronic) Dizziness (Chronic) Heart attack (Chronic) Shortness of breath (Chronic) Chest pain (Chronic) Headache (Chronic) Lupus (Chronic) History of hepatitis C (Chronic) Tobacco abuse (Chronic) Hypertension (Chronic) Neck pain, chronic (Chronic) Failure to gain weight in adult (Chronic) Actinic keratosis (Chronic) DDD (degenerative disc disease), cervical (Chronic) Vitamin D deficiency (Chronic) Angelique's thyroiditis (Chronic) Raynauds phenomenon (Chronic) Rib pain on right side (Chronic) Arthritis (Chronic) Elevated troponin (Acute) Hypothyroidism (Acute) Hypertensive urgency (Acute) Urinary tract infection (Acute) Myxedema (Acute) Medical History (Updated 03/04/22 @ 16:09 by Kahlil Weiss MD) Actinic keratosis Arthritis Asthma Bronchitis Chest pain DDD (degenerative disc disease), cervical Dizziness Elevated troponin Encounter for long-term (current) use of medications Failure to gain weight in adult Fainting Gout Angelique's thyroiditis Headache Heart attack History of hepatitis C Hypertension Hypertensive urgency Hypothyroidism Laceration without foreign body of right ear, initial encounter Lupus Myxedema Neck pain, chronic Osteoarthritis Peptic ulcer Poor sleep PTSD (post-traumatic stress disorder) Raynauds phenomenon Rib pain on right side Shortness of breath Stress at home Thyroid disorder Tobacco abuse Unintentional weight loss Urinary tract infection Urine incontinence Vitamin D deficiency Surgical History History of eye surgery (~1960) Family History Mother , Medications & Freq: As per the medical records Allergies: See EMR Mental Status Exam: Appearance and Attire:Normal Psychomotor agitation:No abnormality Attitude and behavior:Cooperative Speech:No abnormality, Mood:Euthymic Affect:Full range of affect Thought process:Linear, Logical Thought content:No abnormality Perception:Within normal limits Intel:Above average Abstract:Appropriate Language:No abnormality Orientation:Oriented x 4, Grossly oriented Sense:Normal Knowledge:Appropriate for education and socioeconomic status Memory:Intact Insight:Appropriate Judgement:Appropriate Gait:No abnormality Impression/Risk Assessment: Current Suicide Risk Elevated?No Current Violence Risk Elevated?No Issues with ability to care for self?Yes Summary: Patient was consulted for acute mental status changes, acute confusion, acute delirium, toxic metabolic encephalopathy of multifactorial etiology Once medically stabilized patient will benefit from fpc facility or post acute care facility for overall stabilization welfare recovery and stenting of this patient Patient is agreeable to go to the next level of care as suggested by the manager social and case packer of the multidisciplinary treatment Diagnosis: 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, 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 CPT Codes: 32933 - Psychiatric Diagnostic Evaluation with Medical Services Treatment Plan: General: Acute delirium, acute mental status changes, resolving Toxic metabolic encephalopathy, resolving Mood disorder due to general medical condition Level of Care: Patient will benefit from a post acute care facility or fpc facility once medically stabilized during this hospitalization Psychiatric Clearance: Yes Observation level 1:1 needed?: YesNotes:For overall safety and fall precautions Pharmacological: Continue current regimen of medication as listed in the medical administration record No further psychotropic medication to be added until the mental status clears Patient psychotic?No Therapy: Supportive Follow up needed while in the hospital?: YesNumber of times:Every 2-3 days until transfer to a next level of care a fpc facility or post acute care facility Discussed plan with onsite steam shovel runner: Yes Who Registered nurse Ms. Angulo on duty for this patient [facility] All Active Problems (Updated 03/04/22 @ 16:09 by Kahlil Weiss MD) Acute delirium (Acute) Methamphetamine use (Acute) Marijuana use (Acute) Prolapse of stoma (Acute) Hypertensive urgency (Acute) Ileus (Acute) Gastrointestinal bleeding, upper (Acute) Acute alteration in mental status (Acute) Ileus (Acute) DVT (deep venous thrombosis) (Acute) Encounter for wound care (Acute) Painless rectal bleeding (Acute) Leg wound, right (Acute) Head injury due to trauma (Acute) Fall (Acute) Opioid abuse with withdrawal (Acute) Laceration of scalp (Acute) H/O Angelique thyroiditis (Acute) Hypertension (Acute) Encounter for ostomy care education (Acute) Influenza-like symptoms (Acute) Abdominal pain (Acute) Unable to care for self (Acute) Acute dehydration (Acute) Colostomy malfunction (Acute) Encounter for long-term (current) use of medications (Chronic) Unintentional weight loss (Chronic) Stress at home (Chronic) PTSD (post-traumatic stress disorder) (Chronic) Laceration without foreign body of right ear, initial encounter (Chronic) Osteoarthritis (Chronic) Thyroid disorder (Chronic) Urine incontinence (Chronic) Bronchitis (Chronic) Asthma (Chronic) Fainting (Chronic) Dizziness (Chronic) Heart attack (Chronic) Shortness of breath (Chronic) Chest pain (Chronic) Headache (Chronic) Lupus (Chronic) History of hepatitis C (Chronic) Tobacco abuse (Chronic) Hypertension (Chronic) Neck pain, chronic (Chronic) Failure to gain weight in adult (Chronic) Actinic keratosis (Chronic) DDD (degenerative disc disease), cervical (Chronic) Vitamin D deficiency (Chronic) Angelique's thyroiditis (Chronic) Raynauds phenomenon (Chronic) Rib pain on right side (Chronic) Arthritis (Chronic) Elevated troponin (Acute) Hypothyroidism (Acute) Hypertensive urgency (Acute) Urinary tract infection (Acute) Myxedema (Acute) Medical History (Updated 03/04/22 @ 16:09 by Kahlil Weiss MD) Actinic keratosis Arthritis Asthma Bronchitis Chest pain DDD (degenerative disc disease), cervical Dizziness Elevated troponin Encounter for long-term (current) use of medications Failure to gain weight in adult Fainting Gout Angelique's thyroiditis Headache Heart attack History of hepatitis C Hypertension Hypertensive urgency Hypothyroidism Laceration without foreign body of right ear, initial encounter Lupus Myxedema Neck pain, chronic Osteoarthritis Peptic ulcer Poor sleep PTSD (post-traumatic stress disorder) Raynauds phenomenon Rib pain on right side Shortness of breath Stress at home Thyroid disorder Tobacco abuse Unintentional weight loss Urinary tract infection Urine incontinence Vitamin D deficiency Surgical History History of eye surgery (~1960) Family History Mother , age 73 cancer and heart failure Glaucoma Thyroid disease Kidney disease Hypertension Heart disease Diabetes Asthma Arthritis Father Glaucoma Cancer Thyroid disease Hypertension Diabetes Arthritis Grandmother Cancer Maternal Thyroid disease Maternal Hypertension Maternal Heart disease Maternal Diabetes Maternal Arthritis Maternal Stroke Paternal Grandfather Cancer Maternal Arthritis Maternal Stroke Paternal Brother Heroin addiction Other Family history of drug abuse Family history of mental disorder Social History (Updated 12/21/18 @ 11:23 by ANDREW Nava) household members: significant other housing: apartment marital status: leisure activities: hunting and fishing physical activity: walking duration: other details: 4-5 times a week smoking status: Current every day smoker alcohol intake frequency: does not drink substance use type: does not use seatbelt use: sometimes MEDS/ALLERGIES Home Medications and Allergies Home Medications Medication Instructions Recorded Confirmed Type albuterol sulfate 90 mcg/actuation 2 puff inhalation .Q4-6H 03/03/17 03/08/22 History aerosol inhaler (ProAir HFA) gabapentin 100 mg capsule 100 mg PO TID 10/05/18 03/08/22 History apixaban 5 mg (74 tabs) tablets in 5 mg PO ONCE #74 tabs 03/14/21 03/08/22 Rx a dose pack (Eliquis DVT-PE Treat 30D Start) apixaban 5 mg tablet (Eliquis) 5 mg PO BID #60 tabs 04/28/21 03/08/22 Rx carvedilol 25 mg PO BID 03/05/22 03/05/22 History levothyroxine 100 mcg PO DAILY 03/05/22 03/05/22 History lorazepam 1 mg PO Q8HP PRN Anxiety 03/05/22 03/05/22 History trazodone 50 mg PO DAILY 03/05/22 03/05/22 History Allergies Allergy/AdvReac Type Severity Reaction Status Date / Time codeine Allergy Unknown Verified 02/02/22 12:53 prochlorperazine Allergy Unknown Verified 02/02/22 12:53 [From Compazine] pseudoephedrine Allergy Unknown Verified 02/02/22 12:53 [From Sudafed] Physical Examination Vital Signs Vital signs: Temp Pulse Resp BP Pulse Ox O2 Del Method O2 Flow Rate 97.6 F 76 16 124/75 94 Room Air 96 03/09/22 15:49 03/09/22 15:49 03/09/22 15:49 03/09/22 15:49 03/09/22 15:49 03/09/22 15:49 03/06/22 19:00 Results Laboratory Findings 03/07/22 06:08 03/09/22 10:14 Abnormal lab findings: Abnormal Labs 03/04/22 03/04/22 03/04/22 01:40 01:40 01:40 WBC RDW 14.9 H Immature Gran % (Auto) 0.8 H Immature Gran # 0.08 H Absolute Neutrophils POC VBG pH POC VBG pCO2 at Temp POC VBG pO2 POC VBG HCO3 POC VBG Total CO2 POC Venous O2 Sat POC VBG Base Excess Sodium Carbon Dioxide POC BUN BUN Creatinine POC Creatinine Glucose Calcium POC WB Ioniz Calcium AST 41 H Lactate Dehydrogenase Total Creatine Kinase CK-MB (CK-2) Albumin Globulin 4.6 H Albumin/Globulin Ratio Triglycerides Amylase 149 H Lipase 61 H Procalcitonin 0.11 H TSH Free T4 Urine Protein Urine Occult Blood Urine Nitrate Urine WBC Urine Bacteria Hyaline Casts Urine Mucus Ur Amphetamines Screen U Marijuana (THC) Screen 03/04/22 03/04/22 03/04/22 01:55 08:00 08:29 WBC RDW Immature Gran % (Auto) Immature Gran # Absolute Neutrophils POC VBG pH 7.54 H POC VBG pCO2 at Temp 23.0 L POC VBG pO2 73 H POC VBG HCO3 19.6 L POC VBG Total CO2 20.0 L POC Venous O2 Sat 97.0 H POC VBG Base Excess -3.0 L Sodium Carbon Dioxide POC BUN 26 H BUN Creatinine POC Creatinine 1.8 H Glucose Calcium POC WB Ioniz Calcium 1.13 L AST Lactate Dehydrogenase Total Creatine Kinase CK-MB (CK-2) Albumin Globulin Albumin/Globulin Ratio Triglycerides Amylase Lipase Procalcitonin TSH > 100 H Free T4 < 0.10 L Urine Protein Urine Occult Blood Urine Nitrate Urine WBC Urine Bacteria Hyaline Casts Urine Mucus Ur Amphetamines Screen U Marijuana (THC) Screen 03/04/22 03/04/22 03/04/22 08:30 08:34 09:45 WBC RDW Immature Gran % (Auto) Immature Gran # Absolute Neutrophils POC VBG pH POC VBG pCO2 at Temp 38.4 L POC VBG pO2 POC VBG HCO3 22.3 L POC VBG Total CO2 23.0 L POC Venous O2 Sat POC VBG Base Excess -3.0 L Sodium Carbon Dioxide POC BUN BUN Creatinine POC Creatinine Glucose Calcium POC WB Ioniz Calcium AST Lactate Dehydrogenase Total Creatine Kinase 539 H CK-MB (CK-2) 17.4 H Albumin Globulin Albumin/Globulin Ratio Triglycerides Amylase Lipase Procalcitonin TSH Free T4 Urine Protein Urine Occult Blood Urine Nitrate Urine WBC Urine Bacteria Hyaline Casts Urine Mucus Ur Amphetamines Screen Suspect positive A U Marijuana (THC) Screen Suspect positive A 03/04/22 03/05/22 03/05/22 09:45 06:00 06:00 WBC 14.7 H RDW 14.9 H Immature Gran % (Auto) Immature Gran # 0.08 H Absolute Neutrophils 11.19 H POC VBG pH POC VBG pCO2 at Temp POC VBG pO2 POC VBG HCO3 POC VBG Total CO2 POC Venous O2 Sat POC VBG Base Excess Sodium Carbon Dioxide 21 L POC BUN BUN 25 H Creatinine 1.7 H POC Creatinine Glucose 116 H Calcium POC WB Ioniz Calcium AST Lactate Dehydrogenase Total Creatine Kinase CK-MB (CK-2) Albumin Globulin Albumin/Globulin Ratio Triglycerides Amylase Lipase Procalcitonin TSH Free T4 Urine Protein 100 A Urine Occult Blood Small A Urine Nitrate Positive A Urine WBC 11 H Urine Bacteria Many A Hyaline Casts 3 H Urine Mucus Few A Ur Amphetamines Screen U Marijuana (THC) Screen 03/06/22 03/06/22 03/07/22 08:04 08:04 06:08 WBC 13.2 H 11.1 H RDW 15.0 H 14.8 H Immature Gran % (Auto) 0.7 H 1.2 H Immature Gran # 0.09 H 0.13 H Absolute Neutrophils 9.77 H POC VBG pH POC VBG pCO2 at Temp POC VBG pO2 POC VBG HCO3 POC VBG Total CO2 POC Venous O2 Sat POC VBG Base Excess Sodium Carbon Dioxide 20 L POC BUN BUN Creatinine 1.6 H POC Creatinine Glucose 114 H Calcium 8.5 L POC WB Ioniz Calcium AST 32 H Lactate Dehydrogenase 362 H Total Creatine Kinase CK-MB (CK-2) Albumin Globulin 3.9 H Albumin/Globulin Ratio 0.8 L Triglycerides Amylase Lipase Procalcitonin TSH Free T4 Urine Protein Urine Occult Blood Urine Nitrate Urine WBC Urine Bacteria Hyaline Casts Urine Mucus Ur Amphetamines Screen U Marijuana (THC) Screen 03/07/22 03/09/22 06:08 10:14 WBC RDW Immature Gran % (Auto) Immature Gran # Absolute Neutrophils POC VBG pH POC VBG pCO2 at Temp POC VBG pO2 POC VBG HCO3 POC VBG Total CO2 POC Venous O2 Sat POC VBG Base Excess Sodium 130 L Carbon Dioxide 20 L 18 L POC BUN BUN 24 H Creatinine 1.7 H 1.8 H POC Creatinine Glucose Calcium 8.4 L POC WB Ioniz Calcium AST Lactate Dehydrogenase 340 H 295 H Total Creatine Kinase CK-MB (CK-2) Albumin 3.1 L Globulin 4.0 H Albumin/Globulin Ratio 0.9 L 0.8 L Triglycerides 188 H Amylase Lipase Procalcitonin TSH Free T4 Urine Protein Urine Occult Blood Urine Nitrate Urine WBC Urine Bacteria Hyaline Casts Urine Mucus Ur Amphetamines Screen U Marijuana (THC) Screen Microbiology: Microbiology 03/04/22 09:45 Urine - Catheterized Urine Culture - Final Klebsiella oxytoca A/P Time Spent With Patient Time: Total time spent is greater than 50% in coordination of care (as documented) at patient's floor/unit and/or counseling patient:
[2022-03-09] MEDS: OLANZapine 5 MG TABLET PO PRN (23:19)
[2022-03-10] MEDS ORDERED: LORazepam 2 MG/ML VIAL IV PRN (01:20)
[2022-03-10] MEDS ORDERED: HALOPERIDOL LACTATE 5 MG/ML VIAL IV ONE ×2 (01:22→04:03)
[2022-03-10] MEDS ORDERED: diphenhydrAMINE 50 MG/ML VIAL IV ONE (01:22)
[2022-03-10] MEDS ORDERED: diphenhydrAMINE 50 MG/ML VIAL ONE (01:25)
[2022-03-10] MEDS ORDERED: LORazepam 2 MG/ML VIAL ONE ×3 (01:26→05:46)
[2022-03-10] MEDS: morphine 4 MG/ML VIAL IV PRN ×3 (02:02→22:34)
[2022-03-10] MEDS ORDERED: HALOPERIDOL LACTATE 5 MG/ML VIAL ONE ×2 (02:56→04:04)
[2022-03-10] MEDS ORDERED: LORazepam 2 MG/ML VIAL IV ONE ×2 (03:22→05:44)
[2022-03-10] MEDS: 0.9 % SODIUM CHLORIDE 10 ML SYRINGE IV SCH ×3 (04:13→20:16)
[2022-03-10] MEDS ORDERED: LORazepam 2 MG/ML VIAL IM ONE (05:44)
[2022-03-10] MEDS ORDERED: OLANZapine 10 MG VIAL IM ONE (05:56)
[2022-03-10] MEDS: OLANZapine 10 MG VIAL IM SCH (06:01)
--- NOTE | 2022-03-10 07:28 | Internal Med Progress Note ---
SUBJECTIVE Subjective Patient information: Note initiated : 03/10/22 at 7:27 am Service Date, if different from initiated Date: [] Patient: Jennifer Alvarado a 67 y/o F admitted on 03/06/22 for ABD PAIN. Chief Complaint: [] Interval history: Ms. Alvarado is a 67 year old F status post ostomy bag placement, history of DVT on Eliquis, hypothyroidism, methamphetamine abuse, presenting with abdominal pain. The following history is severely limited by patient's clinical situations. ED doctor performed CT abdomen pelvis showing signs of ileus. He called outside hospital requesting consult with the surgeon who placed the ostomy bag but they stated this is not his surgical case and refused to take the patient. An NG tube was attempted to be placed but x-ray showing it was in the wrong position so it was subsequently withdrawal. Dr. Browne recommended do not try to reinsert insert an NG tube. Ostomy bag placement has blood-tinged. Patient's found to be tested positive for methamphetamine as well as cannabis from her urine drug screen. She also have elevated blood pressure initially with a systolic blood pressure above 200 and subsequently resolved after rounds of IV hydralazine given. Patient could not be discharged from ED to home due to delirium secondary to substance abuse. Admission request is called for observations until patient's mentation is back to the baseline. 03/05: There was no major overnight events. Patient is complaining of 10 out of 10 diffuse, sharp, constant abdominal pain. She is complain of nausea but no vomit ing. She is stating that she is hungry. We will continue to provide narcotics and antiemetics for symptoms control. We will continue IV fluid infusion for now. We will check with general surgeon Dr. Summers regarding the timing to start feeding the patient. 03/06 Patient mentation is improved from admit but still with some intermittent mild confusion. She does feel. She states very weak feels a little bit worse than yesterday but cannot explain how. She complains of headache. She has no more bleeding via her ostomy. Synthroid was restarted and she admits that she does not take it very often which is also reflected in her severely abnormal thyroid function labs. Urine culture grew Klebsiella oxytocin and will start antibiotics. Mild improvement in leukocytosis. Renal function similar to yesterday may be a touch better. 03/07 Patient slept all right per nursing. Patient drowsy this morning similar to yesterday. But does answer questions appropriately. She was agitated yesterday evening and did get Zyprexa. Leukocytosis improving. Renal function stable suspect this might be her baseline. 03/08 Patient ambulated in est[place] yesterday fairly well. Patient with flat affect in th e morning and poorly communicative. Patient likely benefit from psych eval. was agitated last night, Difficulty in sleeping. 03/09 Patient more alert and awake this morning than she usually is in the morning. She complains of upset stomach. And a headache. She says she is felt crummy ever since she had her colostomy placed months ago. 03/10 Severe agitation last night. Multiple medications given including Haldol 5 mg x 2. Zyprexa 10 mg. Ativan 1 mg x 2. Currently sleeping. Review of Systems: Unable to obtain as did not want to wake the patient up at this time. Constitutional Vitals: Vital Signs Temp Pulse Resp BP Pulse Ox O2 Del Method O2 Flow Rate 97 F 74 18 125/82 95 Room Air 96 03/10/22 07:03 03/10/22 07:03 03/10/22 07:03 03/10/22 07:03 03/10/22 07:03 03/10/22 07:03 03/06/22 19:00 Period Temp Pulse Resp BP Sys/Blanco Pulse Ox O2 Del Method O2 Flow Rate Last 24 Hr 97 F-98.4 F 67-81 16-20 94-136/75-91 94-96 Room Air-Room Air Intake and Output 03/09/22 03/10/22 03/10/22 19:59 03:59 11:59 Intake Total 720 Output Total 750 425 Balance -30 -425 Weight 64.047 kg Intake & Output: Intake & Output 03/09/22 03/10/22 03/10/22 19:59 03:59 11:59 Intake Total 720 Output Total 750 425 Balance -30 -425 Weight 64.047 kg Intake: Oral 720 Output: Urine Catheter Amount 325 Void Amount 250 Stool 500 100 Other: Meal Lunch ice cream Percent of Meal Consumed 100% 100% Feeding Ability Assist with Tray Set Up Assist with Tray Set Up Urine Appearance Clear Cloudy Clear Uretheral (Orellana) Clear Clear Urine Color Yellow Yellow Yellow Uretheral (Orellana) Yellow Yellow Urine Odor Normal Stool Size Moderate Stool Color Brown Brown Brown Blood Tinged Yellow Stool Consistency Loose Loose Exam: General: Sleeping, no acute Distress, Eyes/N/T: Head/Neck: neck supple, CV: RRR, No murmurs, Pulm: Clear b/l, no wheezing/rhonchi/rales Abd: soft, nontender, +BS x4, Ostomy in place Ext: no clubbing/cyanosis/edema Neuro: no focal deficits, moves all extremities spontaneously Skin: warm/dry Psych: flat affect OBJ DATA Labs 03/07/22 06:08 03/09/22 10:14 Labs: Abnormal Lab Results 03/09/22 03/07/22 03/07/22 10:14 06:08 06:08 WBC 11.1 H RDW 14.8 H Immature Gran % (Auto) 1.2 H Immature Gran # 0.13 H Sodium 130 L Carbon Dioxide 18 L 20 L BUN 24 H Creatinine 1.8 H 1.7 H Calcium 8.4 L Lactate Dehydrogenase 295 H 340 H Albumin 3.1 L Globulin 4.0 H Albumin/Globulin Ratio 0.8 L 0.9 L Triglycerides 188 H Meds: Medications Acetaminophen (Acetaminophen 325 Mg Tablet) 650 mg PO Q6HP PRN; Protocol PRN Reason: Per Pain Protocol/Fever > 101 Last Admin: 03/07/22 19:55 Dose: 650 mg Hydrocodone Bitart/Acetaminophen (Hydrocodone/Apap 5/325mg Tablet) 1 tab PO Q4HP PRN; Protocol PRN Reason: Per Pain Protocol Last Admin: 03/09/22 20:16 Dose: 1 tab Albuterol/Ipratropium (Ipratropium/Albuterol 3 Ml Ampul.Neb) 3 ml NEB Q4HRT PRN PRN Reason: Wheezing Amlodipine Besylate (Amlodipine 10 Mg Tablet) 10 mg PO DAILY [facility] Last Admin: 03/09/22 09:31 Dose: Not Given Carvedilol (Carvedilol 12.5 Mg Tablet) 12.5 mg PO BID [facility] Last Admin: 03/09/22 20:17 Dose: 12.5 mg Enoxaparin Sodium (Enoxaparin 30 Mg/0.3 Ml Syringe) 30 mg SQ DAILY [facility] Last Admin: 03/09/22 08:05 Dose: 30 mg Hydralazine HCl (Hydralazine 20 Mg/Ml Vial) 0 mg IV Q2HP PRN PRN Reason: Hypertension Last Admin: 03/08/22 04:47 Dose: 10 mg Labetalol HCl (Labetalol 5 Mg/Ml Ml) 0 mg IV Q2HP PRN PRN Reason: Hypertension Levothyroxine Sodium (Levothyroxine 100 Mcg Vial) 100 mcg IV QAMAC [facility] Last Admin: 03/09/22 08:05 Dose: 100 mcg Lorazepam (Lorazepam 1 Mg Tablet) 1 mg PO Q8HP PRN PRN Reason: Anxiety Last Admin: 03/09/22 11:38 Dose: 1 mg Lorazepam (Lorazepam 2 Mg/Ml Vial) 0.5 mg IV Q6HP PRN PRN Reason: ANXIETY/SEDATION Last Admin: 03/10/22 01:31 Dose: 0.5 mg Melatonin (Melatonin 3 Mg Tablet) 3 mg PO QHS [facility] Last Admin: 03/09/22 20:17 Dose: 3 mg Morphine Sulfate (Morphine 4 Mg/Ml Vial) 4 mg IV Q4HP PRN; Protocol PRN Reason: Per Pain Protocol Last Admin: 03/10/22 02:02 Dose: 4 mg Nicotine (Nicotine 14 Mg Patch) 14 mg TOPICAL DAILY@1000 [facility] Last Admin: 03/09/22 09:34 Dose: 14 mg Olanzapine (Olanzapine 5 Mg Tablet) 5 mg PO HSP PRN PRN Reason: Agitation Last Admin: 03/09/22 23:19 Dose: 5 mg Olanzapine (Olanzapine 10 Mg Vial) 5 mg IM ONCE [facility] Last Admin: 03/10/22 06:01 Dose: Not Given Ondansetron HCl (Ondansetron 4 Mg/2 Ml Vial) 4 mg IV Q6HP PRN PRN Reason: Nausea And Vomiting Last Admin: 03/08/22 08:54 Dose: 4 mg Sodium Chloride (0.9 % Sodium Chloride 10 Ml Syringe) 10 ml IV Q8 [facility] Last Admin: 03/10/22 04:13 Dose: 10 ml Trazodone HCl (Trazodone Hcl 50 Mg Tablet) 50 mg PO HS [facility] Last Admin: 03/09/22 20:16 Dose: 50 mg A/P Narrative A/P Narrative: Assessment and Plans: *Mild ileus: resolved -Dr. Summers following -tolerating diet *Encephalopathy/Acute delirium/flat affect: 2/2 UTI + likely psych + ?hypothyroid: waxes/wanes, improving -Continue to monitor, -CT brain mild atrophy and chronic ischemic changes. No acute findings. -severe agitation last night, multiple sedation medications *Cognitive impairment vs ?Dementia vs Psych -telepsych eval *Hypertensive urgency: resolved -Likely 2/2 methamphetamine abuse -Resume oral norvasc/coreg, Hydralazine IV PRN *severe Hypothyroidism: 2/2 medication noncompliance -tsh>100, T4<0.10 ; possibly contributing to AMS -restart synthroid IV for now, patient states she does not take regularly at home *?POLY on CKD IIIb: -s/p IVF, monitor *UTI(Klebsiella oxytocin): -levaquin finished *h/o DVT:was on eliqius in past, not on anymore *Tobacco abuse: Smoking cessation counseling *Generalized weakness/deconditioning: -PT/OT -CM for placement *ppx: lovenox Time Spent With Patient Time: Total time spent is greater than 50% in coordination of care (as documented) at patient's floor/unit and/or counseling patient: Subsequent: Total time with patient: 50 - 65 Minutes QUALITY Stroke Symptom Onset Unknown: No VTE Deep Vein Thrombosis/Pulmonary Embolism Present on Admission: No
[2022-03-10] MEDS: LEVOTHYROXINE 100 MCG VIAL IV SCH (08:29)
[2022-03-10] MEDS ORDERED: LEVOFLOXACIN 750 MG TABLET PO SCH (09:00)
[2022-03-10] MEDS: CARVEDILOL 12.5 MG TABLET PO SCH ×2 (09:28→20:16)
[2022-03-10] MEDS: amLODIPine 10 MG TABLET PO SCH (09:29)
[2022-03-10] MEDS: ENOXAPARIN 30 MG/0.3 ML SYRINGE SQ SCH (09:29)
[2022-03-10] MEDS: NICOTINE 14 MG PATCH TOPICAL SCH (09:50)
--- NOTE | 2022-03-10 11:32 | General Surgery Progress Note ---
SUBJECTIVE Subjective Patient information: Note initiated : 03/10/22 at 11:26 am Service Date, if different from initiated Date: [] Patient: Jennifer Alvarado 67 y/o F admitted on 03/06/22 for ABD PAIN. Chief Complaint: [] Issues with delerium continue, stomal function has been good and without issue Constitutional Vitals: Vital Signs Temp Pulse Resp BP Pulse Ox O2 Del Method O2 Flow Rate 97.1 F 77 18 125/82 97 Room Air 96 03/10/22 11:11 03/10/22 11:11 03/10/22 11:11 03/10/22 07:03 03/10/22 11:11 03/10/22 11:11 03/06/22 19:00 Period Temp Pulse Resp BP Sys/Blanco Pulse Ox O2 Del Method O2 Flow Rate Last 24 Hr 97 F-98.4 F 67-81 16-20 94-136/75-91 94-97 Room Air-Room Air Intake and Output 03/09/22 03/10/22 03/10/22 19:59 03:59 11:59 Intake Total 720 Output Total 750 425 350 Balance -30 -425 -350 Weight 141 lb 3.2 oz Intake & Output: Intake & Output 03/09/22 03/10/22 03/10/22 19:59 03:59 11:59 Intake Total 720 Output Total 750 425 350 Balance -30 -425 -350 Weight 141 lb 3.2 oz Intake: Oral 720 Output: Urine Catheter Amount 325 350 Void Amount 250 Stool 500 100 Other: Meal Lunch ice cream Percent of Meal Consumed 100% 100% Feeding Ability Assist with Tray Set Up Assist with Tray Set Up Urine Appearance Clear Cloudy Clear Uretheral (Orellana) Clear Clear Urine Color Yellow Yellow Yellow Uretheral (Orellana) Yellow Yellow Urine Odor Normal Stool Size Moderate Moderate Stool Color Brown Brown Brown Blood Tinged Yellow Stool Consistency Loose Loose # Bowel Movements 1 GI/Abdominal Additional comments: belly seems soft and non tender, non distended, stomal swelling and color continue to improve with ischemic mucosal changes present at the most outermost aspect but the stoma otherwise looks very pink and viable with the base looking great and no surrounding cellulitis A/P Assessment and plan (1) Prolapse of stoma: Assessment and plan: Stomal Prolapse Looks markedly improved overall Continue current stomal management with no operative plans at this time unless adverse changes occur Status: Acute Time Spent With Patient Time: Total time spent is greater than 50% in coordination of care (as documented) at patient's floor/unit and/or counseling patient:
[2022-03-10] MEDS: LORazepam 2 MG/ML VIAL IV PRN ×3 (12:13→18:45)
--- NOTE | 2022-03-10 13:53 | Behavioral Health Consult ---
HPI History of Present Illness Patient information: Note initiated : 03/10/22 at 1:52 pm Service Date, if different from initiated Date: [] Patient: Jennifer Alvarado 67 y/o F admitted on 03/06/22 for ABD PAIN. Chief Complaint: [] History of present illness: palmer: Jennifer AlvaradoDOB: 1955 DateandTime: 03/10/2022 4:33:26 PM Location of the patient: [facility] IPLocation of the doctor: Von Length of consult: 20 This evaluation was conducted via video telepsychiatry with the assistance of onsite staff Reason for consult: Pharmacotherapy -Agitation Requested by: Dr. Ibarra History of Present Illness: 67 year old F status post ostomy bag placement, history of DVT on Eliquis, hypothyroidism, methamphetamine abuse, presenting with abdominal pain. During the interview patient was pleasant and cooperative but disoriented and confused, Her urine was positive for meth and THC. She was exceptionally agitated overnight and follow up was requested She recieved numerous PRN meds last night with limited benfit. Including IM Zyprexa, On eval today she is not able to engage in any meaningful discussion. I did ask about alcohol she stated yes then states"I do now" making information not reliable. She is clearly internally preoccupied which is consistent with nursing observations. She largely mumbles incoherently Health History: Medical History: meth use, Ileus, Prolapse of stoma, HTN urgency, Upper GI bleed, H/O DVT, hasimoto thyroiditis, lupus, Hep C , Degenerative disck dx , raynauds Medications & Freq: amlodapine Coreg Lovenox Labetalol Duo NEb S ynthyroid Allergies: codeine, Compazine Sudafed Mental Status Exam: Appearance and Attire:Disheveled, Obese, Older than age Psychomotor agitation:Psychomotor agitation Attitude and behavior:Uncooperative, Agitated, Restless, Responding to internal stimuli Speech:mumbled , rambling Mood:Dysthymic Affect:Flat Thought process:Incoherent Thought content:unable to assess Perception:Auditory hallucinations, Visual hallucinations, noted signs of internal preoccupation Intel:unable to assess Abstract: Language:unable to assess Orientation:Disoriented to person, Disoriented to place, Disoriented to time, Disoriented to situation Sense:Delirious Knowledge:unable to assess Memory:unable to assess Insight:Severe impairment Judgement:Severe impairment Gait: Impression/Risk Assessment: Current Suicide Risk Elevated?No Current Violence Risk Elevated?Yes Description:agitated here Issues with ability to care for self?Yes Description:given confusion Summary: 67 yr old female, confused, rambling and agitated Diagnosis: 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 CPT Codes: 06360 Comprehensive history, exam, high complexity medical decision making (40 min) Treatment Plan: General: Minimize anticholinergics. Do not routinely give At cristiano/Benadryl with haldol unless she becomes dystonic Level of Care: No indication for inpatient psychiatric care Psychiatric Clearance: Description:N/A Observation level 1:1 needed?: NA Pharmacological: For acute agitation Should have PO Zyprexa offered 10mg If she is not able to take PO 10mg IM can be given Total dosing between PO and IM is 30mg daily Second line haldol 5mg PO or IM(IV ok as well if she has access) if refusing PO Patient psychotic?No Therapy: supportive Follow up needed while in the hospital?: YesNumber of times:as per hospital routine Discussed plan with onsite business team leader: Yes Who Dr. Fred Romero orange picking supervisor [facility] All Active Problems (Updated 03/04/22 @ 16:09 by Kahlil Weiss MD) Acute delirium (Acute) Methamphetamine use (Acute) Marijuana use (Acute) Prolapse of stoma (Acute) Hypertensive urgency (Acute) Ileus (Acute) Gastrointestinal bleeding, upper (Acute) Acute alteration in mental status (Acute) Ileus (Acute) DVT (deep venous thrombosis) (Acute) Encounter for wound care (Acute) Painless rectal bleeding (Acute) Leg wound, right (Acute) Head injury due to trauma (Acute) Fall (Acute) Opioid abuse with withdrawal (Acute) Laceration of scalp (Acute) H/O Angelique thyroiditis (Acute) Hypertension (Acute) Encounter for ostomy care education (Acute) Influenza-like symptoms (Acute) Abdominal pain (Acute) Unable to care for self (Acute) Acute dehydration (Acute) Colostomy malfunction (Acute) Encounter for long-term (current) use of medications (Chronic) Unintentional weight loss (Chronic) Stress at home (Chronic) PTSD (post-traumatic stress disorder) (Chronic) Laceration without foreign body of right ear, initial encounter (Chronic) Osteoarthritis (Chronic) Thyroid disorder (Chronic) Urine incontinence (Chronic) Bronchitis (Chronic) Asthma (Chronic) Fainting (Chronic) Dizziness (Chronic) Heart attack (Chronic) Shortness of breath (Chronic) Chest pain (Chronic) Headache (Chronic) Lupus (Chronic) History of hepatitis C (Chronic) Tobacco abuse (Chronic) Hypertension (Chronic) Neck pain, chronic (Chronic) Failure to gain weight in adult (Chronic) Actinic keratosis (Chronic) DDD (degenerative disc disease), cervical (Chronic) Vitamin D deficiency (Chronic) Angelique's thyroiditis (Chronic) Raynauds phenomenon (Chronic) Rib pain on right side (Chronic) Arthritis (Chronic) Elevated troponin (Acute) Hypothyroidism (Acute) Hypertensive urgency (Acute) Urinary tract infection (Acute) Myxedema (Acute) Medical History (Updated 03/04/22 @ 16:09 by Kahlil Weiss MD) Actinic keratosis Arthritis Asthma Bronchitis Chest pain DDD (degenerative disc disease), cervical Dizziness Elevated troponin Encounter for long-term (current) use of medications Failure to gain weight in adult Fainting Gout Angelique's thyroiditis Headache Heart attack History of hepatitis C Hypertension Hypertensive urgency Hypothyroidism Laceration without foreign body of right ear, initial encounter Lupus Myxedema Neck pain, chronic Osteoarthritis Peptic ulcer Poor sleep PTSD (post-traumatic stress disorder) Raynauds phenomenon Rib pain on right side Shortness of breath Stress at home Thyroid disorder Tobacco abuse Unintentional weight loss Urinary tract infection Urine incontinence Vitamin D deficiency Surgical History History of eye surgery (~1960) Family History Mother , age 73 cancer and heart failure Glaucoma Thyroid disease Kidney disease Hypertension Heart disease Diabetes Asthma Arthritis Father Glaucoma Cancer Thyroid disease Hypertension Diabetes Arthritis Grandmother Cancer Maternal Thyroid disease Maternal Hypertension Maternal Heart disease Maternal Diabetes Maternal Arthritis Maternal Stroke Paternal Grandfather Cancer Maternal Arthritis Maternal Stroke Paternal Brother Heroin addiction Other Family history of drug abuse Family history of mental disorder Social History (Updated 12/21/18 @ 11:23 by ANDREW Nava) household members: significant other housing: apartment marital status: leisure activities: hunting and fishing physical activity: walking duration: other details: 4-5 times a week smoking status: Current every day smoker alcohol intake frequency: does not drink substance use type: does not use seatbelt use: sometimes MEDS/ALLERGIES Home Medications and Allergies Home Medications Medication Instructions Recorded Confirmed Type albuterol sulfate 90 mcg/actuation 2 puff inhalation .Q4-6H 03/03/17 03/08/22 History aerosol inhaler (ProAir HFA) gabapentin 100 mg capsule 100 mg PO TID 10/05/18 03/08/22 History apixaban 5 mg (74 tabs) tablets in 5 mg PO ONCE #74 tabs 03/14/21 03/08/22 Rx a dose pack (Eliquis DVT-PE Treat 30D Start) apixaban 5 mg tablet (Eliquis) 5 mg PO BID #60 tabs 04/28/21 03/08/22 Rx carvedilol 25 mg PO BID 03/05/22 03/05/22 History levothyroxine 100 mcg PO DAILY 03/05/22 03/05/22 History lorazepam 1 mg PO Q8HP PRN Anxiety 03/05/22 03/05/22 History trazodone 50 mg PO DAILY 03/05/22 03/05/22 History Allergies Allergy/AdvReac Type Severity Reaction Status Date / Time codeine Allergy Unknown Verified 02/02/22 12:53 prochlorperazine Allergy Unknown Verified 02/02/22 12:53 [From Compazine] pseudoephedrine Allergy Unknown Verified 02/02/22 12:53 [From Sudafed] Physical Examination Vital Signs Vital signs: Temp Pulse Resp BP Pulse Ox O2 Del Method O2 Flow Rate 97.1 F 77 18 125/82 97 Room Air 96 03/10/22 11:11 03/10/22 11:11 03/10/22 11:11 03/10/22 07:03 03/10/22 11:11 03/10/22 11:11 03/06/22 19:00 Results Laboratory Findings 03/07/22 06:08 03/09/22 10:14 Abnormal lab findings: Abnormal Labs 03/04/22 03/04/22 03/04/22 01:40 01:40 01:40 WBC RDW 14.9 H Immature Gran % (Auto) 0.8 H Immature Gran # 0.08 H Absolute Neutrophils POC VBG pH POC VBG pCO2 at Temp POC VBG pO2 POC VBG HCO3 POC VBG Total CO2 POC Venous O2 Sat POC VBG Base Excess Sodium Carbon Dioxide POC BUN BUN Creatinine POC Creatinine Glucose Calcium POC WB Ioniz Calcium AST 41 H Lactate Dehydrogenase Total Creatine Kinase CK-MB (CK-2) Albumin Globulin 4.6 H Albumin/Globulin Ratio Triglycerides Amylase 149 H Lipase 61 H Procalcitonin 0.11 H TSH Free T4 Urine Protein Urine Occult Blood Urine Nitrate Urine WBC Urine Bacteria Hyaline Casts Urine Mucus Ur Amphetamines Screen U Marijuana (THC) Screen 03/04/22 03/04/22 03/04/22 01:55 08:00 08:29 WBC RDW Immature Gran % (Auto) Immature Gran # Absolute Neutrophils POC VBG pH 7.54 H POC VBG pCO2 at Temp 23.0 L POC VBG pO2 73 H POC VBG HCO3 19.6 L POC VBG Total CO2 20.0 L POC Venous O2 Sat 97.0 H POC VBG Base Excess -3.0 L Sodium Carbon Dioxide POC BUN 26 H BUN Creatinine POC Creatinine 1.8 H Glucose Calcium POC WB Ioniz Calcium 1.13 L AST Lactate Dehydrogenase Total Creatine Kinase CK-MB (CK-2) Albumin Globulin Albumin/Globulin Ratio Triglycerides Amylase Lipase Procalcitonin TSH > 100 H Free T4 < 0.10 L Urine Protein Urine Occult Blood Urine Nitrate Urine WBC Urine Bacteria Hyaline Casts Urine Mucus Ur Amphetamines Screen U Marijuana (THC) Screen 03/04/22 03/04/22 03/04/22 08:30 08:34 09:45 WBC RDW Immature Gran % (Auto) Immature Gran # Absolute Neutrophils POC VBG pH POC VBG pCO2 at Temp 38.4 L POC VBG pO2 POC VBG HCO3 22.3 L POC VBG Total CO2 23.0 L POC Venous O2 Sat POC VBG Base Excess -3.0 L Sodium Carbon Dioxide POC BUN BUN Creatinine POC Creatinine Glucose Calcium POC WB Ioniz Calcium AST Lactate Dehydrogenase Total Creatine Kinase 539 H CK-MB (CK-2) 17.4 H Albumin Globulin Albumin/Globulin Ratio Triglycerides Amylase Lipase Procalcitonin TSH Free T4 Urine Protein Urine Occult Blood Urine Nitrate Urine WBC Urine Bacteria Hyaline Casts Urine Mucus Ur Amphetamines Screen Suspect positive A U Marijuana (THC) Screen Suspect positive A 03/04/22 03/05/22 03/05/22 09:45 06:00 06:00 WBC 14.7 H RDW 14.9 H Immature Gran % (Auto) Immature Gran # 0.08 H Absolute Neutrophils 11.19 H POC VBG pH POC VBG pCO2 at Temp POC VBG pO2 POC VBG HCO3 POC VBG Total CO2 POC Venous O2 Sat POC VBG Base Excess Sodium Carbon Dioxide 21 L POC BUN BUN 25 H Creatinine 1.7 H POC Creatinine Glucose 116 H Calcium POC WB Ioniz Calcium AST Lactate Dehydrogenase Total Creatine Kinase CK-MB (CK-2) Albumin Globulin Albumin/Globulin Ratio Triglycerides Amylase Lipase Procalcitonin TSH Free T4 Urine Protein 100 A Urine Occult Blood Small A Urine Nitrate Positive A Urine WBC 11 H Urine Bacteria Many A Hyaline Casts 3 H Urine Mucus Few A Ur Amphetamines Screen U Marijuana (THC) Screen 03/06/22 03/06/22 03/07/22 08:04 08:04 06:08 WBC 13.2 H 11.1 H RDW 15.0 H 14.8 H Immature Gran % (Auto) 0.7 H 1.2 H Immature Gran # 0.09 H 0.13 H Absolute Neutrophils 9.77 H POC VBG pH POC VBG pCO2 at Temp POC VBG pO2 POC VBG HCO3 POC VBG Total CO2 POC Venous O2 Sat POC VBG Base Excess Sodium Carbon Dioxide 20 L POC BUN BUN Creatinine 1.6 H POC Creatinine Glucose 114 H Calcium 8.5 L POC WB Ioniz Calcium AST 32 H Lactate Dehydrogenase 362 H Total Creatine Kinase CK-MB (CK-2) Albumin Globulin 3.9 H Albumin/Globulin Ratio 0.8 L Triglycerides Amylase Lipase Procalcitonin TSH Free T4 Urine Protein Urine Occult Blood Urine Nitrate Urine WBC Urine Bacteria Hyaline Casts Urine Mucus Ur Amphetamines Screen U Marijuana (THC) Screen 03/07/22 03/09/22 06:08 10:14 WBC RDW Immature Gran % (Auto) Immature Gran # Absolute Neutrophils POC VBG pH POC VBG pCO2 at Temp POC VBG pO2 POC VBG HCO3 POC VBG Total CO2 POC Venous O2 Sat POC VBG Base Excess Sodium 130 L Carbon Dioxide 20 L 18 L POC BUN BUN 24 H Creatinine 1.7 H 1.8 H POC Creatinine Glucose Calcium 8.4 L POC WB Ioniz Calcium AST Lactate Dehydrogenase 340 H 295 H Total Creatine Kinase CK-MB (CK-2) Albumin 3.1 L Globulin 4.0 H Albumin/Globulin Ratio 0.9 L 0.8 L Triglycerides 188 H Amylase Lipase Procalcitonin TSH Free T4 Urine Protein Urine Occult Blood Urine Nitrate Urine WBC Urine Bacteria Hyaline Casts Urine Mucus Ur Amphetamines Screen U Marijuana (THC) Screen Microbiology: Microbiology 03/04/22 09:45 Urine - Catheterized Urine Culture - Final Klebsiella oxytoca A/P Time Spent With Patient Time: Total time spent is greater than 50% in coordination of care (as documented) at patient's floor/unit and/or counseling patient:
[2022-03-10] MEDS ORDERED: OLANZapine 5 MG TABLET PO PRN (17:08)
[2022-03-10] MEDS: hydrALAZINE 20 MG/ML VIAL IV PRN (20:15)
[2022-03-10] MEDS: MELATONIN 3 MG TABLET PO SCH (20:15)
[2022-03-10] MEDS: traZODone HCL 50 MG TABLET PO SCH (20:16)
[2022-03-11] MEDS: 0.9 % SODIUM CHLORIDE 10 ML SYRINGE IV SCH ×3 (04:21→22:48)
[2022-03-11] MEDS: OLANZapine 10 MG VIAL IM SCH (04:21)
[2022-03-11] MEDS: LEVOTHYROXINE 100 MCG VIAL IV SCH (06:56)
[2022-03-11 06:59] LABS: ALT/SGPT 14 U/L (<40); AST/SGOT 30 U/L (<32); Albumin/Globulin Ratio 0.8 (1.0-2.3); Alkaline Phosphatase 53 U/L (39-117); Bilirubin,Direct < 0.2 mg/dL (0-0.3); Bilirubin,Total 0.5 mg/dL (0.1-1.0); Blood Urea Nitrogen 32 mg/dL (8-23); Calcium 8.6 mg/dL (8.6-10.4); Carbon Dioxide 19 mmol/L (22-30); Chloride 102 mmol/L (96-108); Globulin 3.9 gm/dL (2.2-3.7); Glomerular Filtration Rate 39; Glucose 87 mg/dL (70-105); Lactate Dehydrogenase 322 U/L (135-225); Phosphorous 3.3 mg/dL (2.5-4.5); Triglycerides 179 mg/dL (<150); Uric Acid 8.1 mg/dL (2.5-8.0)
[2022-03-11] MEDS: ENOXAPARIN 30 MG/0.3 ML SYRINGE SQ SCH (08:39)
--- NOTE | 2022-03-11 08:56 | Internal Med Progress Note ---
SUBJECTIVE Subjective Patient information: Note initiated : 03/11/22 at 8:54 am Service Date, if different from initiated Date: [] Patient: Jennifer Alvarado 67 y/o F admitted on 03/06/22 for ABD PAIN. Chief Complaint: [Abdominal pain] Principal diagnosis: Ileus Interval history: The patient was resting in bed however was quite somnolent and unable to provide history Constitutional Vitals: Vital Signs Temp Pulse Resp BP Pulse Ox O2 Del Method O2 Flow Rate 97.1 F 68 18 122/87 97 Room Air 96 03/11/22 07:47 03/11/22 07:47 03/11/22 07:47 03/11/22 07:47 03/11/22 07:47 03/11/22 07:47 03/06/22 19:00 Period Temp Pulse Resp BP Sys/Blanco Pulse Ox O2 Del Method O2 Flow Rate Last 24 Hr 97.0 F-98.0 F 68-82 16-20 101-151/64-115 95-97 Room Air-Room Air Intake and Output 03/10/22 03/11/22 03/11/22 19:59 03:59 11:59 Intake Total 120 Output Total 700 775 Balance -580 -775 Weight 62.766 kg Intake & Output: Intake & Output 03/10/22 03/11/22 03/11/22 19:59 03:59 11:59 Intake Total 120 Output Total 700 775 Balance -580 -775 Weight 62.766 kg Intake: Oral 120 Output: Urine Catheter Amount 700 375 Stool 400 Other: Meal Dinner Percent of Meal Consumed 100% Urine Appearance Clear Clear Uretheral (Orellana) Clear Urine Color Yellow Yellow Uretheral (Orellana) Yellow Urine Odor Normal Normal Stool Size Large Stool Color Brown Stool Consistency Soft Loose Head Head exam: Present atraumatic and normal inspection Eye Eye exam: Present normal appearance ENT ENT exam: Present mucous membranes moist, normal exam and normal external ear exam Neck Neck exam: Present normal inspection Respiratory Respiratory exam: Present normal respiratory exam Cardiovascular Cardiovascular exam: Present normal rate and rhythm GI/Abdominal GI/Abdominal exam: Present normal bowel sounds Back Exam Back exam: Present normal inspection Neurological Exam Neurological exam: Absent alert Skin Skin exam: Present intact and warm OBJ DATA Labs 03/07/22 06:08 03/11/22 05:50 Labs: Abnormal Lab Results 03/11/22 03/09/22 05:50 10:14 Sodium 130 L Carbon Dioxide 19 L 18 L BUN 32 H 24 H Creatinine 1.4 H 1.8 H Uric Acid 8.1 H Lactate Dehydrogenase 322 H 295 H Albumin 3.0 L 3.1 L Globulin 3.9 H 4.0 H Albumin/Globulin Ratio 0.8 L 0.8 L Triglycerides 179 H 188 H Meds: Medications Acetaminophen (Acetaminophen 325 Mg Tablet) 650 mg PO Q6HP PRN; Protocol PRN Reason: Per Pain Protocol/Fever > 101 Last Admin: 03/07/22 19:55 Dose: 650 mg Hydrocodone Bitart/Acetaminophen (Hydrocodone/Apap 5/325mg Tablet) 1 tab PO Q4HP PRN; Protocol PRN Reason: Per Pain Protocol Last Admin: 03/09/22 20:16 Dose: 1 tab Albuterol/Ipratropium (Ipratropium/Albuterol 3 Ml Ampul.Neb) 3 ml NEB Q4HRT PRN PRN Reason: Wheezing Amlodipine Besylate (Amlodipine 10 Mg Tablet) 10 mg PO DAILY [facility] Last Admin: 03/10/22 09:29 Dose: Not Given Carvedilol (Carvedilol 12.5 Mg Tablet) 12.5 mg PO BID [facility] Last Admin: 03/10/22 20:16 Dose: 12.5 mg Enoxaparin Sodium (Enoxaparin 30 Mg/0.3 Ml Syringe) 30 mg SQ DAILY [facility] Last Admin: 03/11/22 08:39 Dose: 30 mg Hydralazine HCl (Hydralazine 20 Mg/Ml Vial) 0 mg IV Q2HP PRN PRN Reason: Hypertension Last Admin: 03/10/22 20:15 Dose: 10 mg Labetalol HCl (Labetalol 5 Mg/Ml Ml) 0 mg IV Q2HP PRN PRN Reason: Hypertension Levothyroxine Sodium ([facility]othy[facility]ine 100 Mcg Vial) [facility] Last Admin: 03/11/22 06:56 Dose: 100 mcg Lorazepam (Lorazepam 1 Mg Tablet) 1 mg PO Q8HP PRN PRN Reason: Anxiety Last Admin: 03/09/22 11:38 Dose: 1 mg Lorazepam (Lorazepam 2 Mg/Ml Vial) 0.5 mg IV Q6HP PRN PRN Reason: ANXIETY/SEDATION Last Admin: 03/10/22 18:45 Dose: 0.5 mg Melatonin (Melatonin 3 Mg Tablet) 3 mg PO QHS [facility] Last Admin: 03/10/22 20:15 Dose: 3 mg Morphine Sulfate (Morphine 4 Mg/Ml Vial) 4 mg IV Q4HP PRN; Protocol PRN Reason: Per Pain Protocol Last Admin: 03/10/22 22:34 Dose: 4 mg Nicotine (Nicotine 14 Mg Patch) 14 mg TOPICAL DAILY@1000 [facility] Last Admin: 03/10/22 09:50 Dose: 14 mg Olanzapine (Olanzapine 10 Mg Vial) 5 mg IM ONCE [facility] Last Admin: 03/11/22 04:21 Dose: Not Given Olanzapine (Olanzapine 5 Mg Tablet) 10 mg PO HSP PRN PRN Reason: Agitation Ondansetron HCl (Ondansetron 4 Mg/2 Ml Vial) 4 mg IV Q6HP PRN PRN Reason: Nausea And Vomiting Last Admin: 03/08/22 08:54 Dose: 4 mg Sodium Chloride (0.9 % Sodium Chloride 10 Ml Syringe) 10 ml IV Q8 [facility] Last Admin: 03/11/22 04:21 Dose: 10 ml Trazodone HCl (Trazodone Hcl 50 Mg Tablet) 50 mg PO HS [facility] Last Admin: 03/10/22 20:16 Dose: 50 mg A/P Assessment and plan (1) Methamphetamine use: Status: Acute (2) Marijuana use: Status: Acute (3) Acute delirium: Status: Acute (4) Ileus: Status: Acute (5) DVT (deep venous thrombosis): Status: Acute (6) Hypothyroidism: Status: Acute Qualifiers: Hypothyroidism type: unspecified Qualified Code(s): E03.9 - Hypothyroidism, unspecified (7) Hypertensive urgency: Status: Acute Narrative A/P Narrative: Assessment and Plans: *Mild ileus: resolved -Dr. Summers following -tolerating diet *Encephalopathy/Acute delirium/flat affect: 2/2 UTI + likely psych + ?hypothyroid: waxes/wanes, improving -Continue to monitor, -CT brain mild atrophy and chronic ischemic changes. No acute findings. -severe agitation last night, multiple sedation medications *Cognitive impairment vs ?Dementia vs Psych -telepsych eval *Hypertensive urgency: resolved -Likely 2/2 methamphetamine abuse -Resume oral norvasc/coreg, Hydralazine IV PRN *severe Hypothyroidism: 2/2 medication noncompliance -tsh>100, T4<0.10 ; possibly contributing to AMS -restart synthroid IV for now, patient states she does not take regularly at home *?POLY on CKD IIIb: -s/p IVF, monitor *UTI(Klebsiella oxytocin): -levaquin finished *h/o DVT:was on eliqius in past, not on anymore *Tobacco abuse: Smoking cessation counseling *Generalized weakness/deconditioning: -PT/OT -CM for placement *ppx: lovenox Time Spent With Patient Time: Total time spent is greater than 50% in coordination of care (as documented) at patient's floor/unit and/or counseling patient: QUALITY Stroke Symptom Onset Unknown: No VTE Deep Vein Thrombosis/Pulmonary Embolism Present on Admission: No
[2022-03-11] MEDS: NICOTINE 14 MG PATCH TOPICAL SCH (09:41)
[2022-03-11] MEDS: CARVEDILOL 12.5 MG TABLET PO SCH ×2 (10:28→22:48)
[2022-03-11] MEDS: amLODIPine 10 MG TABLET PO SCH (10:28)
[2022-03-11] MEDS: ACETAMINOPHEN 325 MG TABLET PO PRN (17:45)
[2022-03-11] MEDS: LORazepam 1 MG TABLET PO PRN (18:21)
[2022-03-11] MEDS: MELATONIN 3 MG TABLET PO SCH (22:48)
[2022-03-11] MEDS: traZODone HCL 50 MG TABLET PO SCH (22:48)
[2022-03-12] MEDS: 0.9 % SODIUM CHLORIDE 10 ML SYRINGE IV SCH ×4 (03:57→20:58)
--- NOTE | 2022-03-12 06:18 | Internal Med Progress Note ---
SUBJECTIVE Subjective Patient information: Note initiated : 03/12/22 at 6:16 am Service Date, if different from initiated Date: [] Patient: Jennifer Alvarado 67 y/o F admitted on 03/06/22 for ABD PAIN. Chief Complaint: [] Principal diagnosis: Ileus Interval history: The patient's narcotic medications were discontinued, as was her PO zyprexa this AM due to the concerns of oversedation. The patient remained somnolent most of the day yesterday. The hope is that she can wake up and participate with PT/OT. CM is working on dispo as she is homeless. Constitutional Vitals: Vital Signs Temp Pulse Resp BP Pulse Ox O2 Del Method O2 Flow Rate 97.6 F 67 18 110/73 93 Room Air 96 03/12/22 03:38 03/12/22 03:38 03/12/22 03:38 03/12/22 03:38 03/12/22 03:38 03/12/22 03:38 03/06/22 19:00 Period Temp Pulse Resp BP Sys/Blanco Pulse Ox O2 Del Method O2 Flow Rate Last 24 Hr 97.0 F-97.8 F 67-78 16-18 107-123/70-87 93-100 Room Air-Room Air Intake and Output 03/11/22 03/12/22 03/12/22 19:59 03:59 11:59 Intake Total 460 75 Output Total 575 500 300 Balance -115 -425 -300 Weight 62.868 kg Intake & Output: Intake & Output 03/11/22 03/12/22 03/12/22 19:59 03:59 11:59 Intake Total 460 75 Output Total 575 500 300 Balance -115 -425 -300 Weight 62.868 kg Intake: Oral 460 75 Output: Urine Catheter Amount 200 250 Stool 375 250 300 Other: Meal Dinner Percent of Meal Consumed 100% Feeding Ability Total Assistance Urine Appearance Cloudy Sediment Uretheral (Orellana) Clear Urine Color Light Maren Dark Yellow Uretheral (Orellana) Yellow Urine Odor Strong Stool Size Moderate Stool Color Brown Brown Brown Yellow Stool Consistency Soft Loose Soft # Bowel Movements 1 Head Head exam: Present atraumatic and normal inspection Eye Eye exam: Present normal appearance ENT ENT exam: Present mucous membranes moist, normal exam and normal external ear exam Neck Neck exam: Present normal inspection Respiratory Respiratory exam: Present normal respiratory exam Cardiovascular Cardiovascular exam: Present normal rate and rhythm GI/Abdominal GI/Abdominal exam: Present normal bowel sounds Back Exam Back exam: Present normal inspection Neurological Exam Neurological exam: Present alert Skin Skin exam: Present intact and warm OBJ DATA Labs 03/07/22 06:08 03/11/22 05:50 Labs: Abnormal Lab Results 03/11/22 03/09/22 05:50 10:14 Sodium 130 L Carbon Dioxide 19 L 18 L BUN 32 H 24 H Creatinine 1.4 H 1.8 H Uric Acid 8.1 H Lactate Dehydrogenase 322 H 295 H Albumin 3.0 L 3.1 L Globulin 3.9 H 4.0 H Albumin/Globulin Ratio 0.8 L 0.8 L Triglycerides 179 H 188 H Meds: Medications Acetaminophen (Acetaminophen 325 Mg Tablet) 650 mg PO Q6HP PRN; Protocol PRN Reason: Per Pain Protocol/Fever > 101 Last Admin: 03/11/22 17:45 Dose: 650 mg Albuterol/Ipratropium (Ipratropium/Albuterol 3 Ml Ampul.Neb) 3 ml NEB Q4HRT PRN PRN Reason: Wheezing Amlodipine Besylate (Amlodipine 10 Mg Tablet) 10 mg PO DAILY [facility] Last Admin: 03/11/22 10:28 Dose: 10 mg Carvedilol (Carvedilol 12.5 Mg Tablet) 12.5 mg PO BID [facility] Last Admin: 03/11/22 22:48 Dose: 12.5 mg Enoxaparin Sodium (Enoxaparin 30 Mg/0.3 Ml Syringe) 30 mg SQ DAILY [facility] Last Admin: 03/11/22 08:39 Dose: 30 mg Hydralazine HCl (Hydralazine 20 Mg/Ml Vial) 0 mg IV Q2HP PRN PRN Reason: Hypertension Last Admin: 03/10/22 20:15 Dose: 10 mg Labetalol HCl (Labetalol 5 Mg/Ml Ml) 0 mg IV Q2HP PRN PRN Reason: Hypertension Levothyroxine Sodium (Levothyroxine 100 Mcg Vial) 100 mcg IV QAMAC [facility] Last Admin: 03/11/22 06:56 Dose: 100 mcg Lorazepam (Lorazepam 1 Mg Tablet) 1 mg PO Q8HP PRN PRN Reason: Anxiety Last Admin: 03/11/22 18:21 Dose: 1 mg Melatonin (Melatonin 3 Mg Tablet) 3 mg PO QHS [facility] Last Admin: 03/11/22 22:48 Dose: 3 mg Nicotine (Nicotine 14 Mg Patch) 14 mg TOPICAL DAILY@1000 [facility] Last Admin: 03/11/22 09:41 Dose: 14 mg Ondansetron HCl (Ondansetron 4 Mg/2 Ml Vial) 4 mg IV Q6HP PRN PRN Reason: Nausea And Vomiting Last Admin: 03/08/22 08:54 Dose: 4 mg Sodium Chloride (0.9 % Sodium Chloride 10 Ml Syringe) 10 ml IV Q8 [facility] Last Admin: 03/12/22 05:01 Dose: Not Given Trazodone HCl (Trazodone Hcl 50 Mg Tablet) 50 mg PO [facility] Last Admin: 03/11/22 22:48 Dose: 50 mg A/P Assessment and plan (1) Methamphetamine use: Status: Acute (2) Marijuana use: Status: Acute (3) Acute delirium: Status: Acute (4) Ileus: Status: Acute (5) DVT (deep venous thrombosis): Status: Acute (6) Hypothyroidism: Status: Acute Qualifiers: Hypothyroidism type: unspecified Qualified Code(s): E03.9 - Hypothyroidism, unspecified (7) Hypertensive urgency: Status: Acute Narrative A/P Narrative: Assessment and Plans: *Mild ileus: resolved -Dr. Summers following -tolerating diet *Encephalopathy/Acute delirium/flat affect: 2/2 UTI + likely psych + ?hypothyroid: waxes/wanes, improving -Continue to monitor, -CT brain mild atrophy and chronic ischemic changes. No acute findings. -severe agitation last night, multiple sedation medications *Cognitive impairment vs ?Dementia vs Psych -telepsych eval-> rec PO zyprexa, will now D/C and re-eval day to day *Hypertensive urgency: resolved -Likely 2/2 methamphetamine abuse -Resume oral norvasc/coreg, Hydralazine IV PRN *severe Hypothyroidism: 2/2 medication noncompliance -tsh>100, T4<0.10 ; possibly contributing to AMS -restart synthroid IV for now, patient states she does not take regularly at home *?POLY on CKD IIIb: -s/p IVF, monitor *UTI(Klebsiella oxytocin): -levaquin finished *h/o DVT:was on eliqius in past, not on anymore *Tobacco abuse: Smoking cessation counseling *Generalized weakness/deconditioning: -PT/OT -CM for placement (homeless) *ppx: lovenox Time Spent With Patient Time: Total time spent is greater than 50% in coordination of care (as documented) at patient's floor/unit and/or counseling patient: Subsequent: Total time with patient: 25 - 34 minutes QUALITY Stroke Symptom Onset Unknown: No VTE Deep Vein Thrombosis/Pulmonary Embolism Present on Admission: No
[2022-03-12] MEDS: LEVOTHYROXINE 100 MCG VIAL IV SCH (07:28)
[2022-03-12] MEDS: CARVEDILOL 12.5 MG TABLET PO SCH ×2 (08:59→20:56)
[2022-03-12] MEDS: ENOXAPARIN 30 MG/0.3 ML SYRINGE SQ SCH (08:59)
[2022-03-12] MEDS: amLODIPine 10 MG TABLET PO SCH (08:59)
[2022-03-12] MEDS: ACETAMINOPHEN 325 MG TABLET PO PRN ×2 (10:50→20:55)
[2022-03-12] MEDS: NICOTINE 14 MG PATCH TOPICAL SCH (10:50)
[2022-03-12] MEDS: LORazepam 1 MG TABLET PO PRN (17:26)
[2022-03-12] MEDS: MELATONIN 3 MG TABLET PO SCH (20:56)
[2022-03-12] MEDS: traZODone HCL 50 MG TABLET PO SCH (20:56)
[2022-03-13] MEDS: 0.9 % SODIUM CHLORIDE 10 ML SYRINGE IV SCH (06:00)
[2022-03-13] MEDS: LEVOTHYROXINE 100 MCG VIAL IV SCH (07:42)
[2022-03-13] MEDS: ENOXAPARIN 30 MG/0.3 ML SYRINGE SQ SCH (10:17)
[2022-03-13] MEDS: amLODIPine 10 MG TABLET PO SCH (10:19)
[2022-03-13] MEDS: CARVEDILOL 12.5 MG TABLET PO SCH (10:21)
[2022-03-13] MEDS: NICOTINE 14 MG PATCH TOPICAL SCH (10:21)
--- NOTE | 2022-03-13 11:37 | Internal Med Progress Note ---
SUBJECTIVE Subjective Patient information: Note initiated : 03/13/22 at 11:06 am Service Date, if different from initiated Date: [] Patient: Jennifer Alvarado 67 y/o F admitted on 03/06/22 for ABD PAIN. Chief Complaint: [] Principal diagnosis: Ileus Interval history: The patient continues to exhibit pain seeking behavior. She is clinically stable and currently awaiting discharge planning. Constitutional Vitals: Vital Signs Temp Pulse Resp BP Pulse Ox O2 Del Method O2 Flow Rate 97.2 F 74 20 131/89 95 Room Air 96 03/13/22 07:44 03/13/22 07:44 03/13/22 07:44 03/13/22 07:44 03/13/22 07:44 03/13/22 07:44 03/06/22 19:00 Period Temp Pulse Resp BP Sys/Blanco Pulse Ox O2 Del Method O2 Flow Rate Last 24 Hr 97.0 F-98.1 F 74-83 16-20 100-131/65-89 92-98 Room Air-Room Air Intake and Output 03/12/22 03/13/22 03/13/22 19:59 03:59 11:59 Intake Total 1190 390 Output Total 550 950 500 Balance 640 -560 -500 Weight 64.093 kg Intake & Output: Intake & Output 03/12/22 03/13/22 03/13/22 19:59 03:59 11:59 Intake Total 1190 390 Output Total 550 950 500 Balance 640 -560 -500 Weight 64.093 kg Intake: Oral 1190 390 Output: Urine Catheter Amount 250 250 300 Stool 300 700 200 Other: Meal Sherbert cream of chicken soup Percent of Meal Consumed 100% 100% Feeding Ability Assist with Tray Set Up Urine Appearance Sediment Cloudy Cloudy Uretheral (Orellana) Cloudy Urine Color Yellow Yellow Uretheral (Orellana) Yellow Dark Yellow Urine Odor Normal Stool Size Small Stool Color Brown Brown Brown Green Stool Consistency Liquid Soft Soft Head Head exam: Present atraumatic and normal inspection Eye Eye exam: Present normal appearance ENT ENT exam: Present mucous membranes moist, normal exam and normal external ear exam Neck Neck exam: Present normal inspection Respiratory Respiratory exam: Present normal respiratory exam Cardiovascular Cardiovascular exam: Present normal rate and rhythm GI/Abdominal GI/Abdominal exam: Present normal bowel sounds Back Exam Back exam: Present normal inspection Neurological Exam Neurological exam: Present alert and oriented X3 Skin Skin exam: Present intact and warm OBJ DATA Labs 03/07/22 06:08 03/11/22 05:50 Labs: Abnormal Lab Results 03/11/22 05:50 Carbon Dioxide 19 L BUN 32 H Creatinine 1.4 H Uric Acid 8.1 H Lactate Dehydrogenase 322 H Albumin 3.0 L Globulin 3.9 H Albumin/Globulin Ratio 0.8 L Triglycerides 179 H Meds: Medications Acetaminophen (Acetaminophen 325 Mg Tablet) 650 mg PO Q6HP PRN; Protocol PRN Reason: Per Pain Protocol/Fever > 101 Last Admin: 03/12/22 20:55 Dose: 650 mg Albuterol/Ipratropium (Ipratropium/Albuterol 3 Ml Ampul.Neb) 3 ml NEB Q4HRT PRN PRN Reason: Wheezing Amlodipine Besylate (Amlodipine 10 Mg Tablet) 10 mg PO DAILY [facility] Last Admin: 03/13/22 10:19 Dose: 10 mg Carvedilol (Carvedilol 12.5 Mg Tablet) 12.5 mg PO BID [facility] Last Admin: 03/13/22 10:21 Dose: 12.5 mg Enoxaparin Sodium (Enoxaparin 30 Mg/0.3 Ml Syringe) 30 mg SQ DAILY [facility] Last Admin: 03/13/22 10:17 Dose: 30 mg Hydralazine HCl (Hydralazine 20 Mg/Ml Vial) 0 mg IV Q2HP PRN PRN Reason: Hypertension Last Admin: 03/10/22 20:15 Dose: 10 mg Labetalol HCl (Labetalol 5 Mg/Ml Ml) 0 mg IV Q2HP PRN PRN Reason: Hypertension Levothyroxine Sodium (Levothyroxine 100 Mcg Vial) 100 mcg IV QAMAC [facility] Last Admin: 03/13/22 07:42 Dose: 100 mcg Lorazepam (Lorazepam 1 Mg Tablet) 1 mg PO Q8HP PRN PRN Reason: Anxiety Last Admin: 03/12/22 17:26 Dose: 1 mg Melatonin (Melatonin 3 Mg Tablet) 3 mg PO QHS [facility] Last Admin: 03/12/22 20:56 Dose: 3 mg Nicotine (Nicotine 14 Mg Patch) 14 mg TOPICAL DAILY@1000 [facility] Last Admin: 03/13/22 10:21 Dose: 14 mg Ondansetron HCl (Ondansetron 4 Mg/2 Ml Vial) 4 mg IV Q6HP PRN PRN Reason: Nausea And Vomiting Last Admin: 03/08/22 08:54 Dose: 4 mg Sodium Chloride (0.9 % Sodium Chloride 10 Ml Syringe) 10 ml IV Q8 [facility] Last Admin: 03/13/22 06:00 Dose: 10 ml Trazodone HCl (Trazodone Hcl 50 Mg Tablet) 50 mg PO HS [facility] Last Admin: 03/12/22 20:56 Dose: 50 mg A/P Assessment and plan (1) Methamphetamine use: Status: Acute (2) Marijuana use: Status: Acute (3) Acute delirium: Status: Acute (4) Ileus: Status: Acute (5) DVT (deep venous thrombosis): Status: Acute (6) Hypothyroidism: Status: Acute Qualifiers: Hypothyroidism type: unspecified Qualified Code(s): E03.9 - Hypothyroidism, unspecified (7) Hypertensive urgency: Status: Acute Narrative A/P Narrative: Assessment and Plans: *Mild ileus: resolved -Dr. Summers following -tolerating diet *Encephalopathy/Acute delirium/flat affect: 2/2 UTI + likely psych + ?h ypothyroid: waxes/wanes, improving -Continue to monitor, -CT brain mild atrophy and chronic ischemic changes. No acute findings. -severe agitation last night, multiple sedation medications *Cognitive impairment vs ?Dementia vs Psych -telepsych eval-> rec PO zyprexa, will now D/C and re-eval day to day *Hypertensive urgency: resolved -Likely 2/2 methamphetamine abuse -Resume oral norvasc/coreg, Hydralazine IV PRN *severe Hypothyroidism: 2/2 medication noncompliance -tsh>100, T4<0.10 ; possibly contributing to AMS -restart synthroid IV for now, patient states she does not take regularly at home *?POLY on CKD IIIb: -s/p IVF, monitor *UTI(Klebsiella oxytocin): -levaquin finished *h/o DVT:was on eliqius in past, not on anymore *Tobacco abuse: Smoking cessation counseling *Generalized weakness/deconditioning: -PT/OT -CM for placement (homeless) *ppx: lovenox Time Spent With Patient Time: Total time spent is greater than 50% in coordination of care (as documented) at patient's floor/unit and/or counseling patient: Subsequent: Total time with patient: 25 - 34 minutes QUALITY Stroke Symptom Onset Unknown: No VTE Deep Vein Thrombosis/Pulmonary Embolism Present on Admission: No
[2022-03-13] MEDS: LORazepam 1 MG TABLET PO PRN (12:41)
[2022-03-14 10:14] LABS: Cannabinoid Confirmation Positive
== END 2022-03-13 14:05 | disposition left against medical advice (07) | DRG 388 ==
LOC: ED 00:29 → MEDSUR 00:29
PROVIDERS: ADMIT Internal Medicine; ATTEND Student in an Organized Health Care Education/Training Program